=== PATIENT | male | born 1935 | race Caucasian/White ===

== ENCOUNTER 2016-12-15 21:27 | Inpatient (IN) | payer OTHER, MEDICAID ==
[~2016-12-15] VITALS: Ht 175.3 cm; Wt 101.4 kg
[~2016-12-15 21:27] MED LIST: ASCO100072 PO; ASPI-515 PO; CEFT1VIA IV; CELE200C PO; DOCU-30 PO; ERGO500047 PO; FERR325T20 PO; GABA100C PO; HEPA50004 SQ; HYDR-3307 PO; LACT1CAP35 PO; METH1TAB10 PO; METO25TA2 PO; PANT40GR PO; SULF1TAB24 PO; ZINC1CAP; [UNRECOGNIZED DRUG - CODE] PO
[2016-12-15] MEDS ORDERED: ALBUTEROL/IPRATROPIUM 2.5MG/0.5MG, 3 ML ONE (22:12)
[2016-12-15] MEDS ORDERED: CEFTRIAXONE PMX 1GM/50ML 50 ML ONE (22:23)
[2016-12-15] MEDS ORDERED: ALBUTEROL/IPRATROPIUM 2.5MG/0.5MG, 3 ML NPPB ONE (22:30)
[2016-12-15] MEDS ORDERED: SODIUM CHLORIDE 0.9% 1,000ML IVBOLUS ONE ×2 (22:30→23:30)
[2016-12-15] MEDS ORDERED: CEFTRIAXONE PMX 1GM/50ML 50 ML IV ONE (22:30)
[2016-12-15] MEDS ORDERED: SODIUM CHLORIDE FLUSH 10ML SYR IVF ONE (22:30)
[2016-12-15 22:52] LABS: ASPARTATE AMINO TRANSFERASE 68 U/L (15-37); BLOOD UREA NITROGEN 45 mg/dL (7-18)
[2016-12-15 22:59] LABS: IS PT STATUS REG ER OR PRE ER? YES
[2016-12-15] MEDS ORDERED: AZITHROMYCIN 500 MG in SODIUM CHLORIDE 0.9% 250 ML IV ONE (23:30)
[2016-12-15] MEDS ORDERED: LOSA50TA6 PO (23:45)
[2016-12-15] MEDS ORDERED: ASPI-650 PO (23:52)
[2016-12-15] MEDS ORDERED: HYDR-3144 PO (23:52)
[2016-12-15] MEDS ORDERED: LEVO50TA5 PO (23:52)
[2016-12-15] MEDS ORDERED: SENN8.6T79 PO (23:52)
[2016-12-15] MEDS ORDERED: LORA0.5T PO (23:52)
[2016-12-15] MEDS ORDERED: OMEG-160 PO (23:52)
[2016-12-15] MEDS ORDERED: GABA-826 PO (23:52)
[2016-12-15] MEDS ORDERED: ASCO10004 PO (23:52)
[2016-12-15] MEDS ORDERED: FERR324T5 PO (23:52)
[2016-12-15] MEDS ORDERED: CHOL200024 PO (23:52)
[2016-12-16] MEDS ORDERED: DOCUSATE 100 MG CAPSULE PO PRN (02:00)
[2016-12-16] MEDS: AZITHROMYCIN 500 MG in SODIUM CHLORIDE 0.9% 250 ML IV SCH (02:00)
[2016-12-16] MEDS ORDERED: ACETAMINOPHEN 325 MG TABLET PO PRN (02:00)
[2016-12-16] MEDS ORDERED: TRAZODONE 50MG TABLET PO PRN (02:00)
[2016-12-16] MEDS ORDERED: ONDANSETRON 2MG/ML, 2ML IVPush PRN (02:00)
[2016-12-16] MEDS ORDERED: POLYETHYLENE GLYCOL 17 GM PACKET PO PRN (02:00)
[2016-12-16] MEDS: SODIUM CHLORIDE 0.9% 1,000 ML IV SCH ×3 (02:00→18:33)
[2016-12-16] MEDS ORDERED: LABETALOL 5MG/ML, 20ML IVPush PRN (02:00)
[2016-12-16] MEDS ORDERED: BISACODYL 10 MG SUPP PR PRN (02:00)
[2016-12-16] MEDS: HEPARIN 5,000 UNITS/ML, 1ML SQ SCH ×3 (03:35→20:44)
[2016-12-16 05:18] LABS: ASPARTATE AMINO TRANSFERASE 87 U/L (15-37); BLOOD UREA NITROGEN 46 mg/dL (7-18)
[2016-12-16] MEDS: ALBUTEROL/IPRATROPIUM 2.5MG/0.5MG, 3 ML NPPB SCH ×5 (06:00→22:00)
[2016-12-16] MEDS: LEVOTHYROXINE 50 MCG TABLET PO SCH (07:30)
[2016-12-16] MEDS: CHOLECALCIFEROL 1,000 UNIT TABLET PO SCH (08:37)
[2016-12-16] MEDS: ASCORBIC ACID 500 MG TABLET PO SCH (08:37)
[2016-12-16] MEDS: HYDROcodone/APAP 10/325 MG TABLET PO SCH ×3 (08:37→20:43)
[2016-12-16] MEDS: FERROUS SULFATE 325 MG TABLET PO SCH (08:38)
[2016-12-16] MEDS: GABAPENTIN 100 MG CAPSULE PO SCH ×2 (08:38→20:44)
[2016-12-16] MEDS: ASPIRIN 325 MG TABLET EC PO SCH (08:38)
[2016-12-16] MEDS ORDERED: PANTOPRAZOLE GRAN. PKT 40 MG PO SCH (09:00)
[2016-12-16] MEDS ORDERED: FAMOTIDINE 20 MG TABLET PO SCH (09:30)
[2016-12-16 13:58] VITALS: BP 102/53
[2016-12-16 20:04] VITALS: BP 97/44
[2016-12-16] MEDS ORDERED: LOSARTAN 50MG TABLET PO SCH (21:00)
[2016-12-16] MEDS: CEFTRIAXONE PMX 2GM/50ML 50 ML IVPB SCH (22:49)
[2016-12-17] MEDS: SODIUM CHLORIDE 0.9% 1,000 ML IV SCH ×4 (00:58→20:59)
[2016-12-17 02:00] VITALS: BP 133/71
[2016-12-17] MEDS: AZITHROMYCIN 500 MG in SODIUM CHLORIDE 0.9% 250 ML IV SCH (02:00)
[2016-12-17] MEDS: LEVOTHYROXINE 50 MCG TABLET PO SCH (04:44)
[2016-12-17] MEDS: HEPARIN 5,000 UNITS/ML, 1ML SQ SCH ×3 (04:45→20:59)
[2016-12-17 06:00] LABS: BLOOD UREA NITROGEN 43 mg/dL (7-18)
[2016-12-17] MEDS: ALBUTEROL/IPRATROPIUM 2.5MG/0.5MG, 3 ML NPPB SCH ×3 (07:20→20:53)
[2016-12-17 07:26] VITALS: BP 133/63
[2016-12-17] MEDS: HYDROcodone/APAP 10/325 MG TABLET PO SCH ×3 (08:18→20:59)
[2016-12-17] MEDS: FERROUS SULFATE 325 MG TABLET PO SCH (08:18)
[2016-12-17] MEDS: GABAPENTIN 100 MG CAPSULE PO SCH ×2 (08:18→20:59)
[2016-12-17] MEDS: FAMOTIDINE 20 MG TABLET PO SCH (08:19)
[2016-12-17] MEDS: ASPIRIN 325 MG TABLET EC PO SCH (08:19)
[2016-12-17] MEDS: ASCORBIC ACID 500 MG TABLET PO SCH (08:19)
[2016-12-17 13:56] VITALS: BP 114/57
[2016-12-17 20:49] VITALS: BP 110/66
[2016-12-17] MEDS: CEFTRIAXONE PMX 2GM/50ML 50 ML IVPB SCH (22:04)
[2016-12-18 01:10] VITALS: BP 116/49
[2016-12-18] MEDS: AZITHROMYCIN 500 MG in SODIUM CHLORIDE 0.9% 250 ML IV SCH (02:14)
[2016-12-18] MEDS: HEPARIN 5,000 UNITS/ML, 1ML SQ SCH ×3 (05:20→21:01)
[2016-12-18] MEDS: LEVOTHYROXINE 50 MCG TABLET PO SCH (05:20)
[2016-12-18] MEDS: SODIUM CHLORIDE 0.9% 1,000 ML IV SCH ×2 (05:21→12:30)
[2016-12-18 06:01] LABS: BLOOD UREA NITROGEN 32 mg/dL (7-18)
[2016-12-18] MEDS: ALBUTEROL/IPRATROPIUM 2.5MG/0.5MG, 3 ML NPPB SCH ×2 (09:00→22:10)
[2016-12-18 09:14] VITALS: BP 139/57
[2016-12-18] MEDS: FAMOTIDINE 20 MG TABLET PO SCH (10:23)
[2016-12-18] MEDS: FERROUS SULFATE 325 MG TABLET PO SCH (10:23)
[2016-12-18] MEDS: HYDROcodone/APAP 10/325 MG TABLET PO SCH ×3 (10:23→21:11)
[2016-12-18] MEDS: ASPIRIN 325 MG TABLET EC PO SCH (10:24)
[2016-12-18] MEDS: GABAPENTIN 100 MG CAPSULE PO SCH ×2 (10:24→21:11)
[2016-12-18] MEDS: ASCORBIC ACID 500 MG TABLET PO SCH (10:24)
[2016-12-18] MEDS: CHOLECALCIFEROL 1,000 UNIT TABLET PO SCH (10:24)
[2016-12-18 14:42] VITALS: BP 138/61
[2016-12-18 20:43] VITALS: BP 151/67
[2016-12-18] MEDS: CEFTRIAXONE PMX 2GM/50ML 50 ML IVPB SCH (21:14)
[2016-12-19] MEDS: AZITHROMYCIN 500 MG in SODIUM CHLORIDE 0.9% 250 ML IV SCH (01:36)
[2016-12-19 02:27] VITALS: BP 142/75
[2016-12-19] MEDS: HEPARIN 5,000 UNITS/ML, 1ML SQ SCH ×3 (05:32→20:48)
[2016-12-19] MEDS: LEVOTHYROXINE 50 MCG TABLET PO SCH (05:32)
[2016-12-19 05:55] LABS: BLOOD UREA NITROGEN 22 mg/dL (7-18)
[2016-12-19 06:44] LABS: DIFF TOTAL CELLS COUNTED 100 CELL DIFF; VERIFY COUNTS? YES
[2016-12-19 06:46] LABS: ANISOCYTOSIS 1+
[2016-12-19 06:47] LABS: POLYCHROMASIA 1+
[2016-12-19 07:12] VITALS: BP 162/68
[2016-12-19] MEDS ORDERED: FUROSEMIDE 20 MG/2 ML IV ONE (07:30)
[2016-12-19] MEDS: ALBUTEROL/IPRATROPIUM 2.5MG/0.5MG, 3 ML NPPB SCH (09:00)
[2016-12-19] MEDS: FAMOTIDINE 20 MG TABLET PO SCH (09:05)
[2016-12-19] MEDS: HYDROcodone/APAP 10/325 MG TABLET PO SCH ×3 (09:05→20:47)
[2016-12-19] MEDS: ASPIRIN 81 MG TABLET EC PO SCH (09:05)
[2016-12-19] MEDS: FERROUS SULFATE 325 MG TABLET PO SCH (09:05)
[2016-12-19] MEDS: ASCORBIC ACID 500 MG TABLET PO SCH (09:05)
[2016-12-19] MEDS: GABAPENTIN 100 MG CAPSULE PO SCH ×2 (09:05→20:47)
[2016-12-19 14:00] VITALS: BP 139/65
[2016-12-19 18:29] VITALS: BP 150/75
[2016-12-19] MEDS ORDERED: ALBUTEROL/IPRATROPIUM 2.5MG/0.5MG, 3 ML NPPB PRN (21:00)
[2016-12-19] MEDS: CEFTRIAXONE PMX 2GM/50ML 50 ML IVPB SCH (21:57)
[2016-12-20] MEDS: AZITHROMYCIN 500 MG in SODIUM CHLORIDE 0.9% 250 ML IV SCH (02:06)
[2016-12-20 03:00] VITALS: BP 165/81
[2016-12-20 05:32] LABS: BLOOD UREA NITROGEN 16 mg/dL (7-18)
[2016-12-20] MEDS: LEVOTHYROXINE 50 MCG TABLET PO SCH (06:10)
[2016-12-20] MEDS: HEPARIN 5,000 UNITS/ML, 1ML SQ SCH ×3 (06:10→20:43)
[2016-12-20 07:24] VITALS: BP 166/75
[2016-12-20] MEDS: FAMOTIDINE 20 MG TABLET PO SCH ×2 (09:27→20:42)
[2016-12-20] MEDS: FERROUS SULFATE 325 MG TABLET PO SCH (09:27)
[2016-12-20] MEDS: GABAPENTIN 100 MG CAPSULE PO SCH ×2 (09:27→20:42)
[2016-12-20] MEDS: ASCORBIC ACID 500 MG TABLET PO SCH (09:27)
[2016-12-20] MEDS: HYDROcodone/APAP 10/325 MG TABLET PO SCH ×3 (09:27→20:42)
[2016-12-20] MEDS: ASPIRIN 81 MG TABLET EC PO SCH (09:29)
[2016-12-20 13:35] VITALS: BP 147/82
[2016-12-20] MEDS ORDERED: FUROSEMIDE 20 MG/2 ML IV ONE (16:00)
[2016-12-20 19:08] VITALS: BP 166/78
[2016-12-20] MEDS: CEFTRIAXONE PMX 2GM/50ML 50 ML IVPB SCH (22:21)
[2016-12-21 01:16] VITALS: BP 171/81
[2016-12-21] MEDS: AZITHROMYCIN 500 MG in SODIUM CHLORIDE 0.9% 250 ML IV SCH (02:00)
[2016-12-21 03:00] VITALS: BP 164/76
[2016-12-21] MEDS ORDERED: AZITHROMYCIN 500 MG TABLET PO ONE (05:00)
[2016-12-21] MEDS: HEPARIN 5,000 UNITS/ML, 1ML SQ SCH ×4 (05:00→21:43)
[2016-12-21 05:37] LABS: BLOOD UREA NITROGEN 13 mg/dL (7-18)
[2016-12-21] MEDS: LEVOTHYROXINE 50 MCG TABLET PO SCH (06:02)
[2016-12-21 07:13] VITALS: BP 160/70
[2016-12-21] MEDS: ASCORBIC ACID 500 MG TABLET PO SCH (09:30)
[2016-12-21] MEDS: FERROUS SULFATE 325 MG TABLET PO SCH (09:30)
[2016-12-21] MEDS: FAMOTIDINE 20 MG TABLET PO SCH (09:30)
[2016-12-21] MEDS: HYDROcodone/APAP 10/325 MG TABLET PO SCH ×3 (09:30→21:42)
[2016-12-21] MEDS: GABAPENTIN 100 MG CAPSULE PO SCH ×2 (09:30→21:42)
[2016-12-21] MEDS: ASPIRIN 81 MG TABLET EC PO SCH (09:30)
[2016-12-21] MEDS: CHOLECALCIFEROL 1,000 UNIT TABLET PO SCH (09:34)
[2016-12-21 13:31] VITALS: BP 148/66
[2016-12-21] MEDS ORDERED: FUROSEMIDE 20 MG/2 ML IV ONE (14:30)
[2016-12-21 18:40] VITALS: BP 153/68
[2016-12-21] MEDS: DOXYCYCLINE 100MG TABLET PO SCH (21:42)
[2016-12-21] MEDS: CEFDINIR 300 MG CAPSULE PO SCH (21:42)
[2016-12-22 01:18] VITALS: BP 139/74
[2016-12-22] MEDS: HEPARIN 5,000 UNITS/ML, 1ML SQ SCH ×4 (05:00→21:03)
[2016-12-22] MEDS: LEVOTHYROXINE 50 MCG TABLET PO SCH (06:36)
[2016-12-22 07:00] VITALS: BP 164/76
[2016-12-22] MEDS: FAMOTIDINE 20 MG TABLET PO SCH ×2 (08:45→21:02)
[2016-12-22] MEDS: CEFDINIR 300 MG CAPSULE PO SCH ×2 (08:45→21:03)
[2016-12-22] MEDS: ASCORBIC ACID 500 MG TABLET PO SCH (08:45)
[2016-12-22] MEDS: GABAPENTIN 100 MG CAPSULE PO SCH ×2 (08:45→21:03)
[2016-12-22] MEDS: ASPIRIN 81 MG TABLET EC PO SCH (08:45)
[2016-12-22] MEDS: FERROUS SULFATE 325 MG TABLET PO SCH (08:45)
[2016-12-22] MEDS: DOXYCYCLINE 100MG TABLET PO SCH ×2 (08:45→21:02)
[2016-12-22] MEDS: HYDROcodone/APAP 10/325 MG TABLET PO SCH ×3 (08:46→21:03)
[2016-12-22 14:04] VITALS: BP 134/76
[2016-12-22] MEDS ORDERED: MAGNESIUM SULFATE PMX 2GM/50ML 50 ML IV ONE (14:30)
[2016-12-22] MEDS ORDERED: FUROSEMIDE 20 MG/2 ML IV ONE (15:00)
[2016-12-22] MEDS ORDERED: LOSA50TA2 PO (15:18)
[2016-12-22] MEDS ORDERED: CEFD300C37 PO (15:18)
[2016-12-22] MEDS ORDERED: DOXY100T PO (15:18)
[2016-12-22] MEDS ORDERED: FURO-93 PO (15:18)
[2016-12-22 20:42] VITALS: BP 138/60
[2016-12-22] MEDS: LOSARTAN 50MG TABLET PO SCH (21:03)
[2016-12-23 02:25] VITALS: BP 168/76
[2016-12-23] MEDS: LEVOTHYROXINE 50 MCG TABLET PO SCH (05:21)
[2016-12-23] MEDS: HEPARIN 5,000 UNITS/ML, 1ML SQ SCH ×3 (05:22→17:23)
[2016-12-23] MEDS: FUROSEMIDE 20 MG/2 ML IV SCH ×3 (06:03→17:23)
[2016-12-23 08:44] VITALS: BP 161/78
[2016-12-23] MEDS: CHOLECALCIFEROL 1,000 UNIT TABLET PO SCH (08:47)
[2016-12-23] MEDS: GABAPENTIN 100 MG CAPSULE PO SCH ×2 (08:47→21:35)
[2016-12-23] MEDS: CEFDINIR 300 MG CAPSULE PO SCH ×2 (08:47→21:35)
[2016-12-23] MEDS: DOXYCYCLINE 100MG TABLET PO SCH ×2 (08:47→21:35)
[2016-12-23] MEDS: FAMOTIDINE 20 MG TABLET PO SCH ×2 (08:47→21:35)
[2016-12-23] MEDS: FERROUS SULFATE 325 MG TABLET PO SCH (08:47)
[2016-12-23] MEDS: ASPIRIN 81 MG TABLET EC PO SCH (08:48)
[2016-12-23] MEDS: ASCORBIC ACID 500 MG TABLET PO SCH (08:48)
[2016-12-23] MEDS: HYDROcodone/APAP 10/325 MG TABLET PO SCH ×3 (09:04→21:35)
[2016-12-23 15:24] VITALS: BP 119/71
[2016-12-23 20:27] VITALS: BP 115/73
[2016-12-23] MEDS: LOSARTAN 50MG TABLET PO SCH (21:35)
[2016-12-24] MEDS: HEPARIN 5,000 UNITS/ML, 1ML SQ SCH ×4 (01:30→17:00)
[2016-12-24 01:42] VITALS: BP 134/71
[2016-12-24] MEDS: LEVOTHYROXINE 50 MCG TABLET PO SCH (04:45)
[2016-12-24 05:50] LABS: BLOOD UREA NITROGEN 21 mg/dL (7-18)
[2016-12-24 06:35] LABS: DIFF TOTAL CELLS COUNTED 100 CELL DIFF
[2016-12-24 06:40] LABS: ANISOCYTOSIS 1+; POLYCHROMASIA 1+; VERIFY COUNTS? YES
[2016-12-24 07:30] VITALS: BP 141/84
[2016-12-24] MEDS: FUROSEMIDE 20 MG/2 ML IV SCH ×2 (08:01→17:40)
[2016-12-24] MEDS: CEFDINIR 300 MG CAPSULE PO SCH ×2 (10:24→20:13)
[2016-12-24] MEDS: FERROUS SULFATE 325 MG TABLET PO SCH (10:24)
[2016-12-24] MEDS: DOXYCYCLINE 100MG TABLET PO SCH ×2 (10:24→20:13)
[2016-12-24] MEDS: GABAPENTIN 100 MG CAPSULE PO SCH ×2 (10:24→20:13)
[2016-12-24] MEDS: ASCORBIC ACID 500 MG TABLET PO SCH (10:24)
[2016-12-24] MEDS: FAMOTIDINE 20 MG TABLET PO SCH ×2 (10:24→20:13)
[2016-12-24] MEDS: ASPIRIN 81 MG TABLET EC PO SCH (10:24)
[2016-12-24] MEDS: HYDROcodone/APAP 10/325 MG TABLET PO SCH ×3 (10:24→20:13)
[2016-12-24 12:44] VITALS: BP 132/66
[2016-12-24 18:18] VITALS: BP 130/69
[2016-12-24] MEDS: LOSARTAN 50MG TABLET PO SCH (20:13)
[2016-12-25] MEDS: HEPARIN 5,000 UNITS/ML, 1ML SQ SCH ×2 (01:00→08:01)
[2016-12-25 01:28] VITALS: BP 124/69
[2016-12-25] MEDS: LEVOTHYROXINE 50 MCG TABLET PO SCH (06:02)
[2016-12-25 06:52] VITALS: BP 145/83
[2016-12-25] MEDS: ASCORBIC ACID 500 MG TABLET PO SCH (07:59)
[2016-12-25] MEDS: CEFDINIR 300 MG CAPSULE PO SCH (07:59)
[2016-12-25] MEDS: FAMOTIDINE 20 MG TABLET PO SCH (07:59)
[2016-12-25] MEDS: GABAPENTIN 100 MG CAPSULE PO SCH (07:59)
[2016-12-25] MEDS: DOXYCYCLINE 100MG TABLET PO SCH (07:59)
[2016-12-25] MEDS: FUROSEMIDE 20 MG/2 ML IV SCH (07:59)
[2016-12-25] MEDS: FERROUS SULFATE 325 MG TABLET PO SCH (08:00)
[2016-12-25] MEDS: ASPIRIN 81 MG TABLET EC PO SCH (08:00)
[2016-12-25] MEDS: CHOLECALCIFEROL 1,000 UNIT TABLET PO SCH (08:07)
[2016-12-25] MEDS: HYDROcodone/APAP 10/325 MG TABLET PO SCH (08:07)
== END 2016-12-25 14:21 | disposition home or self-care (01) | DRG 871 ==
LOC: ED 23:20 → EDIP 23:31 → CCU 12-16 01:17 → 4WST 12-16 13:10
PROVIDERS: ADMIT Internal Medicine
PROC: 0T9B70Z Drainage of Bladder with Drainage Device, Via Natural or Artificial Opening (ICD-10-PCS; principal; 2016-12-16)
DX: A41.9 Sepsis, unspecified organism (principal); J18.9 Pneumonia, unspecified organism; E43 Unspecified severe protein-calorie malnutrition; J96.01 Acute respiratory failure with hypoxia; I50.31 Acute diastolic (congestive) heart failure; N17.0 Acute kidney failure with tubular necrosis; G82.20 Paraplegia, unspecified; I10 Essential (primary) hypertension; E11.9 Type 2 diabetes mellitus without complications; G89.29 Other chronic pain; M54.9 Dorsalgia, unspecified; D64.9 Anemia, unspecified; D69.6 Thrombocytopenia, unspecified; E03.9 Hypothyroidism, unspecified; E78.5 Hyperlipidemia, unspecified; I11.0 Hypertensive heart disease with heart failure; K21.9 Gastro-esophageal reflux disease without esophagitis; N43.3 Hydrocele, unspecified; N50.89 Other specified disorders of the male genital organs; R65.20 Severe sepsis without septic shock; Z74.01 Bed confinement status; Z79.4 Long term (current) use of insulin; Z85.828 Personal history of other malignant neoplasm of skin; Z87.442 Personal history of urinary calculi; Z87.891 Personal history of nicotine dependence
CPT/HCPCS: 36415; 71010; 76770; 76870; 80048; 80053; 81001; 82436; 82570; 83036; 83605; 83735; 83880; 84133; 84145; 84300; 84439; 84443; 84484; 85025; 85610; 85730; 87040; 87081; 87086; 87324; 93005; 93306; 93970; 94640; 96361; 96365; J0456; J0696; J1644; J7620; J1940; J3475; J7030; J7050

== ENCOUNTER → 2017-02-05 | Outpatient (CLI) | payer OTHER, MEDICAID ==
[~2017-02-05] MED LIST changes: +ASCO10004 PO; +ASPI-650 PO; +CEFD300C37 PO; +CHOL200024 PO; +DOXY100T PO; +FERR324T5 PO; +FURO-93 PO; +GABA-826 PO; +HYDR-3144 PO; +LEVO50TA5 PO; +LORA0.5T PO; +LOSA50TA2 PO; +LOSA50TA6 PO; +OMEG-160 PO; +OMNIPAQUE 350 MG/ML, 75ML BOTTLE ONE; +SENN8.6T79 PO
== END | disposition home or self-care (01) ==
LOC: CFH 14:49
PROVIDERS: ATTEND Physician Assistant Medical
DX: J92.9 Pleural plaque without asbestos (principal); R91.8 Other nonspecific abnormal finding of lung field; I25.10 Atherosclerotic heart disease of native coronary artery without angina pectoris; I51.7 Cardiomegaly; M47.894 Other spondylosis, thoracic region; K76.0 Fatty (change of) liver, not elsewhere classified; Z90.5 Acquired absence of kidney
CPT/HCPCS: 71260; 82565; Q9967

== ENCOUNTER 2018-03-28 11:16 | Inpatient (IN) | payer OTHER, MEDICAID ==
[~2018-03-28] VITALS: Ht 175.3 cm; Wt 89.2 kg
[~2018-03-28 11:16] MED LIST changes: +BISA10SU65 PR; +DOCU-131 PO; -DOCU-30 PO; +FERR325T18 PO; -FERR325T20 PO; +GUAI12009 PO; -HYDR-3144 PO; +HYDR-3245 PO; -LOSA50TA6 PO; +LOSA50TA7 PO; -OMNIPAQUE 350 MG/ML, 75ML BOTTLE ONE; +ZINC50TA3 PO
[2018-03-28 14:27] LABS: BASOPHILS # (AUTO) 0.13 x10^3/uL (0-0.1); BASOPHILS % (AUTO) 1 % (0-1); EOSINOPHILS # (AUTO) 0.74 x10^3/uL (0-0.4); EOSINOPHILS % (AUTO) 6 % (1-7); LYMPHOCYTES # (AUTO) 2.52 x10^3/uL (1-3.4); LYMPHOCYTES % (AUTO) 20 % (22-44); MD NO; MEAN CORPUSCULAR HEMOGLOBIN 28.6 pg (27.5-34.5); MEAN CORPUSCULAR HGB CONC 32.2 g/dL (33.2-36.2); MEAN CORPUSCULAR VOLUME 89.1 fL (81-97); MEAN PLATELET VOLUME 7.9 fL (7.4-10.4); MONOCYTES # (AUTO) 0.68 x10^3/uL (0.2-0.8); MONOCYTES % (AUTO) 5 % (2-9); NEUTROPHILS % (AUTO) 68 % (42-75); PLATELET COUNT 355 x10^3/uL (130-400); RED BLOOD COUNT 4.26 x10^6/uL (4.38-5.82); RED CELL DISTRIBUTION WIDTH 16.3 % (9.4-14.8)
[2018-03-28 14:33] LABS: ANION GAP 8 mmol/L (5-15); CALCIUM 8.5 mg/dL (8.5-10.1); CHLORIDE 110 mmol/L (98-107); CREATININE 2.09 mg/dL (0.7-1.3)
[2018-03-28] MEDS ORDERED: SODIUM CHLORIDE 0.9% 1,000 ML IV ONE (15:16)
[2018-03-28] MEDS ORDERED: SODIUM CHLORIDE FLUSH 10ML SYR IVF ONE (15:30)
[2018-03-28] MEDS ORDERED: SODIUM CHLORIDE 0.9% 1,000ML IVBOLUS ONE (15:30)
[2018-03-28 16:06] LABS: HEMOGLOBIN A1C 6.1 % (4.2-6.3)
[2018-03-28 16:12] LABS: MICROSCOPIC AUTO
[2018-03-28 16:21] LABS: CULTURE INDICATED? YES
[2018-03-28] MEDS ORDERED: morphine SULFATE 10 MG/ML, 1ML IVPush PRN (17:00)
[2018-03-28] MEDS ORDERED: DEXTROSE 50%, 50ML SYRINGE IVPush PRN (17:00)
[2018-03-28] MEDS ORDERED: ONDANSETRON 2MG/ML, 2ML IVPush PRN (17:00)
[2018-03-28] MEDS ORDERED: ACETAMINOPHEN 325 MG TABLET PO PRN (17:00)
[2018-03-28] MEDS ORDERED: DOCUSATE 100 MG CAPSULE PO PRN (17:00)
[2018-03-28] MEDS ORDERED: GLUCAGON 1 MG IM PRN (17:00)
[2018-03-28] MEDS ORDERED: POLYETHYLENE GLYCOL 17 GM PACKET PO PRN (17:00)
[2018-03-28] MEDS ORDERED: SODIUM CHLORIDE FLUSH 10ML SYR IVF PRN (17:00)
[2018-03-28] MEDS ORDERED: BISACODYL 10 MG SUPP PR PRN (17:00)
[2018-03-28] MEDS ORDERED: DEXTROSE 4 GM TAB.CHEW PO PRN (17:00)
[2018-03-28] MEDS ORDERED: CEFTRIAXONE 1,000 MG in SODIUM CHLORIDE 0.9% 50 ML IVPB ONE (17:00)
[2018-03-28] MEDS ORDERED: CALCIUM CHLORIDE 10%, 10ML SYR IVPush ONE (17:00)
[2018-03-28] MEDS ORDERED: CALCIUM CHLORIDE 10%, 10ML SYR ONE (17:32)
[2018-03-28] MEDS ORDERED: CEFTRIAXONE PMX 1GM/50ML 50 ML ONE (17:32)
[2018-03-28] MEDS ORDERED: HEPARIN 5,000 UNITS/ML, 1ML ONE (18:17)
[2018-03-28] MEDS: HEPARIN 5,000 UNITS/ML, 1ML SQ SCH (18:25)
[2018-03-28] MEDS: ERTAPENEM 1 GM in SODIUM CHLORIDE 0.9% 50 ML IV SCH (19:21)
[2018-03-28 20:10] VITALS: BP 124/70
[2018-03-28] MEDS: INSULIN LISPRO 100 UNITS/ML, PEN SQ-INSULIN SCH ×2 (21:00→21:05)
[2018-03-28] MEDS: GUAIFENESIN ER 600 MG TABLET PO SCH (22:29)
[2018-03-28] MEDS: DOCUSATE 100 MG CAPSULE PO SCH (22:30)
[2018-03-28] MEDS: SENNOSIDES 8.6 MG TABLET PO SCH (22:31)
[2018-03-28] MEDS: LORazepam 0.5MG TABLET PO SCH (22:31)
[2018-03-28] MEDS: HYDROcodone/APAP 10/325 MG TABLET PO SCH (22:31)
[2018-03-28] MEDS: FAMOTIDINE 20 MG TABLET PO SCH (22:31)
[2018-03-29] MEDS: SODIUM CHLORIDE 0.9% 1,000 ML IV SCH ×3 (00:24→21:06)
[2018-03-29] MEDS: HEPARIN 5,000 UNITS/ML, 1ML SQ SCH ×3 (02:12→16:59)
[2018-03-29] MEDS: GABAPENTIN 100 MG CAPSULE PO SCH ×3 (02:13→21:07)
[2018-03-29] MEDS: SODIUM CHLORIDE FLUSH 10ML SYR IVF SCH ×3 (02:13→21:06)
[2018-03-29 02:19] VITALS: BP 128/73
[2018-03-29 04:49] VITALS: BP 128/71
[2018-03-29 05:40] LABS: ANION GAP 6 mmol/L (5-15); CALCIUM 7.9 mg/dL (8.5-10.1); CHLORIDE 116 mmol/L (98-107)
[2018-03-29 05:48] LABS: BASOPHILS # (AUTO) 0.14 x10^3/uL (0-0.1); BASOPHILS % (AUTO) 1 % (0-1); EOSINOPHILS % (AUTO) 8 % (1-7); LYMPHOCYTES # (AUTO) 2.38 x10^3/uL (1-3.4); LYMPHOCYTES % (AUTO) 24 % (22-44); MD NO; MEAN CORPUSCULAR HEMOGLOBIN 29.2 pg (27.5-34.5); MEAN CORPUSCULAR HGB CONC 32.9 g/dL (33.2-36.2); MEAN CORPUSCULAR VOLUME 88.8 fL (81-97); MEAN PLATELET VOLUME 8.5 fL (7.4-10.4); MONOCYTES # (AUTO) 0.56 x10^3/uL (0.2-0.8); MONOCYTES % (AUTO) 6 % (2-9); NEUTROPHILS # (AUTO) 5.88 x10^3/uL (1.8-6.8); NEUTROPHILS % (AUTO) 60 % (42-75); PLATELET COUNT 287 x10^3/uL (130-400); RED BLOOD COUNT 3.76 x10^6/uL (4.38-5.82); RED CELL DISTRIBUTION WIDTH 15.9 % (9.4-14.8)
[2018-03-29] MEDS: INSULIN LISPRO 100 UNITS/ML, PEN SQ-INSULIN SCH ×3 (07:00→16:59)
[2018-03-29 08:04] VITALS: BP 136/71
[2018-03-29] MEDS: LEVOTHYROXINE 50 MCG TABLET PO SCH (09:00)
[2018-03-29] MEDS ORDERED: LEVOTHYROXINE 25 MCG TABLET ONE (09:08)
[2018-03-29] MEDS: ASPIRIN 325 MG TABLET EC PO SCH (09:13)
[2018-03-29] MEDS: FAMOTIDINE 20 MG TABLET PO SCH ×2 (09:14→21:07)
[2018-03-29] MEDS: FERROUS SULFATE 325 MG TABLET PO SCH (09:14)
[2018-03-29] MEDS: HYDROcodone/APAP 10/325 MG TABLET PO SCH ×3 (09:14→21:08)
[2018-03-29] MEDS: GUAIFENESIN ER 600 MG TABLET PO SCH ×2 (09:14→21:07)
[2018-03-29] MEDS: SENNOSIDES 8.6 MG TABLET PO SCH ×2 (09:15→21:10)
[2018-03-29] MEDS: DOCUSATE 100 MG CAPSULE PO SCH ×2 (09:15→21:07)
[2018-03-29 13:55] VITALS: BP 117/61
[2018-03-29] MEDS: ERTAPENEM 1 GM in SODIUM CHLORIDE 0.9% 50 ML IV SCH (18:05)
[2018-03-29 20:42] VITALS: BP 131/61
[2018-03-29] MEDS: LORazepam 0.5MG TABLET PO SCH (21:07)
[2018-03-30 02:33] VITALS: BP 137/66
[2018-03-30] MEDS: HEPARIN 5,000 UNITS/ML, 1ML SQ SCH ×2 (04:37→13:09)
[2018-03-30 05:26] LABS: ANION GAP 5 mmol/L (5-15); CALCIUM 7.7 mg/dL (8.5-10.1); CHLORIDE 117 mmol/L (98-107); CREATININE 1.19 mg/dL (0.7-1.3)
[2018-03-30] MEDS: INSULIN LISPRO 100 UNITS/ML, PEN SQ-INSULIN SCH ×3 (06:42→16:02)
[2018-03-30] MEDS ORDERED: LEVOTHYROXINE 25 MCG TABLET ONE (09:07)
[2018-03-30] MEDS: FERROUS SULFATE 325 MG TABLET PO SCH (09:18)
[2018-03-30] MEDS: SENNOSIDES 8.6 MG TABLET PO SCH (09:19)
[2018-03-30] MEDS: GABAPENTIN 100 MG CAPSULE PO SCH (09:20)
[2018-03-30] MEDS: HYDROcodone/APAP 10/325 MG TABLET PO SCH ×2 (09:21→16:02)
[2018-03-30] MEDS: ASPIRIN 325 MG TABLET EC PO SCH (09:21)
[2018-03-30] MEDS: GUAIFENESIN ER 600 MG TABLET PO SCH (09:21)
[2018-03-30] MEDS: FAMOTIDINE 20 MG TABLET PO SCH (09:22)
[2018-03-30] MEDS: DOCUSATE 100 MG CAPSULE PO SCH (09:23)
[2018-03-30] MEDS: LEVOTHYROXINE 50 MCG TABLET PO SCH (09:28)
[2018-03-30 09:49] VITALS: BP 130/70
[2018-03-30] MEDS: SODIUM CHLORIDE 0.9% 1,000 ML IV SCH (11:34)
[2018-03-30] MEDS: SODIUM CHLORIDE FLUSH 10ML SYR IVF SCH (13:08)
[2018-03-30 13:26] VITALS: BP 143/72
[2018-03-30] MEDS ORDERED: ERTA1VIA4 IV (14:21)
[2018-03-30] MEDS: ERTAPENEM 1 GM in SODIUM CHLORIDE 0.9% 50 ML IV SCH (18:28)
[2018-03-30 19:29] VITALS: BP 169/72
== END 2018-03-30 20:03 | disposition home or self-care (01) | DRG 871 ==
LOC: ED 16:41 → EDIP 16:42 → SUATTDRO 16:46 → ED 17:02 → 4NOR 19:53
PROVIDERS: ADMIT Family Medicine; ATTEND Family Medicine
PROC: 0T9B70Z Drainage of Bladder with Drainage Device, Via Natural or Artificial Opening (ICD-10-PCS; 2018-03-28)
PROC: 02HV33Z Insertion of Infusion Device into Superior Vena Cava, Percutaneous Approach (ICD-10-PCS; principal; 2018-03-30)
PROC: B5181ZA Fluoroscopy of Superior Vena Cava using Low Osmolar Contrast, Guidance (ICD-10-PCS; 2018-03-30)
PROC: B548ZZA Ultrasonography of Superior Vena Cava, Guidance (ICD-10-PCS; 2018-03-30)
DX: A41.9 Sepsis, unspecified organism (principal); E43 Unspecified severe protein-calorie malnutrition; N17.0 Acute kidney failure with tubular necrosis; N10 Acute pyelonephritis; Z68.29 Body mass index [BMI] 29.0-29.9, adult; G89.29 Other chronic pain; M54.9 Dorsalgia, unspecified; Z16.24 Resistance to multiple antibiotics; R31.9 Hematuria, unspecified; R53.81 Other malaise; E11.22 Type 2 diabetes mellitus with diabetic chronic kidney disease; E78.5 Hyperlipidemia, unspecified; E86.0 Dehydration; E87.5 Hyperkalemia; I12.9 Hypertensive chronic kidney disease with stage 1 through stage 4 chronic kidney disease, or unspecified chronic kidney disease; K21.9 Gastro-esophageal reflux disease without esophagitis; N18.9 Chronic kidney disease, unspecified; N28.1 Cyst of kidney, acquired; Z66 Do not resuscitate; Z83.3 Family history of diabetes mellitus; Z85.828 Personal history of other malignant neoplasm of skin; Z87.442 Personal history of urinary calculi; Z87.891 Personal history of nicotine dependence; Z90.5 Acquired absence of kidney
CPT/HCPCS: 36415; 36569; 76770; 76937; 77001; 80048; 81001; 82040; 82043; 82570; 82962; 83036; 83605; 83735; 84100; 85025; 87040; 87077; 87086; 87186; 93005; 96372; 96374; 96375; 99285; G0378; J0696; J1335; J1644; C1751; J7030

== ENCOUNTER 2018-04-10 10:32 | Emergency (ER) | payer OTHER, MEDICAID ==
[~2018-04-10] VITALS: Ht 175.3 cm; Wt 90.0 kg
[~2018-04-10 10:32] MED LIST changes: +ERTA1VIA4 IV
[2018-04-10 11:40] LABS: BASOPHILS % (AUTO) 1 % (0-1); EOSINOPHILS # (AUTO) 0.52 x10^3/uL (0-0.4); EOSINOPHILS % (AUTO) 4 % (1-7); LYMPHOCYTES % (AUTO) 17 % (22-44); MD NO; MEAN CORPUSCULAR HEMOGLOBIN 28.7 pg (27.5-34.5); MEAN CORPUSCULAR HGB CONC 32.6 g/dL (33.2-36.2); MEAN CORPUSCULAR VOLUME 88.1 fL (81-97); MEAN PLATELET VOLUME 7.7 fL (7.4-10.4); MONOCYTES # (AUTO) 0.76 x10^3/uL (0.2-0.8); MONOCYTES % (AUTO) 6 % (2-9); NEUTROPHILS # (AUTO) 8.93 x10^3/uL (1.8-6.8); NEUTROPHILS % (AUTO) 72 % (42-75); PLATELET COUNT 339 x10^3/uL (130-400); RED BLOOD COUNT 4.25 x10^6/uL (4.38-5.82); RED CELL DISTRIBUTION WIDTH 14.8 % (9.4-14.8)
[2018-04-10 11:50] LABS: ALBUMIN 2.9 g/dL (3.4-5.0); ANION GAP 8 mmol/L (5-15); CALCIUM 8.3 mg/dL (8.5-10.1); CHLORIDE 113 mmol/L (98-107); CREATININE 1.12 mg/dL (0.7-1.3)
[2018-04-10 13:40] LABS: MICROSCOPIC INDICATED
[2018-04-10 13:45] LABS: CULTURE INDICATED? YES
[2018-04-10 15:26] VITALS: BP 134/70
== END 2018-04-10 15:29 | disposition home or self-care (01) ==
LOC: ED 12:51
DX: R33.9 Retention of urine, unspecified (principal); E11.9 Type 2 diabetes mellitus without complications; I10 Essential (primary) hypertension; K21.9 Gastro-esophageal reflux disease without esophagitis; E78.5 Hyperlipidemia, unspecified; Z87.891 Personal history of nicotine dependence
CPT/HCPCS: 36415; 80048; 81001; 82040; 85025; 87086; 87106; 99284

== ENCOUNTER 2018-06-08 09:56 | Emergency (ER) | payer OTHER, MEDICAID ==
[~2018-06-08] VITALS: Ht 172.7 cm; Wt 80.0 kg
[2018-06-08 09:58] VITALS: BP 135/56
[2018-06-08 10:57] LABS: BASOPHILS # (AUTO) 0.06 x10^3/uL (0-0.1); BASOPHILS % (AUTO) 1 % (0-1); EOSINOPHILS # (AUTO) 0.73 x10^3/uL (0-0.4); EOSINOPHILS % (AUTO) 7 % (1-7); LYMPHOCYTES # (AUTO) 2.44 x10^3/uL (1-3.4); LYMPHOCYTES % (AUTO) 23 % (22-44); MD NO; MEAN CORPUSCULAR HEMOGLOBIN 28.7 pg (27.5-34.5); MEAN CORPUSCULAR HGB CONC 32.3 g/dL (33.2-36.2); MEAN CORPUSCULAR VOLUME 88.9 fL (81-97); MEAN PLATELET VOLUME 7.9 fL (7.4-10.4); MONOCYTES # (AUTO) 0.61 x10^3/uL (0.2-0.8); MONOCYTES % (AUTO) 6 % (2-9); NEUTROPHILS # (AUTO) 6.84 x10^3/uL (1.8-6.8); NEUTROPHILS % (AUTO) 64 % (42-75); PLATELET COUNT 322 x10^3/uL (130-400); RED BLOOD COUNT 4.06 x10^6/uL (4.38-5.82); RED CELL DISTRIBUTION WIDTH 15.4 % (9.4-14.8)
[2018-06-08 11:06] LABS: INTERNATIONAL NORMALIZED RATIO 0.94 (0.93-1.1)
[2018-06-08 11:07] LABS: ANION GAP 7 mmol/L (5-15); CALCIUM 7.6 mg/dL (8.5-10.1); CHLORIDE 109 mmol/L (98-107); CREATININE 1.41 mg/dL (0.7-1.3)
[2018-06-08 11:50] LABS: MICROSCOPIC INDICATED
[2018-06-08 11:51] LABS: CULTURE INDICATED? YES
== END 2018-06-08 13:22 | disposition home or self-care (01) ==
LOC: ED 13:16
DX: R31.0 Gross hematuria (principal); I10 Essential (primary) hypertension; E78.5 Hyperlipidemia, unspecified; E11.9 Type 2 diabetes mellitus without complications; Z87.448 Personal history of other diseases of urinary system; Z87.891 Personal history of nicotine dependence
CPT/HCPCS: 36415; 51702; 80048; 81001; 85025; 85610; 85730; 87077; 87086; 87184; 87186; 99284

== ENCOUNTER 2018-09-20 09:19 | Observation (INO) | payer MEDICARE ==
[~2018-09-20] VITALS: Ht 175.3 cm; Wt 90.1 kg
[~2018-09-20 09:19] MED LIST changes: +FENTANYL PF 100 MCG/2ML IV PRN; +HYDROmorphone 1 MG/ML, 1ML IV PRN; +LABETALOL 5MG/ML, 20ML IV PRN; +LOSA50TA14 PO; -LOSA50TA7 PO; +MEPERIDINE/PF 25MG/0.5ML IVPush PRN; +MIDAZOLAM 1 MG/ML, 2ML IV PRN; +ONDANSETRON 2MG/ML, 2ML IVPush PRN; +OXYcodone 5 MG/5 ML ORAL.SOL UDC PO PRN
[2018-09-20] MEDS ORDERED: PLEASE ENTER HEIGHT AND WEIGHT MC SCH (10:30)
[2018-09-20 10:32] VITALS: BP 116/59
[2018-09-20] MEDS ORDERED: ERTAPENEM 1 GM in SODIUM CHLORIDE 0.9% 50 ML IV STA (10:51)
[2018-09-20] MEDS: LACTATED RINGERS 1,000 ML IV SCH ×2 (11:05→16:04)
[2018-09-20] MEDS ORDERED: FENTANYL PF 100 MCG/2ML ONE (11:16)
[2018-09-20] MEDS ORDERED: MIDAZOLAM 1 MG/ML, 2ML ONE (11:17)
[2018-09-20] MEDS ORDERED: PROPOFOL 10 MG/ML, 20ML ONE (11:20)
[2018-09-20] MEDS ORDERED: METOCLOPRAMIDE 5 MG/ML, 2ML ONE (11:20)
[2018-09-20] MEDS ORDERED: ONDANSETRON 2MG/ML, 2ML ONE (11:20)
[2018-09-20] MEDS ORDERED: DEXAMETHASONE 4 MG/ML, 5ML ONE (11:20)
[2018-09-20] MEDS ORDERED: LIDOCAINE-MPF 2% ,5ML ONE (11:20)
[2018-09-20] MEDS ORDERED: NEOMY/POLYMYXIN B GU IRR. 1 ML ONE (11:21)
[2018-09-20 14:45] VITALS: BP 129/64
[2018-09-20] MEDS ORDERED: D5%-LACTATED RINGERS 1,000 ML IV SCH ×2 (15:00→15:02)
[2018-09-20] MEDS ORDERED: ONDANSETRON 2MG/ML, 2ML IV PRN (15:00)
[2018-09-20] MEDS ORDERED: BISACODYL 10 MG SUPP PR PRN (15:30)
[2018-09-20] MEDS: HYDROcodone/APAP 10/325 MG TABLET PO SCH ×2 (17:28→21:10)
[2018-09-20 19:19] VITALS: BP 100/66
[2018-09-20] MEDS ORDERED: ATORVASTATIN 40 MG TABLET PO SCH (21:00)
[2018-09-20] MEDS ORDERED: LORazepam 0.5MG TABLET PO SCH (21:00)
[2018-09-20] MEDS: DOCUSATE 100 MG CAPSULE PO SCH (21:10)
[2018-09-20] MEDS: SENNOSIDES 8.8 MG/5 ML ORAL SOL PO SCH (21:10)
[2018-09-20] MEDS: GABAPENTIN 100 MG CAPSULE PO SCH (21:10)
[2018-09-20 23:35] VITALS: BP 95/56
[2018-09-21 03:31] VITALS: BP 100/62
[2018-09-21 05:10] LABS: BASOPHILS # (AUTO) 0.01 x10^3/uL (0-0.1); BASOPHILS % (AUTO) 0 % (0-1); EOSINOPHILS % (AUTO) 0 % (1-7); LYMPHOCYTES # (AUTO) 1.01 x10^3/uL (1-3.4); LYMPHOCYTES % (AUTO) 13 % (22-44); MD NO; MEAN CORPUSCULAR HGB CONC 31.6 g/dL (33.2-36.2); MEAN CORPUSCULAR VOLUME 85.6 fL (81-97); MEAN PLATELET VOLUME 7.7 fL (7.4-10.4); MONOCYTES # (AUTO) 0.29 x10^3/uL (0.2-0.8); MONOCYTES % (AUTO) 4 % (2-9); NEUTROPHILS # (AUTO) 6.52 x10^3/uL (1.8-6.8); NEUTROPHILS % (AUTO) 83 % (42-75); PLATELET COUNT 394 x10^3/uL (130-400); RED BLOOD COUNT 3.43 x10^6/uL (4.38-5.82); RED CELL DISTRIBUTION WIDTH 16.1 % (9.4-14.8)
[2018-09-21 05:20] LABS: ANION GAP 4 mmol/L (5-15); CALCIUM 7.8 mg/dL (8.5-10.1); CHLORIDE 111 mmol/L (98-107); CREATININE 2.07 mg/dL (0.7-1.3)
[2018-09-21] MEDS ORDERED: PANTOPROZOLE 40MG TABLET PO SCH (06:00)
[2018-09-21] MEDS ORDERED: LEVOTHYROXINE 50 MCG TABLET PO SCH (06:00)
[2018-09-21 07:03] VITALS: BP 109/63
[2018-09-21] MEDS: SENNOSIDES 8.8 MG/5 ML ORAL SOL PO SCH ×2 (09:00→10:10)
[2018-09-21] MEDS ORDERED: FERROUS SULFATE 325 MG TABLET PO SCH (09:00)
[2018-09-21] MEDS: GABAPENTIN 100 MG CAPSULE PO SCH (09:57)
[2018-09-21] MEDS: DOCUSATE 100 MG CAPSULE PO SCH (09:57)
[2018-09-21] MEDS: HYDROcodone/APAP 10/325 MG TABLET PO SCH (09:57)
[2018-09-21] MEDS ORDERED: ERTAPENEM 1 GM in SODIUM CHLORIDE 0.9% 50 ML IV SCH (10:30)
[2018-09-21] MEDS ORDERED: SULF1TAB24 PO (10:31)
[2018-09-21 13:32] VITALS: BP 127/66
== END 2018-09-21 14:15 | disposition home or self-care (01) ==
LOC: OUT 09:19 → 4NOR 14:29 → OUT 23:15
PROVIDERS: ADMIT Urology; ATTEND Urology
DX: N32.89 Other specified disorders of bladder (principal); R31.0 Gross hematuria; N39.0 Urinary tract infection, site not specified; N18.9 Chronic kidney disease, unspecified; Z93.59 Other cystostomy status; E87.5 Hyperkalemia
CPT/HCPCS: 36415; 51102; 80048; 82962; 85025; 96365; 96366; G0378; J1100; J1335; J2250; J2405; J2704; J2765; J3010; J3490; J7120

== ENCOUNTER 2018-09-28 10:55 | Inpatient (IN) | payer MEDICARE, MEDICAID ==
[~2018-09-28] VITALS: Ht 175.3 cm; Wt 94.9 kg
[~2018-09-28 10:55] MED LIST changes: -FENTANYL PF 100 MCG/2ML IV PRN; -HYDROmorphone 1 MG/ML, 1ML IV PRN; -LABETALOL 5MG/ML, 20ML IV PRN; -MEPERIDINE/PF 25MG/0.5ML IVPush PRN; -MIDAZOLAM 1 MG/ML, 2ML IV PRN; -ONDANSETRON 2MG/ML, 2ML IVPush PRN; -OXYcodone 5 MG/5 ML ORAL.SOL UDC PO PRN
[2018-09-28] MEDS ORDERED: CLOP75TA PO (11:20)
[2018-09-28] MEDS ORDERED: OMEG1CAP24 PO (11:20)
[2018-09-28] MEDS ORDERED: ATOR20TA86 PO (11:20)
[2018-09-28] MEDS ORDERED: LORA0.5T PO (11:22)
[2018-09-28] MEDS ORDERED: SODIUM CHLORIDE FLUSH 10ML SYR IVF ONE ×2 (11:30→13:00)
[2018-09-28] MEDS ORDERED: SODIUM CHLORIDE 0.9% 1,000 ML IV ONE (12:13)
--- NOTE | 2018-09-28 12:18 | NUR ---
BREAK RN: PT RESTING QUIETLY. IV PLACED AND IV BOLUS STARTED. BLOOD SENT TO LAB. NO URINE IN INMAN BAG AT THIS TIME. FAMILY STATES PT HAS HAD DECREASED PO INTAKE AND URINE OUTPUT. PROVIDER AWARE, BLADDER SCAN ORDERED.
[2018-09-28 12:24] LABS: BASOPHILS # (AUTO) 0.09 x10^3/uL (0-0.1); BASOPHILS % (AUTO) 1 % (0-1); EOSINOPHILS # (AUTO) 0.45 x10^3/uL (0-0.4); EOSINOPHILS % (AUTO) 4 % (1-7); LYMPHOCYTES # (AUTO) 1.77 x10^3/uL (1-3.4); LYMPHOCYTES % (AUTO) 16 % (22-44); MD NO; MEAN CORPUSCULAR HEMOGLOBIN 27.1 pg (27.5-34.5); MEAN CORPUSCULAR HGB CONC 31.8 g/dL (33.2-36.2); MEAN CORPUSCULAR VOLUME 85.4 fL (81-97); MEAN PLATELET VOLUME 7.7 fL (7.4-10.4); MONOCYTES # (AUTO) 0.62 x10^3/uL (0.2-0.8); MONOCYTES % (AUTO) 6 % (2-9); NEUTROPHILS # (AUTO) 8.09 x10^3/uL (1.8-6.8); NEUTROPHILS % (AUTO) 73 % (42-75); PLATELET COUNT 367 x10^3/uL (130-400); RED BLOOD COUNT 3.01 x10^6/uL (4.38-5.82); RED CELL DISTRIBUTION WIDTH 17.2 % (9.4-14.8)
[2018-09-28] MEDS ORDERED: SODIUM CHLORIDE 0.9% 1,000ML IVBOLUS ONE (12:30)
[2018-09-28 12:31] LABS: INTERNATIONAL NORMALIZED RATIO 0.99 (0.93-1.1); PROTHROMBIN TIME 10.4 Seconds (9.6-11.5)
[2018-09-28 12:32] LABS: ALBUMIN 2.5 g/dL (3.4-5.0); CALCIUM 7.6 mg/dL (8.5-10.1); CREATININE 3.88 mg/dL (0.7-1.3)
[2018-09-28 12:44] LABS: ANION GAP 8 mmol/L (5-15); CHLORIDE 110 mmol/L (98-107)
[2018-09-28] MEDS ORDERED: INSULIN REGULAR 100 UNITS/ML, 3ML VIAL IVPush ONE (13:00)
[2018-09-28] MEDS ORDERED: CALCIUM CHLORIDE 10%, 10ML SYR IVPush ONE (13:00)
[2018-09-28] MEDS ORDERED: SODIUM BICARB 8.4%, 50ML SYRINGE IVPush ONE (13:00)
[2018-09-28] MEDS ORDERED: DEXTROSE 50%, 50ML SYRINGE IVPush ONE ×2 (13:00→22:30)
--- NOTE | 2018-09-28 13:01 | NUR ---
BLADDER SCAN PERFORMED WITH 135MG IN BLADDER. DR. MIRELES NOTIFIED. ALSO NOTIFIED DR. MIRELES THAT PATIENT NO PRODUCING URINE TO COME OUT INTO THE SUPRAPUBIC CATHETER TUBE AND THEREFORE UNABLE TO SEND URINE SAMPLE TO LAB.
[2018-09-28] MEDS ORDERED: DEXTROSE 50%, 50ML SYRINGE ONE (13:04)
[2018-09-28] MEDS ORDERED: CALCIUM CHLORIDE 10%, 10ML SYR ONE (13:04)
[2018-09-28] MEDS ORDERED: SODIUM BICARBONATE 1 MEQ/ML, 50ML VIAL ONE (13:04)
[2018-09-28] MEDS ORDERED: INSULIN SINGLE DOSE, ER SQ-INSULIN ONE (13:05)
[2018-09-28] MEDS ORDERED: SODIUM CHLORIDE FLUSH 10ML SYR IVF PRN (13:30)
[2018-09-28 14:09] LABS: MICROSCOPIC INDICATED
[2018-09-28 14:31] LABS: CULTURE INDICATED? YES
--- NOTE | 2018-09-28 15:07 | NUR ---
SB[facility] TELEPHONE HAND-OFF REPORT GIVEN TO RENETTA VILLALTA. PATIENT WILL BE READY TO GO TO HOSPITAL ROOM AFTER ULTRASOUND IN PROGRESS.
[2018-09-28 16:07] LABS: ANION GAP 6 mmol/L (5-15); CALCIUM 7.8 mg/dL (8.5-10.1); CHLORIDE 115 mmol/L (98-107)
[2018-09-28 16:09] LABS: CREATININE 3.63 mg/dL (0.7-1.3)
[2018-09-28] MEDS ORDERED: POLYETHYLENE GLYCOL 17 GM PACKET PO PRN (16:30)
[2018-09-28] MEDS ORDERED: hydrALAzine 20 MG/ML, 1ML IVPush PRN (16:30)
[2018-09-28] MEDS ORDERED: LIDODERM 5% PATCH TD PRN (16:30)
[2018-09-28] MEDS ORDERED: DOCUSATE 100 MG CAPSULE PO PRN (16:30)
[2018-09-28] MEDS ORDERED: ONDANSETRON ODT 4 MG PO PRN (16:30)
[2018-09-28] MEDS ORDERED: BISACODYL 10 MG SUPP PR PRN (16:30)
[2018-09-28] MEDS ORDERED: CHOLECALCIFEROL 1,000 UNIT TABLET PO SCH (17:00)
[2018-09-28 17:19] LABS: BASOPHILS # (AUTO) 0.06 x10^3/uL (0-0.1); BASOPHILS % (AUTO) 1 % (0-1); EOSINOPHILS # (AUTO) 0.41 x10^3/uL (0-0.4); EOSINOPHILS % (AUTO) 4 % (1-7); LYMPHOCYTES # (AUTO) 1.61 x10^3/uL (1-3.4); LYMPHOCYTES % (AUTO) 15 % (22-44); MD NO; MEAN CORPUSCULAR HEMOGLOBIN 27.7 pg (27.5-34.5); MEAN CORPUSCULAR HGB CONC 32.5 g/dL (33.2-36.2); MEAN CORPUSCULAR VOLUME 85.3 fL (81-97); MEAN PLATELET VOLUME 7.5 fL (7.4-10.4); MONOCYTES # (AUTO) 0.73 x10^3/uL (0.2-0.8); MONOCYTES % (AUTO) 7 % (2-9); NEUTROPHILS # (AUTO) 8.12 x10^3/uL (1.8-6.8); NEUTROPHILS % (AUTO) 74 % (42-75); PLATELET COUNT 388 x10^3/uL (130-400); RED BLOOD COUNT 2.97 x10^6/uL (4.38-5.82); RED CELL DISTRIBUTION WIDTH 16.8 % (9.4-14.8)
[2018-09-28 17:27] LABS: ANION GAP 8 mmol/L (5-15); CHLORIDE 114 mmol/L (98-107); CREATININE 3.62 mg/dL (0.7-1.3)
[2018-09-28 17:29] LABS: HCT (SEDRATE) 25.4 % (39.2-51.8)
[2018-09-28 17:37] LABS: HEMOGLOBIN A1C 6.6 % (4.2-6.3)
[2018-09-28] MEDS: SODIUM BICARBONATE 8.4% 150 MEQ in DEXTROSE 5% 1,000 ML IV SCH (17:51)
[2018-09-28] MEDS: DICLOXACILLIN 250 MG CAPSULE PO SCH ×2 (17:51→23:20)
[2018-09-28 18:45] LABS: FREE T4 (FREE THYROXINE) 0.93 ng/dL (0.76-1.46); THYROID STIMULATING HORMONE 1.42 mIU/L (0.358-3.740)
[2018-09-28 19:00] VITALS: BP 106/56
[2018-09-28] MEDS: INSULIN LISPRO 100 UNITS/ML, PEN SQ-INSULIN SCH (21:00)
[2018-09-28] MEDS: LORazepam 0.5MG TABLET PO SCH (21:33)
[2018-09-28] MEDS: HYDROcodone/APAP 10/325 MG TABLET PO SCH (21:33)
[2018-09-28] MEDS: SENNOSIDES 8.6 MG TABLET PO SCH (21:33)
[2018-09-28] MEDS: DOCUSATE 100 MG CAPSULE PO SCH (21:33)
[2018-09-28] MEDS: GABAPENTIN 100 MG CAPSULE PO SCH (21:33)
[2018-09-28 21:45] LABS: ANION GAP 4 mmol/L (5-15); CALCIUM 7.6 mg/dL (8.5-10.1); CHLORIDE 114 mmol/L (98-107); CREATININE 3.55 mg/dL (0.7-1.3)
[2018-09-28] MEDS ORDERED: SODIUM POLYSTYRENE SULFONATE ORAL SUSP PO ONE (22:30)
[2018-09-28] MEDS ORDERED: INSULIN REGULAR 100 UNITS/ML, 3ML VIAL IVPush SCH (22:30)
[2018-09-29] VITALS: BP 115/64
[2018-09-29] MEDS: SODIUM BICARBONATE 8.4% 150 MEQ in DEXTROSE 5% 1,000 ML IV SCH (00:42)
[2018-09-29 01:12] VITALS: BP 131/64
[2018-09-29] MEDS: ACETAMINOPHEN 325 MG TABLET PO PRN ×2 (05:55→21:19)
[2018-09-29] MEDS: DICLOXACILLIN 250 MG CAPSULE PO SCH ×4 (05:55→22:47)
[2018-09-29 06:23] LABS: MEAN CORPUSCULAR HEMOGLOBIN 26.6 pg (27.5-34.5); MEAN CORPUSCULAR HGB CONC 31.1 g/dL (33.2-36.2); MEAN CORPUSCULAR VOLUME 85.5 fL (81-97); MEAN PLATELET VOLUME 7.7 fL (7.4-10.4); PLATELET COUNT 353 x10^3/uL (130-400); RED BLOOD COUNT 2.67 x10^6/uL (4.38-5.82); RED CELL DISTRIBUTION WIDTH 16.6 % (9.4-14.8)
[2018-09-29 06:30] LABS: ALBUMIN 2.2 g/dL (3.4-5.0); ANION GAP 7 mmol/L (5-15); CALCIUM 7.5 mg/dL (8.5-10.1); CHLORIDE 115 mmol/L (98-107)
[2018-09-29 06:33] LABS: % IRON SATURATION 15 % (20-55); ALANINE AMINOTRANSFERASE 17 U/L (12-78); ALKALINE PHOSPHATASE 73 U/L (45-117); BILIRUBIN,TOTAL 0.2 mg/dL (0.2-1.0); CREATININE 3.43 mg/dL (0.7-1.3); IRON LEVEL 24 mcg/dL (65-175); TOTAL IRON BINDING CAPACITY 163 mcg/dL (250-450); TOTAL PROTEIN 5.9 g/dL (6.4-8.2)
[2018-09-29 06:48] LABS: ANISOCYTOSIS 1+; BASOPHILS # (AUTO) 0.08 x10^3/uL (0-0.1); BASOPHILS % (AUTO) 1 % (0-1); EOSINOPHILS # (AUTO) 0.53 x10^3/uL (0-0.4); EOSINOPHILS % (AUTO) 5 % (1-7); LYMPHOCYTES # (AUTO) 1.86 x10^3/uL (1-3.4); LYMPHOCYTES % (AUTO) 16 % (22-44); MD MORPH REVIEW ONLY; MONOCYTES # (AUTO) 0.83 x10^3/uL (0.2-0.8); MONOCYTES % (AUTO) 7 % (2-9); NEUTROPHILS # (AUTO) 8.37 x10^3/uL (1.8-6.8); NEUTROPHILS % (AUTO) 72 % (42-75); OVALOCYTES 1+; POLYCHROMASIA 1+
[2018-09-29 06:49] LABS: <PLATELET ESTIMATE> ADEQUATE; <PLT MORPHOLOGY> NORMAL PLT MORPH
[2018-09-29] MEDS: INSULIN LISPRO 100 UNITS/ML, PEN SQ-INSULIN SCH ×4 (07:00→21:21)
[2018-09-29 07:22] VITALS: BP 136/60
[2018-09-29] MEDS ORDERED: PANTOPRAZOLE GRAN. PKT 40 MG PO SCH (09:00)
[2018-09-29] MEDS ORDERED: LEVOTHYROXINE 50 MCG TABLET PO SCH (09:00)
[2018-09-29] MEDS: BISACODYL 10 MG SUPP PR SCH (09:00)
[2018-09-29] MEDS ORDERED: SODIUM POLYSTYRENE SULFONATE ORAL SUSP PO ONE (10:30)
[2018-09-29] MEDS: GABAPENTIN 100 MG CAPSULE PO SCH ×2 (11:03→21:19)
[2018-09-29] MEDS: DOCUSATE 100 MG CAPSULE PO SCH ×2 (11:03→21:20)
[2018-09-29] MEDS: OMEGA-3/FISH OIL CAPSULE PO SCH (11:03)
[2018-09-29] MEDS: PANTOPROZOLE 40MG TABLET PO SCH (11:03)
[2018-09-29] MEDS: FERROUS SULFATE 325 MG TABLET PO SCH (11:03)
[2018-09-29] MEDS: ATORVASTATIN 40 MG TABLET PO SCH (11:03)
[2018-09-29] MEDS: HYDROcodone/APAP 10/325 MG TABLET PO SCH ×3 (11:03→21:20)
[2018-09-29] MEDS: SENNOSIDES 8.6 MG TABLET PO SCH ×2 (11:04→21:19)
[2018-09-29] MEDS: ASCORBIC ACID 500 MG TABLET PO SCH (11:04)
[2018-09-29] MEDS: IRON SUCROSE COMPLEX 100MG/5ML IV SCH (11:04)
[2018-09-29] MEDS: ZINC SULFATE 220 MG CAPSULE PO SCH (11:04)
[2018-09-29] MEDS ORDERED: LEVOTHYROXINE 50 MCG TABLET PO ONE (11:30)
[2018-09-29 13:16] VITALS: BP 139/65
[2018-09-29 19:20] VITALS: BP 147/65
[2018-09-29] MEDS: LORazepam 0.5MG TABLET PO SCH (21:20)
[2018-09-30] VITALS (9 sets, daily range): BP systolic 116–152; BP diastolic 54–72
[2018-09-30] MEDS ORDERED: LIDOCAINE-MPF 1%, 5ML INFIL ONE (00:30)
[2018-09-30] MEDS ORDERED: LIDOCAINE 2%, 6 ML JEL.PF.APP MM ONE (01:30)
[2018-09-30] MEDS: DICLOXACILLIN 250 MG CAPSULE PO SCH ×4 (05:13→22:23)
[2018-09-30] MEDS: LEVOTHYROXINE 50 MCG TABLET PO SCH (05:13)
[2018-09-30 05:58] LABS: MEAN CORPUSCULAR HEMOGLOBIN 27.3 pg (27.5-34.5); MEAN CORPUSCULAR HGB CONC 32.3 g/dL (33.2-36.2); MEAN CORPUSCULAR VOLUME 84.6 fL (81-97); MEAN PLATELET VOLUME 7.8 fL (7.4-10.4); PLATELET COUNT 367 x10^3/uL (130-400); RED CELL DISTRIBUTION WIDTH 16.4 % (9.4-14.8)
[2018-09-30 06:09] LABS: ALBUMIN 2.2 g/dL (3.4-5.0); ANION GAP 8 mmol/L (5-15); CALCIUM 7.4 mg/dL (8.5-10.1); CHLORIDE 113 mmol/L (98-107); CREATININE 3.11 mg/dL (0.7-1.3)
[2018-09-30 06:35] LABS: MD MORPH REVIEW ONLY
[2018-09-30 06:36] LABS: BASOPHILS # (AUTO) 0.05 x10^3/uL (0-0.1); BASOPHILS % (AUTO) 0 % (0-1); EOSINOPHILS # (AUTO) 0.04 x10^3/uL (0-0.4); EOSINOPHILS % (AUTO) 0 % (1-7); HYPOCHROMIA 1+; LYMPHOCYTES # (AUTO) 1.37 x10^3/uL (1-3.4); LYMPHOCYTES % (AUTO) 10 % (22-44); MONOCYTES # (AUTO) 0.82 x10^3/uL (0.2-0.8); MONOCYTES % (AUTO) 6 % (2-9); NEUTROPHILS # (AUTO) 11.12 x10^3/uL (1.8-6.8); NEUTROPHILS % (AUTO) 83 % (42-75); POLYCHROMASIA 1+
[2018-09-30 06:37] LABS: <PLATELET ESTIMATE> ADEQUATE; <PLT MORPHOLOGY> NORMAL PLT MORPH; ANISOCYTOSIS 2+; OVALOCYTES 1+
[2018-09-30] MEDS: INSULIN LISPRO 100 UNITS/ML, PEN SQ-INSULIN SCH ×4 (07:00→21:00)
[2018-09-30] MEDS: PANTOPROZOLE 40MG TABLET PO SCH (07:30)
[2018-09-30] MEDS: ZINC SULFATE 220 MG CAPSULE PO SCH (09:00)
[2018-09-30] MEDS: GABAPENTIN 100 MG CAPSULE PO SCH ×2 (09:00→22:23)
[2018-09-30] MEDS: ASCORBIC ACID 500 MG TABLET PO SCH (09:00)
[2018-09-30] MEDS: FERROUS SULFATE 325 MG TABLET PO SCH (09:00)
[2018-09-30] MEDS: HYDROcodone/APAP 10/325 MG TABLET PO SCH ×3 (09:00→22:23)
[2018-09-30] MEDS: SENNOSIDES 8.6 MG TABLET PO SCH ×2 (09:00→22:23)
[2018-09-30] MEDS: BISACODYL 10 MG SUPP PR SCH (09:00)
[2018-09-30] MEDS: ATORVASTATIN 40 MG TABLET PO SCH (09:00)
[2018-09-30] MEDS: DOCUSATE 100 MG CAPSULE PO SCH ×2 (09:00→22:23)
[2018-09-30] MEDS: OMEGA-3/FISH OIL CAPSULE PO SCH (09:00)
[2018-09-30] MEDS: IRON SUCROSE COMPLEX 100MG/5ML IV SCH (10:05)
[2018-09-30] MEDS ORDERED: NALOXONE 1 MG/ML, 2ML ONE (16:32)
[2018-09-30] MEDS ORDERED: FENTANYL PF 100 MCG/2ML ONE (16:32)
[2018-09-30] MEDS ORDERED: MIDAZOLAM 1 MG/ML, 5ML ONE (16:32)
[2018-09-30] MEDS ORDERED: FLUMAZENIL 0.1 MG/1 ML, 5ML ONE (16:32)
[2018-09-30] MEDS ORDERED: LIDOCAINE-MPF 1%, 5ML ONE (16:33)
[2018-09-30] MEDS: CEFAZOLIN PMX 1GM/50ML 50 ML IVPB SCH (17:00)
[2018-09-30] MEDS ORDERED: DEXTROSE 50%, 50ML SYRINGE IVPush PRN (17:00)
[2018-09-30] MEDS ORDERED: DEXTROSE 4 GM TAB.CHEW PO PRN (17:00)
[2018-09-30] MEDS ORDERED: GLUCAGON 1 MG IM PRN (17:00)
[2018-09-30] MEDS: LORazepam 0.5MG TABLET PO SCH (22:23)
[2018-09-30] MEDS: SODIUM CHLORIDE FLUSH 10ML SYR IVF SCH (22:24)
[2018-09-30] MEDS: SODIUM CHLORIDE 0.45% 1,000 ML IV SCH (22:24)
[2018-10-01] VITALS (8 sets, daily range): BP systolic 83–134; BP diastolic 35–76
[2018-10-01] MEDS: CEFAZOLIN PMX 1GM/50ML 50 ML IVPB SCH ×4 (00:56→23:46)
[2018-10-01] MEDS: DICLOXACILLIN 250 MG CAPSULE PO SCH ×4 (05:49→23:46)
[2018-10-01] MEDS: LEVOTHYROXINE 50 MCG TABLET PO SCH (05:50)
[2018-10-01 06:44] LABS: MEAN CORPUSCULAR HEMOGLOBIN 28.7 pg (27.5-34.5); MEAN CORPUSCULAR HGB CONC 33.7 g/dL (33.2-36.2); MEAN CORPUSCULAR VOLUME 85.4 fL (81-97); MEAN PLATELET VOLUME 7.8 fL (7.4-10.4); PLATELET COUNT 299 x10^3/uL (130-400); RED BLOOD COUNT 2.58 x10^6/uL (4.38-5.82); RED CELL DISTRIBUTION WIDTH 16.9 % (9.4-14.8)
[2018-10-01 06:46] LABS: ALANINE AMINOTRANSFERASE 13 U/L (12-78); ALBUMIN 1.9 g/dL (3.4-5.0); ANION GAP 10 mmol/L (5-15); CALCIUM 7.1 mg/dL (8.5-10.1); CHLORIDE 114 mmol/L (98-107); CREATININE 2.58 mg/dL (0.7-1.3)
[2018-10-01 06:48] LABS: ALKALINE PHOSPHATASE 67 U/L (45-117); BILIRUBIN,TOTAL 0.2 mg/dL (0.2-1.0); TOTAL PROTEIN 5.1 g/dL (6.4-8.2)
[2018-10-01] MEDS: INSULIN LISPRO 100 UNITS/ML, PEN SQ-INSULIN SCH ×4 (07:00→21:00)
[2018-10-01] MEDS: PANTOPROZOLE 40MG TABLET PO SCH (07:30)
[2018-10-01] MEDS ORDERED: FENTANYL PF 100 MCG/2ML ONE (08:30)
[2018-10-01] MEDS ORDERED: PROPOFOL 10 MG/ML, 20ML ONE ×2 (08:31→09:48)
[2018-10-01 08:56] LABS: BASOPHILS # (AUTO) 0.04 x10^3/uL (0-0.1); BASOPHILS % (AUTO) 0 % (0-1); EOSINOPHILS % (AUTO) 4 % (1-7); LYMPHOCYTES # (AUTO) 1.77 x10^3/uL (1-3.4); LYMPHOCYTES % (AUTO) 12 % (22-44); MD SCAN; MONOCYTES % (AUTO) 6 % (2-9); NEUTROPHILS # (AUTO) 11.14 x10^3/uL (1.8-6.8); NEUTROPHILS % (AUTO) 77 % (42-75)
[2018-10-01] MEDS ORDERED: hydrALAzine 20 MG/ML, 1ML IV PRN (09:00)
[2018-10-01] MEDS ORDERED: ALBUTEROL SULFATE 2.5 MG/3 ML NPPB PRN (09:00)
[2018-10-01] MEDS: OMEGA-3/FISH OIL CAPSULE PO SCH (09:00)
[2018-10-01] MEDS ORDERED: MIDAZOLAM 1 MG/ML, 2ML IV PRN (09:00)
[2018-10-01] MEDS ORDERED: OXYcodone 5 MG/5 ML ORAL.SOL UDC PO PRN (09:00)
[2018-10-01] MEDS ORDERED: PROMETHAZINE 25 MG/ML, 1ML IV PRN (09:00)
[2018-10-01] MEDS ORDERED: MORPHINE SULFATE 4 MG/ML, 1ML IVPush PRN (09:00)
[2018-10-01] MEDS ORDERED: MEPERIDINE/PF 25MG/0.5ML IVPush PRN (09:00)
[2018-10-01] MEDS ORDERED: ONDANSETRON ODT 8 MG PO PRN (09:00)
[2018-10-01] MEDS ORDERED: LABETALOL 5MG/ML, 20ML IV PRN (09:00)
[2018-10-01] MEDS ORDERED: ONDANSETRON 2MG/ML, 2ML IV PRN (09:00)
[2018-10-01] MEDS ORDERED: HYDROmorphone 2 MG/ML, 1ML IVPush PRN (09:00)
[2018-10-01] MEDS: SODIUM CHLORIDE FLUSH 10ML SYR IVF SCH ×2 (09:00→22:52)
[2018-10-01] MEDS ORDERED: EPHEDRINE 50 MG/ML, 1ML IVPush PRN (09:00)
[2018-10-01] MEDS ORDERED: PROMETHAZINE 12.5 MG SUPP PR PRN (09:00)
[2018-10-01] MEDS ORDERED: DIAZEPAM 5 MG/ML, 2ML IVPush PRN (09:00)
[2018-10-01] MEDS ORDERED: HALOPERIDOL 5 MG/ML IV PRN (09:00)
[2018-10-01] MEDS ORDERED: FENTANYL PF 100 MCG/2ML IV PRN (09:00)
[2018-10-01] MEDS ORDERED: MEROPENEM 500 MG in SODIUM CHLORIDE 0.9% 100 ML IV ONE (09:00)
[2018-10-01] MEDS ORDERED: LIDOCAINE-MPF 2% ,5ML ONE (09:48)
[2018-10-01] MEDS ORDERED: VASOPRESSIN 20 UNIT/ML, 1ML ONE (09:48)
[2018-10-01] MEDS ORDERED: ONDANSETRON 2MG/ML, 2ML ONE ×2 (09:48)
[2018-10-01] MEDS: IRON SUCROSE COMPLEX 100MG/5ML IV SCH (12:12)
[2018-10-01] MEDS: SODIUM CHLORIDE 0.45% 1,000 ML IV SCH ×2 (12:12→22:55)
[2018-10-01] MEDS: DOCUSATE 100 MG CAPSULE PO SCH ×2 (12:12→22:52)
[2018-10-01] MEDS: ZINC SULFATE 220 MG CAPSULE PO SCH (12:13)
[2018-10-01] MEDS: ASCORBIC ACID 500 MG TABLET PO SCH (12:13)
[2018-10-01] MEDS: FERROUS SULFATE 325 MG TABLET PO SCH (12:13)
[2018-10-01] MEDS: HYDROcodone/APAP 10/325 MG TABLET PO SCH ×3 (12:13→21:00)
[2018-10-01] MEDS: SENNOSIDES 8.6 MG TABLET PO SCH ×2 (12:13→22:52)
[2018-10-01] MEDS: GABAPENTIN 100 MG CAPSULE PO SCH ×2 (12:13→22:52)
[2018-10-01] MEDS: LORazepam 0.5MG TABLET PO SCH (21:00)
[2018-10-01] MEDS: ATORVASTATIN 40 MG TABLET PO SCH (22:52)
[2018-10-02] VITALS (13 sets, daily range): BP systolic 85–112; BP diastolic 34–58
[2018-10-02] MEDS: DICLOXACILLIN 250 MG CAPSULE PO SCH ×4 (05:28→23:39)
[2018-10-02] MEDS: LEVOTHYROXINE 50 MCG TABLET PO SCH (05:58)
[2018-10-02 06:12] LABS: MEAN CORPUSCULAR HEMOGLOBIN 28.6 pg (27.5-34.5); MEAN CORPUSCULAR VOLUME 86.5 fL (81-97); MEAN PLATELET VOLUME 7.5 fL (7.4-10.4); PLATELET COUNT 253 x10^3/uL (130-400); RED BLOOD COUNT 2.13 x10^6/uL (4.38-5.82); RED CELL DISTRIBUTION WIDTH 17.1 % (9.4-14.8)
[2018-10-02 06:20] LABS: ANION GAP 8 mmol/L (5-15); CALCIUM 6.5 mg/dL (8.5-10.1); CHLORIDE 112 mmol/L (98-107)
[2018-10-02 06:21] LABS: CREATININE 2.16 mg/dL (0.7-1.3)
[2018-10-02] MEDS: INSULIN LISPRO 100 UNITS/ML, PEN SQ-INSULIN SCH ×4 (07:00→21:00)
[2018-10-02] MEDS: ZINC SULFATE 220 MG CAPSULE PO SCH (08:28)
[2018-10-02] MEDS: SENNOSIDES 8.6 MG TABLET PO SCH ×2 (08:28→23:39)
[2018-10-02] MEDS: PANTOPROZOLE 40MG TABLET PO SCH (08:29)
[2018-10-02] MEDS: ASCORBIC ACID 500 MG TABLET PO SCH (08:29)
[2018-10-02] MEDS: DOCUSATE 100 MG CAPSULE PO SCH ×2 (08:29→23:39)
[2018-10-02] MEDS: FERROUS SULFATE 325 MG TABLET PO SCH (08:29)
[2018-10-02] MEDS: HYDROcodone/APAP 10/325 MG TABLET PO SCH ×3 (08:29→23:40)
[2018-10-02] MEDS: ATORVASTATIN 40 MG TABLET PO SCH (08:29)
[2018-10-02] MEDS: IRON SUCROSE COMPLEX 100MG/5ML IV SCH (08:29)
[2018-10-02] MEDS: GABAPENTIN 100 MG CAPSULE PO SCH ×2 (08:29→23:40)
[2018-10-02] MEDS: OMEGA-3/FISH OIL CAPSULE PO SCH (08:29)
[2018-10-02] MEDS: SODIUM CHLORIDE FLUSH 10ML SYR IVF SCH ×2 (08:30→21:00)
[2018-10-02] MEDS: CEFAZOLIN PMX 1GM/50ML 50 ML IVPB SCH (08:30)
[2018-10-02] MEDS: SODIUM CHLORIDE 0.45% 1,000 ML IV SCH ×2 (08:31→22:00)
[2018-10-02 08:39] LABS: MD YES
[2018-10-02 08:41] LABS: <PLATELET ESTIMATE> ADEQUATE; <PLT MORPHOLOGY> NORMAL PLT MORPH; BAND#(MANUAL) 0.11 x10^3/uL; BANDS%(MANUAL) 1 % (0-7); EOS#(MANUAL) 0.34 x10^3/uL (0.0-0.4); EOS% (MANUAL) 3 % (1-7); LYMPH#(MANUAL) 2.03 x10^3/uL (1-3.4); LYMPHS% (MANUAL) 18 % (22-44); MONOS#(MANUAL) 0.45 x10^3/uL (0.3-2.7); MONOS% (MANUAL) 4 % (2-9); MYELOCYTES# (MANUAL) 0.23 x10^3/uL (0-0); MYELOCYTES% (MANUAL) 2 % (0-0); POLYCHROMASIA 1+; SEG#(MANUAL) 8.14 x10^3/uL (1.8-6.8); SEGS% (MANUAL) 72 % (42-75)
[2018-10-02 08:43] LABS: ANISOCYTOSIS 1+; BASOPHILLIC STIPPLING 1+
[2018-10-02] MEDS: LORazepam 0.5MG TABLET PO SCH (23:40)
[2018-10-03 01:00] VITALS: BP 112/55
[2018-10-03] MEDS: DICLOXACILLIN 250 MG CAPSULE PO SCH ×4 (05:00→23:46)
[2018-10-03] MEDS: LEVOTHYROXINE 50 MCG TABLET PO SCH (06:00)
[2018-10-03] MEDS: SODIUM CHLORIDE 0.45% 1,000 ML IV SCH ×2 (06:12→18:39)
[2018-10-03] MEDS: PANTOPROZOLE 40MG TABLET PO SCH (06:12)
[2018-10-03 06:38] LABS: MEAN CORPUSCULAR HEMOGLOBIN 29.6 pg (27.5-34.5); MEAN CORPUSCULAR HGB CONC 33.7 g/dL (33.2-36.2); MEAN CORPUSCULAR VOLUME 87.6 fL (81-97); MEAN PLATELET VOLUME 7.4 fL (7.4-10.4); PLATELET COUNT 237 x10^3/uL (130-400); RED BLOOD COUNT 2.89 x10^6/uL (4.38-5.82); RED CELL DISTRIBUTION WIDTH 16.2 % (9.4-14.8)
[2018-10-03 07:00] LABS: ALBUMIN 1.7 g/dL (3.4-5.0); ANION GAP 7 mmol/L (5-15); CALCIUM 6.5 mg/dL (8.5-10.1); CHLORIDE 114 mmol/L (98-107)
[2018-10-03] MEDS: INSULIN LISPRO 100 UNITS/ML, PEN SQ-INSULIN SCH ×4 (07:00→20:41)
[2018-10-03 07:03] LABS: ALANINE AMINOTRANSFERASE 7 U/L (12-78); ALKALINE PHOSPHATASE 60 U/L (45-117); BILIRUBIN,TOTAL 0.3 mg/dL (0.2-1.0); TOTAL PROTEIN 4.6 g/dL (6.4-8.2)
[2018-10-03 07:11] LABS: BASOPHILS # (AUTO) 0.06 x10^3/uL (0-0.1); BASOPHILS % (AUTO) 1 % (0-1); EOSINOPHILS # (AUTO) 0.61 x10^3/uL (0-0.4); EOSINOPHILS % (AUTO) 5 % (1-7); LYMPHOCYTES # (AUTO) 1.65 x10^3/uL (1-3.4); LYMPHOCYTES % (AUTO) 14 % (22-44); MD SCAN; MONOCYTES # (AUTO) 0.81 x10^3/uL (0.2-0.8); MONOCYTES % (AUTO) 7 % (2-9); NEUTROPHILS # (AUTO) 8.48 x10^3/uL (1.8-6.8); NEUTROPHILS % (AUTO) 73 % (42-75)
[2018-10-03 07:34] VITALS: BP 120/65
[2018-10-03] MEDS: SODIUM CHLORIDE FLUSH 10ML SYR IVF SCH ×2 (10:20→20:41)
[2018-10-03] MEDS: IRON SUCROSE COMPLEX 100MG/5ML IV SCH (10:20)
[2018-10-03] MEDS: FERROUS SULFATE 325 MG TABLET PO SCH (10:21)
[2018-10-03] MEDS: ATORVASTATIN 40 MG TABLET PO SCH (10:21)
[2018-10-03] MEDS: HYDROcodone/APAP 10/325 MG TABLET PO SCH ×3 (10:21→20:53)
[2018-10-03] MEDS: GABAPENTIN 100 MG CAPSULE PO SCH ×2 (10:21→20:53)
[2018-10-03] MEDS: DOCUSATE 100 MG CAPSULE PO SCH ×2 (10:21→20:52)
[2018-10-03] MEDS: OMEGA-3/FISH OIL CAPSULE PO SCH (10:21)
[2018-10-03] MEDS: ZINC SULFATE 220 MG CAPSULE PO SCH (10:22)
[2018-10-03] MEDS: ASCORBIC ACID 500 MG TABLET PO SCH (10:22)
[2018-10-03] MEDS: SENNOSIDES 8.6 MG TABLET PO SCH ×2 (10:22→20:53)
[2018-10-03] MEDS ORDERED: CALCIUM GLUCONATE 9.2 MEQ in SODIUM CHLORIDE 0.9% 100 ML IV ONE (13:30)
[2018-10-03 13:31] VITALS: BP 109/60
[2018-10-03 20:11] VITALS: BP 123/60
[2018-10-03] MEDS: LORazepam 0.5MG TABLET PO SCH (20:53)
[2018-10-03 23:50] VITALS: BP 114/51
[2018-10-04] MEDS: PANTOPROZOLE 40MG TABLET PO SCH (05:54)
[2018-10-04] MEDS: DICLOXACILLIN 250 MG CAPSULE PO SCH (05:54)
[2018-10-04] MEDS: SODIUM CHLORIDE 0.45% 1,000 ML IV SCH ×2 (05:54→17:14)
[2018-10-04] MEDS: LEVOTHYROXINE 50 MCG TABLET PO SCH (05:54)
[2018-10-04 06:20] LABS: BASOPHILS # (AUTO) 0.11 x10^3/uL (0-0.1); BASOPHILS % (AUTO) 1 % (0-1); EOSINOPHILS # (AUTO) 0.72 x10^3/uL (0-0.4); EOSINOPHILS % (AUTO) 6 % (1-7); LYMPHOCYTES # (AUTO) 1.87 x10^3/uL (1-3.4); LYMPHOCYTES % (AUTO) 16 % (22-44); MD NO; MEAN CORPUSCULAR HEMOGLOBIN 29.7 pg (27.5-34.5); MEAN CORPUSCULAR HGB CONC 33.3 g/dL (33.2-36.2); MEAN PLATELET VOLUME 7.7 fL (7.4-10.4); MONOCYTES # (AUTO) 0.92 x10^3/uL (0.2-0.8); MONOCYTES % (AUTO) 8 % (2-9); NEUTROPHILS # (AUTO) 7.84 x10^3/uL (1.8-6.8); NEUTROPHILS % (AUTO) 68 % (42-75); PLATELET COUNT 257 x10^3/uL (130-400); RED CELL DISTRIBUTION WIDTH 16.9 % (9.4-14.8)
[2018-10-04 06:31] LABS: CHLORIDE 114 mmol/L (98-107)
[2018-10-04 06:36] LABS: ALBUMIN 1.8 g/dL (3.4-5.0); ALKALINE PHOSPHATASE 64 U/L (45-117); ANION GAP 8 mmol/L (5-15); BILIRUBIN,TOTAL 0.3 mg/dL (0.2-1.0); CREATININE 1.07 mg/dL (0.7-1.3); TOTAL PROTEIN 4.8 g/dL (6.4-8.2)
[2018-10-04 06:37] LABS: ALANINE AMINOTRANSFERASE < 6 U/L (12-78)
[2018-10-04] MEDS: INSULIN LISPRO 100 UNITS/ML, PEN SQ-INSULIN SCH ×4 (07:00→23:04)
[2018-10-04 08:14] VITALS: BP 141/72
[2018-10-04] MEDS: ZINC SULFATE 220 MG CAPSULE PO SCH (10:11)
[2018-10-04] MEDS: SENNOSIDES 8.6 MG TABLET PO SCH ×2 (10:11→23:03)
[2018-10-04] MEDS: ASCORBIC ACID 500 MG TABLET PO SCH (10:11)
[2018-10-04] MEDS: SODIUM CHLORIDE FLUSH 10ML SYR IVF SCH ×2 (10:11→23:04)
[2018-10-04] MEDS: FERROUS SULFATE 325 MG TABLET PO SCH (10:12)
[2018-10-04] MEDS: OMEGA-3/FISH OIL CAPSULE PO SCH (10:12)
[2018-10-04] MEDS: GABAPENTIN 100 MG CAPSULE PO SCH ×2 (10:12→23:03)
[2018-10-04] MEDS: DOCUSATE 100 MG CAPSULE PO SCH ×2 (10:12→23:03)
[2018-10-04] MEDS: ATORVASTATIN 40 MG TABLET PO SCH (10:12)
[2018-10-04] MEDS: HYDROcodone/APAP 10/325 MG TABLET PO SCH ×3 (10:12→23:03)
[2018-10-04] MEDS ORDERED: VISIPAQUE 320MG/ML, 50ML BOTTLE ONE (13:00)
[2018-10-04 13:54] VITALS: BP 137/70
[2018-10-04 20:09] VITALS: BP 144/69
[2018-10-04] MEDS: LORazepam 0.5MG TABLET PO SCH (23:03)
[2018-10-04] MEDS: SULFAMETH./TRIMETHOPRIM DS 800MG/160MG TABLET PO SCH (23:03)
[2018-10-05 02:58] VITALS: BP 148/70
[2018-10-05] MEDS: LEVOTHYROXINE 50 MCG TABLET PO SCH (04:28)
[2018-10-05] MEDS: SODIUM CHLORIDE 0.45% 1,000 ML IV SCH ×3 (04:29→22:54)
[2018-10-05 05:23] LABS: BASOPHILS # (AUTO) 0.19 x10^3/uL (0-0.1); BASOPHILS % (AUTO) 2 % (0-1); EOSINOPHILS # (AUTO) 0.61 x10^3/uL (0-0.4); EOSINOPHILS % (AUTO) 6 % (1-7); LYMPHOCYTES # (AUTO) 2.32 x10^3/uL (1-3.4); LYMPHOCYTES % (AUTO) 23 % (22-44); MD NO; MEAN CORPUSCULAR HEMOGLOBIN 29.3 pg (27.5-34.5); MEAN CORPUSCULAR HGB CONC 33.1 g/dL (33.2-36.2); MEAN CORPUSCULAR VOLUME 88.6 fL (81-97); MEAN PLATELET VOLUME 7.6 fL (7.4-10.4); MONOCYTES # (AUTO) 0.85 x10^3/uL (0.2-0.8); MONOCYTES % (AUTO) 9 % (2-9); NEUTROPHILS # (AUTO) 6.01 x10^3/uL (1.8-6.8); NEUTROPHILS % (AUTO) 60 % (42-75); PLATELET COUNT 299 x10^3/uL (130-400); RED BLOOD COUNT 2.96 x10^6/uL (4.38-5.82); RED CELL DISTRIBUTION WIDTH 17.4 % (9.4-14.8)
[2018-10-05 05:33] LABS: ALANINE AMINOTRANSFERASE 7 U/L (12-78); ALBUMIN 1.8 g/dL (3.4-5.0); ANION GAP 6 mmol/L (5-15); CALCIUM 6.7 mg/dL (8.5-10.1); CHLORIDE 113 mmol/L (98-107)
[2018-10-05 05:36] LABS: ALKALINE PHOSPHATASE 63 U/L (45-117); BILIRUBIN,TOTAL 0.4 mg/dL (0.2-1.0); CREATININE 0.89 mg/dL (0.7-1.3)
[2018-10-05] MEDS: INSULIN LISPRO 100 UNITS/ML, PEN SQ-INSULIN SCH ×4 (07:00→21:00)
[2018-10-05 07:25] VITALS: BP 142/74
[2018-10-05] MEDS: SODIUM CHLORIDE FLUSH 10ML SYR IVF SCH ×2 (09:00→22:51)
[2018-10-05] MEDS: HYDROcodone/APAP 10/325 MG TABLET PO SCH ×3 (10:14→21:00)
[2018-10-05] MEDS: DOCUSATE 100 MG CAPSULE PO SCH ×2 (10:14→22:52)
[2018-10-05] MEDS: ATORVASTATIN 40 MG TABLET PO SCH (10:14)
[2018-10-05] MEDS: PANTOPROZOLE 40MG TABLET PO SCH (10:14)
[2018-10-05] MEDS: SENNOSIDES 8.6 MG TABLET PO SCH ×2 (10:14→22:52)
[2018-10-05] MEDS: OMEGA-3/FISH OIL CAPSULE PO SCH (10:14)
[2018-10-05] MEDS: ASCORBIC ACID 500 MG TABLET PO SCH (10:14)
[2018-10-05] MEDS: FERROUS SULFATE 325 MG TABLET PO SCH (10:14)
[2018-10-05] MEDS: ZINC SULFATE 220 MG CAPSULE PO SCH (10:15)
[2018-10-05] MEDS: GABAPENTIN 100 MG CAPSULE PO SCH ×2 (10:15→22:52)
[2018-10-05] MEDS: SULFAMETH./TRIMETHOPRIM DS 800MG/160MG TABLET PO SCH (10:15)
[2018-10-05 14:09] VITALS: BP 139/79
[2018-10-05 19:34] VITALS: BP 140/75
[2018-10-05] MEDS: LORazepam 0.5MG TABLET PO SCH (22:52)
[2018-10-06 02:59] VITALS: BP 163/75
[2018-10-06] MEDS: LEVOTHYROXINE 50 MCG TABLET PO SCH (05:50)
[2018-10-06 06:28] LABS: BASOPHILS # (AUTO) 0.39 x10^3/uL (0-0.1); BASOPHILS % (AUTO) 3 % (0-1); EOSINOPHILS # (AUTO) 0.53 x10^3/uL (0-0.4); EOSINOPHILS % (AUTO) 5 % (1-7); LYMPHOCYTES # (AUTO) 1.85 x10^3/uL (1-3.4); LYMPHOCYTES % (AUTO) 16 % (22-44); MD NO; MEAN CORPUSCULAR HEMOGLOBIN 29.9 pg (27.5-34.5); MEAN CORPUSCULAR HGB CONC 34.4 g/dL (33.2-36.2); MEAN CORPUSCULAR VOLUME 86.9 fL (81-97); MEAN PLATELET VOLUME 7.4 fL (7.4-10.4); MONOCYTES # (AUTO) 0.73 x10^3/uL (0.2-0.8); MONOCYTES % (AUTO) 6 % (2-9); NEUTROPHILS % (AUTO) 70 % (42-75); PLATELET COUNT 298 x10^3/uL (130-400); RED BLOOD COUNT 3.04 x10^6/uL (4.38-5.82); RED CELL DISTRIBUTION WIDTH 17.4 % (9.4-14.8)
[2018-10-06 06:41] LABS: ALANINE AMINOTRANSFERASE 7 U/L (12-78); ALBUMIN 1.9 g/dL (3.4-5.0); ANION GAP 7 mmol/L (5-15); CALCIUM 6.7 mg/dL (8.5-10.1); CHLORIDE 113 mmol/L (98-107); CREATININE 0.89 mg/dL (0.7-1.3)
[2018-10-06 06:43] LABS: ALKALINE PHOSPHATASE 61 U/L (45-117); BILIRUBIN,TOTAL 0.3 mg/dL (0.2-1.0); TOTAL PROTEIN 5.2 g/dL (6.4-8.2)
[2018-10-06] MEDS: INSULIN LISPRO 100 UNITS/ML, PEN SQ-INSULIN SCH ×4 (07:00→21:00)
[2018-10-06 07:14] VITALS: BP 159/77
[2018-10-06] MEDS: PANTOPROZOLE 40MG TABLET PO SCH (07:30)
[2018-10-06] MEDS ORDERED: LIDOCAINE-MPF 1%, 5ML ONE ×2 (08:01)
[2018-10-06] MEDS ORDERED: NALOXONE 1 MG/ML, 2ML ONE (08:30)
[2018-10-06] MEDS ORDERED: FENTANYL PF 100 MCG/2ML ONE (08:30)
[2018-10-06] MEDS ORDERED: MIDAZOLAM 1 MG/ML, 5ML ONE (08:30)
[2018-10-06] MEDS ORDERED: FLUMAZENIL 0.1 MG/1 ML, 5ML ONE (08:30)
[2018-10-06] MEDS: ATORVASTATIN 40 MG TABLET PO SCH (09:00)
[2018-10-06] MEDS: SENNOSIDES 8.6 MG TABLET PO SCH ×2 (09:00→21:21)
[2018-10-06] MEDS: DOCUSATE 100 MG CAPSULE PO SCH ×2 (09:00→21:21)
[2018-10-06] MEDS: OMEGA-3/FISH OIL CAPSULE PO SCH (09:00)
[2018-10-06] MEDS: SODIUM CHLORIDE FLUSH 10ML SYR IVF SCH ×2 (09:00→21:00)
[2018-10-06] MEDS: FERROUS SULFATE 325 MG TABLET PO SCH (09:00)
[2018-10-06] MEDS: ASCORBIC ACID 500 MG TABLET PO SCH (09:00)
[2018-10-06] MEDS: ZINC SULFATE 220 MG CAPSULE PO SCH (09:00)
[2018-10-06] MEDS: SODIUM CHLORIDE 0.45% 1,000 ML IV SCH ×2 (11:03→21:21)
[2018-10-06 11:12] VITALS: BP 153/67
[2018-10-06] MEDS: GABAPENTIN 100 MG CAPSULE PO SCH ×2 (13:26→21:22)
[2018-10-06] MEDS: HYDROcodone/APAP 10/325 MG TABLET PO SCH ×3 (13:26→21:21)
[2018-10-06] MEDS: SULFAMETH./TRIMETHOPRIM DS 800MG/160MG TABLET PO SCH (13:26)
[2018-10-06 19:24] VITALS: BP 150/63
[2018-10-06] MEDS: LORazepam 0.5MG TABLET PO SCH (21:22)
[2018-10-07 01:11] VITALS: BP 145/61
[2018-10-07] MEDS: LEVOTHYROXINE 50 MCG TABLET PO SCH (05:42)
[2018-10-07 06:26] LABS: BASOPHILS # (AUTO) 0.04 x10^3/uL (0-0.1); BASOPHILS % (AUTO) 0 % (0-1); EOSINOPHILS # (AUTO) 0.75 x10^3/uL (0-0.4); EOSINOPHILS % (AUTO) 6 % (1-7); LYMPHOCYTES # (AUTO) 1.89 x10^3/uL (1-3.4); LYMPHOCYTES % (AUTO) 15 % (22-44); MD NO; MEAN CORPUSCULAR HEMOGLOBIN 30.4 pg (27.5-34.5); MEAN CORPUSCULAR HGB CONC 34.1 g/dL (33.2-36.2); MEAN PLATELET VOLUME 7.6 fL (7.4-10.4); MONOCYTES # (AUTO) 0.89 x10^3/uL (0.2-0.8); MONOCYTES % (AUTO) 7 % (2-9); NEUTROPHILS # (AUTO) 8.97 x10^3/uL (1.8-6.8); NEUTROPHILS % (AUTO) 72 % (42-75); PLATELET COUNT 327 x10^3/uL (130-400); RED BLOOD COUNT 3.01 x10^6/uL (4.38-5.82)
[2018-10-07 06:28] LABS: ALANINE AMINOTRANSFERASE 9 U/L (12-78); ALBUMIN 1.9 g/dL (3.4-5.0); ANION GAP 6 mmol/L (5-15); CALCIUM 6.5 mg/dL (8.5-10.1); CHLORIDE 111 mmol/L (98-107); CREATININE 0.95 mg/dL (0.7-1.3)
[2018-10-07 06:29] LABS: ALKALINE PHOSPHATASE 66 U/L (45-117); BILIRUBIN,TOTAL 0.3 mg/dL (0.2-1.0); TOTAL PROTEIN 5.3 g/dL (6.4-8.2)
[2018-10-07] MEDS: SODIUM CHLORIDE 0.45% 1,000 ML IV SCH ×2 (07:00→16:11)
[2018-10-07] MEDS: INSULIN LISPRO 100 UNITS/ML, PEN SQ-INSULIN SCH ×3 (07:00→16:00)
[2018-10-07 07:18] VITALS: BP 140/65
[2018-10-07] MEDS ORDERED: CALCIUM GLUCONATE 9.2 MEQ in SODIUM CHLORIDE 0.9% 100 ML IV SCH (09:00)
[2018-10-07] MEDS: SODIUM CHLORIDE FLUSH 10ML SYR IVF SCH (09:00)
[2018-10-07] MEDS: ATORVASTATIN 40 MG TABLET PO SCH (09:22)
[2018-10-07] MEDS: SENNOSIDES 8.6 MG TABLET PO SCH (09:22)
[2018-10-07] MEDS: GABAPENTIN 100 MG CAPSULE PO SCH (09:22)
[2018-10-07] MEDS: SULFAMETH./TRIMETHOPRIM DS 800MG/160MG TABLET PO SCH (09:23)
[2018-10-07] MEDS: ASCORBIC ACID 500 MG TABLET PO SCH (09:23)
[2018-10-07] MEDS: HYDROcodone/APAP 10/325 MG TABLET PO SCH ×2 (09:23→16:11)
[2018-10-07] MEDS: PANTOPROZOLE 40MG TABLET PO SCH (09:23)
[2018-10-07] MEDS: FERROUS SULFATE 325 MG TABLET PO SCH (09:23)
[2018-10-07] MEDS: OMEGA-3/FISH OIL CAPSULE PO SCH (09:23)
[2018-10-07] MEDS: ZINC SULFATE 220 MG CAPSULE PO SCH (09:23)
[2018-10-07] MEDS: DOCUSATE 100 MG CAPSULE PO SCH (09:23)
[2018-10-07] MEDS ORDERED: CALCIUM CARBONATE 500 MG TABLET PO SCH (11:30)
[2018-10-07] MEDS ORDERED: CALCIUM GLUCONATE 9.2 MEQ in SODIUM CHLORIDE 0.9% 100 ML IV ONE (11:30)
[2018-10-07 13:52] VITALS: BP 143/69
[2018-10-07] MEDS ORDERED: LIDO700A20 TD (16:39)
[2018-10-07] MEDS ORDERED: SULF-169 PO (16:39)
[2018-10-07] MEDS ORDERED: SULFAMETH./TRIMETHOPRIM DS 800MG/160MG TABLET PO SCH (21:00)
== END 2018-10-07 18:25 | disposition home health service (06) | DRG 987 ==
LOC: ED 12:43 → EDIP 13:26 → 4EST 16:18
PROVIDERS: ADMIT Internal Medicine; ATTEND Internal Medicine
PROC: 02HV33Z Insertion of Infusion Device into Superior Vena Cava, Percutaneous Approach (ICD-10-PCS; 2018-09-29)
PROC: B5181ZA Fluoroscopy of Superior Vena Cava using Low Osmolar Contrast, Guidance (ICD-10-PCS; 2018-09-29)
PROC: B548ZZA Ultrasonography of Superior Vena Cava, Guidance (ICD-10-PCS; 2018-09-29)
PROC: 0T9430Z Drainage of Left Kidney Pelvis with Drainage Device, Percutaneous Approach (ICD-10-PCS; 2018-09-30)
PROC: 30233N1 Transfusion of Nonautologous Red Blood Cells into Peripheral Vein, Percutaneous Approach (ICD-10-PCS; 2018-09-30)
PROC: 0T5B8ZZ Destruction of Bladder, Via Natural or Artificial Opening Endoscopic (ICD-10-PCS; 2018-10-01)
PROC: 0TCB8ZZ Extirpation of Matter from Bladder, Via Natural or Artificial Opening Endoscopic (ICD-10-PCS; 2018-10-01)
PROC: 0T2BX0Z Change Drainage Device in Bladder, External Approach (ICD-10-PCS; 2018-10-01)
PROC: 0T777DZ Dilation of Left Ureter with Intraluminal Device, Via Natural or Artificial Opening (ICD-10-PCS; principal; 2018-10-01 08:30)
PROC: BT121ZZ Fluoroscopy of Left Kidney using Low Osmolar Contrast (ICD-10-PCS; 2018-10-04)
PROC: 0T9430Z Drainage of Left Kidney Pelvis with Drainage Device, Percutaneous Approach (ICD-10-PCS; 2018-10-06)
DX: D62 Acute posthemorrhagic anemia (principal); E43 Unspecified severe protein-calorie malnutrition; N17.9 Acute kidney failure, unspecified; G82.20 Paraplegia, unspecified; N39.0 Urinary tract infection, site not specified; N13.6 Pyonephrosis; R31.0 Gross hematuria; E03.9 Hypothyroidism, unspecified; E11.22 Type 2 diabetes mellitus with diabetic chronic kidney disease; Z66 Do not resuscitate; E11.40 Type 2 diabetes mellitus with diabetic neuropathy, unspecified; E55.9 Vitamin D deficiency, unspecified; E78.5 Hyperlipidemia, unspecified; E83.51 Hypocalcemia; E87.5 Hyperkalemia; G89.29 Other chronic pain; I12.9 Hypertensive chronic kidney disease with stage 1 through stage 4 chronic kidney disease, or unspecified chronic kidney disease; K21.9 Gastro-esophageal reflux disease without esophagitis; L89.90 Pressure ulcer of unspecified site, unspecified stage; N18.2 Chronic kidney disease, stage 2 (mild); N25.0 Renal osteodystrophy; N31.9 Neuromuscular dysfunction of bladder, unspecified; N40.0 Benign prostatic hyperplasia without lower urinary tract symptoms; Z68.30 Body mass index [BMI] 30.0-30.9, adult; Z79.02 Long term (current) use of antithrombotics/antiplatelets; Z79.4 Long term (current) use of insulin; Z79.82 Long term (current) use of aspirin; Z83.3 Family history of diabetes mellitus; Z85.828 Personal history of other malignant neoplasm of skin; Z87.440 Personal history of urinary (tract) infections; Z87.442 Personal history of urinary calculi; Z87.891 Personal history of nicotine dependence; Z90.5 Acquired absence of kidney; Z93.59 Other cystostomy status
CPT/HCPCS: 36415; 36573; 50431; 50432; 50693; 74176; 76770; 80048; 80053; 80069; 81001; 82040; 82306; 82330; 82728; 82962; 83036; 83540; 83550; 83735; 83970; 84100; 84132; 84439; 84443; 85014; 85018; 85025; 85610; 85651; 85730; 86850; 86900; 86923; 87086; 93005; 96361; 96374; 99156; 99157; C1894; G0378; J0610; J0690; J1756; J1815; J2250; J2405; J2704; J3010; J3490; J7070; Q9967; C1729; C1751; C1769; C2625; J2310; J7030; P9016

== ENCOUNTER 2018-11-18 09:49 | Inpatient (IN) | payer MEDICARE, MEDICAID ==
[~2018-11-18] VITALS: Ht 175.3 cm; Wt 83.4 kg
[~2018-11-18 09:49] MED LIST changes: +ATOR20TA86 PO; +CARV6.2512 PO; +CLOP75TA PO; +LIDO700A20 TD; +OMEG1CAP24 PO; +SULF-169 PO
[2018-11-18] MEDS ORDERED: SODIUM CHLORIDE FLUSH 10ML SYR IVF ONE (10:00)
[2018-11-18] MEDS ORDERED: SODIUM CHLORIDE 0.9% 1,000ML IVBOLUS ONE ×2 (10:00→11:00)
--- NOTE | 2018-11-18 10:06 | NUR ---
PT BIB [facility] FROM HOME C/O GENERAL MALAISE AND DECREASED APPETITE X A FEW DAYS. DENIES PAIN, PT WAS DX'D WITH UTI AND WAS SUPPOSED TO START AN ABX "CEPHEREXIN" PER EMS BUT ACCORDING TO EMS REPORT FAMILY HASN'T STARTED ABX D/T "NEEDING EDUCATION ON HOW TO GIVE IT". PT HAS INDWELLING CATHETER WITH CARLOS BLOOD NOTED, PER PT HE HAS HAD THIS FOR "MONTHS". TAX COLLECTOR ON PATIENT. BP 82/37 AT THIS TIME, IV START BY EMS, IVF ADMINISTERED PER MD ORDER, A+OX4. NAD NOTED. CALL LIGHT WITHIN REACH.
[2018-11-18] MEDS ORDERED: CLOP75TA PO (10:25)
[2018-11-18] MEDS ORDERED: HYDR-3307 PO (10:26)
[2018-11-18] MEDS ORDERED: IRON15TA3 PO (10:27)
[2018-11-18] MEDS ORDERED: PROBIOTIC GUMMIE (10:28)
[2018-11-18] MEDS ORDERED: PLEASE ENTER HEIGHT AND WEIGHT MC SCH (10:30)
[2018-11-18] MEDS ORDERED: CARV6.252 PO (10:30)
[2018-11-18] MEDS ORDERED: CEFU250T66 PO (10:32)
--- NOTE | 2018-11-18 10:32 | NUR ---
LAB AT BEDSIDE.
--- NOTE | 2018-11-18 10:45 | NUR ---
NEW ORDERS FOR ABX. LAB UNSUCCESSFUL, AWAITING BLOOD CULTURES AND LAB DRAW PRIOR TO ABX ADMINISTRATION.
--- NOTE | 2018-11-18 10:59 | NUR ---
LAB AT BEDSIDE.
[2018-11-18] MEDS ORDERED: PIPERACILLIN/TAZO/PMX 3.375GM 50 ML IVPB ONE (11:00)
[2018-11-18] MEDS ORDERED: SODIUM CHLORIDE 0.9% 1,000 ML IV ONE (11:00)
[2018-11-18 11:08] LABS: MEAN CORPUSCULAR HEMOGLOBIN 28.9 pg (27.5-34.5); MEAN CORPUSCULAR VOLUME 87.6 fL (81-97); MEAN PLATELET VOLUME 6.8 fL (7.4-10.4); PLATELET COUNT 433 x10^3/uL (130-400); RED BLOOD COUNT 2.97 x10^6/uL (4.38-5.82); RED CELL DISTRIBUTION WIDTH 17.1 % (9.4-14.8)
[2018-11-18 11:14] LABS: MICROSCOPIC INDICATED
[2018-11-18 11:19] LABS: INTERNATIONAL NORMALIZED RATIO 0.99 (0.93-1.1); PROTHROMBIN TIME 10.4 Seconds (9.6-11.5)
[2018-11-18 11:19] LABS: CULTURE INDICATED? YES
[2018-11-18 11:21] LABS: ALBUMIN 2.1 g/dL (3.4-5.0); ANION GAP 16 mmol/L (5-15); CALCIUM 7.1 mg/dL (8.5-10.1); CHLORIDE 109 mmol/L (98-107)
[2018-11-18 11:25] LABS: ALANINE AMINOTRANSFERASE 13 U/L (12-78); ALKALINE PHOSPHATASE 101 U/L (45-117); BILIRUBIN,TOTAL 0.2 mg/dL (0.2-1.0); CREATININE 5.62 mg/dL (0.7-1.3); TOTAL PROTEIN 6.5 g/dL (6.4-8.2); TROPONIN I < 0.015 ng/mL (0.000-0.045)
--- NOTE | 2018-11-18 11:36 | NUR ---
BP 75/31-MD AWARE, STARTING SECOND IV FOR 2ND IVF BAG. PRESSURE BAG PUT ON FIRST IVF, STILL ADMINISTERING. LABS DRAWN, BLOOD CULTURES X 2 COMPLETED BY LAB.
[2018-11-18 11:45] LABS: BASOPHILS # (AUTO) 0.05 x10^3/uL (0-0.1); BASOPHILS % (AUTO) 0 % (0-1); EOSINOPHILS # (AUTO) 0.45 x10^3/uL (0-0.4); EOSINOPHILS % (AUTO) 3 % (1-7); LYMPHOCYTES # (AUTO) 1.71 x10^3/uL (1-3.4); LYMPHOCYTES % (AUTO) 11 % (22-44); MD SCAN; MONOCYTES # (AUTO) 0.19 x10^3/uL (0.2-0.8); MONOCYTES % (AUTO) 1 % (2-9); NEUTROPHILS # (AUTO) 12.73 x10^3/uL (1.8-6.8); NEUTROPHILS % (AUTO) 84 % (42-75)
[2018-11-18] MEDS ORDERED: PIPERACILLIN/TAZO/PMX 3.375GM 50 ML ONE (11:49)
--- NOTE | 2018-11-18 12:13 | NUR ---
BLOOD CULTURES DRAWN, FIRST IV INFILTRATED, NEW IV STARTED. 2ND IVF AND ABX ADMINISTERED PER ORDER. BLOOD CULTURES DRAWN PRIOR TO ABX ADMINISTERED. PATIENT SITTING IN GURNEY WATCHING TV, FAMILY AT BEDSIDE. FAMILY/PATIENT UPDATED ON POC. VS UPDATED IN CHART. NO ADDITIONAL NEEDS AT THIS TIME. BP 86/5*, AWARE. WILL CONTINUE TO MONITOR BP. ALL RESULTS BACK, CHART UP FOR RECHECK. AWAITING FURTHER ORDERS. Addendum: 11/18/18 at 1250 by ANGELICA CORRECTION, B/P 86/29.
[2018-11-18] MEDS ORDERED: CEFTRIAXONE PMX 1GM/50ML 50 ML IV ONE (12:30)
--- NOTE | 2018-11-18 12:39 | NUR ---
PATIENT BP 90/16, MD AWARE. PATIENT TRANSFERRED TO TR.
--- NOTE | 2018-11-18 12:43 | NUR ---
PT MOVED TO T4 AT THIS TIME. RECEIVED BEDSIDE REPORT AND CARE FROM FANI JACKSON. BP 95/30, HR 98, DISCUSSED BP AND NOREPINEPHRINE DRIP WITH AT BEDSIDE, TO HOLD NOREPINEPHRINE AT THIS TIME PER MD. PT A&OX4. RESTING IN POSITION OF COMFORT. DENIES ANY PAIN. INMAN IN PLACE FROM ARRIVAL, DRAINING PROPERLY WITH BLOOD TINGE URINE, DR. BADILLO AWARE. NO NEW ORDERS RECEIVED. R ARM INFILTRATED IV SITE ASSESSED, IV WAS PREVIOUSLY REMOVED BY FANI JACKSON. RFA/AC WITH SWELLING, WARM COMPRESS IN PLACE PER MD. FALL PRECUATIONS IN PLACE. SIDE RAILS UPX2. A&OX4. FAMILY AT BEDSIDE. Addendum: 11/18/18 at 1317 by CARLOS CLARIFICATION: SUPRAPUBIC CATHETER IN PLACE AT TIME OF ARRIVAL AND DRAINGING PROPERLY.
--- NOTE | 2018-11-18 12:51 | NUR ---
DR. BADILLO AT BEDSIDE DISCUSSING POC WITH PT AND FAMILY. PT TO BE ADMITTED, ALL AGREE TO POC.
--- NOTE | 2018-11-18 12:51 | NUR ---
BEDSIDE REPORT TO RENETTA NATH. PATIENT ON REEL BLADE BENDER FURNACE TENDER AND VS UPDATED IN CHART. FAMILY/PATIENT UPDATED ON POC.
[2018-11-18] MEDS ORDERED: NOREPINEPHRINE 4 MG in SODIUM CHLORIDE 0.9% 246 ML IV PRN (13:00)
--- NOTE | 2018-11-18 13:01 | NUR ---
MANUAL BP'S TAKING ON BILATERAL ARMS PER DR. BADILLO. LEFT ARM 90/48, RIGHT ARM 92/42, DISCUSSED WITH DR. BADILLO AWARE, CONTINUE TO HOLD LEVOPHED AT THIS TIME. REMAINS SR AT THIS TIME.
[2018-11-18] MEDS ORDERED: CEFTRIAXONE PMX 1GM/50ML 50 ML ONE (13:12)
--- NOTE | 2018-11-18 13:12 | NUR ---
BEDSIDE REPORT AND CARE TO JOHANNA JACKSON. DR. BADILLO AT BEDSIDE.
--- NOTE | 2018-11-18 14:08 | NUR ---
Dr. Coburn at bedside discussing options and plan of care with patient and his family. Report called to RENETTA Alcala.
[2018-11-18] MEDS ORDERED: ONDANSETRON ODT 4 MG PO PRN (14:30)
[2018-11-18] MEDS ORDERED: SODIUM BICARBONATE 8.4% 100 MEQ in DEXTROSE 5% 1,000 ML IV SCH (14:30)
[2018-11-18] MEDS ORDERED: PHARMACY MAY ADJ FOR RENAL FX MC PRN (14:30)
[2018-11-18] MEDS ORDERED: ACETAMINOPHEN 325 MG TABLET PO PRN (14:30)
[2018-11-18] MEDS ORDERED: ONDANSETRON 2MG/ML, 2ML IVPush PRN (14:30)
[2018-11-18] MEDS ORDERED: DOCUSATE 100 MG CAPSULE PO PRN (14:30)
[2018-11-18 15:26] LABS: THYROID STIMULATING HORMONE 1.55 mIU/L (0.358-3.740)
[2018-11-18] MEDS ORDERED: MAGNESIUM SULFATE PMX 2GM/50ML 50 ML IV ONE (16:00)
[2018-11-18] MEDS ORDERED: GUAIFENESIN 200 MG TABLET PO PRN (16:00)
[2018-11-18] MEDS: INSULIN LISPRO 100 UNITS/ML, PEN SQ-INSULIN SCH ×2 (16:00→20:20)
[2018-11-18] MEDS: CHOLECALCIFEROL 1,000 UNIT TABLET PO SCH (16:31)
[2018-11-18] MEDS: HYDROcodone/APAP 10/325 MG TABLET PO SCH ×2 (16:31→22:00)
[2018-11-18 18:48] VITALS: BP 90/38
[2018-11-18] MEDS: PIPERACILLIN/TAZO/PMX 2.25GM 50 ML IV SCH (20:14)
[2018-11-18 21:37] VITALS: BP 104/40
[2018-11-18] MEDS: LORazepam 0.5MG TABLET PO SCH (22:00)
[2018-11-18] MEDS: SENNOSIDES 8.6 MG TABLET PO SCH (22:00)
[2018-11-18] MEDS: GABAPENTIN 100 MG CAPSULE PO SCH (22:00)
[2018-11-19] MEDS: PIPERACILLIN/TAZO/PMX 2.25GM 50 ML IV SCH ×3 (03:42→20:33)
[2018-11-19 03:52] VITALS: BP 102/42
[2018-11-19 04:47] LABS: ANION GAP 13 mmol/L (5-15); CALCIUM 6.4 mg/dL (8.5-10.1); CHLORIDE 109 mmol/L (98-107); CREATININE 5.75 mg/dL (0.7-1.3)
[2018-11-19 05:14] LABS: BASOPHILS # (AUTO) 0.09 x10^3/uL (0-0.1); BASOPHILS % (AUTO) 1 % (0-1); EOSINOPHILS # (AUTO) 0.65 x10^3/uL (0-0.4); EOSINOPHILS % (AUTO) 5 % (1-7); LYMPHOCYTES # (AUTO) 2.21 x10^3/uL (1-3.4); LYMPHOCYTES % (AUTO) 17 % (22-44); MD NO; MEAN CORPUSCULAR HEMOGLOBIN 28.8 pg (27.5-34.5); MEAN CORPUSCULAR HGB CONC 32.8 g/dL (33.2-36.2); MEAN CORPUSCULAR VOLUME 87.7 fL (81-97); MEAN PLATELET VOLUME 7.1 fL (7.4-10.4); MONOCYTES # (AUTO) 0.82 x10^3/uL (0.2-0.8); MONOCYTES % (AUTO) 6 % (2-9); NEUTROPHILS # (AUTO) 9.11 x10^3/uL (1.8-6.8); NEUTROPHILS % (AUTO) 71 % (42-75); PLATELET COUNT 344 x10^3/uL (130-400); RED BLOOD COUNT 2.74 x10^6/uL (4.38-5.82); RED CELL DISTRIBUTION WIDTH 16.9 % (9.4-14.8)
[2018-11-19] MEDS: INSULIN LISPRO 100 UNITS/ML, PEN SQ-INSULIN SCH ×4 (07:00→21:00)
[2018-11-19 08:00] VITALS: BP 102/58
[2018-11-19] MEDS: SODIUM BICARBONATE 8.4% 150 MEQ in DEXTROSE 5% 1,000 ML IV SCH ×2 (08:55→20:33)
[2018-11-19] MEDS: LEVOTHYROXINE 50 MCG TABLET PO SCH (09:00)
[2018-11-19] MEDS: ZINC SULFATE 220 MG CAPSULE PO SCH (09:00)
[2018-11-19] MEDS: GABAPENTIN 100 MG CAPSULE PO SCH (09:00)
[2018-11-19] MEDS: HYDROcodone/APAP 10/325 MG TABLET PO SCH ×3 (09:00→20:33)
[2018-11-19] MEDS: SENNOSIDES 8.6 MG TABLET PO SCH ×2 (09:00→20:33)
[2018-11-19] MEDS: ASCORBIC ACID 500 MG TABLET PO SCH (09:00)
[2018-11-19] MEDS: OMEGA-3/FISH OIL CAPSULE PO SCH (09:00)
[2018-11-19] MEDS: PANTOPRAZOLE GRAN. PKT 40 MG PO SCH (09:00)
[2018-11-19 16:17] VITALS: BP 100/57
[2018-11-19 19:51] VITALS: BP 90/34
[2018-11-19] MEDS: LORazepam 0.5MG TABLET PO SCH (20:33)
[2018-11-20 02:02] VITALS: BP 93/41
[2018-11-20] MEDS: PIPERACILLIN/TAZO/PMX 2.25GM 50 ML IV SCH ×3 (04:24→20:23)
[2018-11-20 06:08] LABS: ALBUMIN 1.6 g/dL (3.4-5.0); ANION GAP 14 mmol/L (5-15); CALCIUM 6.1 mg/dL (8.5-10.1); CHLORIDE 105 mmol/L (98-107); MEAN CORPUSCULAR HEMOGLOBIN 28.2 pg (27.5-34.5); MEAN CORPUSCULAR HGB CONC 32.4 g/dL (33.2-36.2); MEAN CORPUSCULAR VOLUME 87.1 fL (81-97); MEAN PLATELET VOLUME 6.9 fL (7.4-10.4); PLATELET COUNT 343 x10^3/uL (130-400); RED BLOOD COUNT 2.63 x10^6/uL (4.38-5.82)
[2018-11-20 06:12] LABS: % IRON SATURATION 11 % (20-55); ALANINE AMINOTRANSFERASE 10 U/L (12-78); ALKALINE PHOSPHATASE 76 U/L (45-117); CREATININE 6.14 mg/dL (0.7-1.3); IRON LEVEL 27 mcg/dL (65-175); TOTAL IRON BINDING CAPACITY 236 mcg/dL (250-450); TOTAL PROTEIN 5.6 g/dL (6.4-8.2)
[2018-11-20 06:26] LABS: BASOPHILS # (AUTO) 0.19 x10^3/uL (0-0.1); BASOPHILS % (AUTO) 2 % (0-1); EOSINOPHILS # (AUTO) 0.42 x10^3/uL (0-0.4); EOSINOPHILS % (AUTO) 5 % (1-7); LYMPHOCYTES # (AUTO) 1.82 x10^3/uL (1-3.4); LYMPHOCYTES % (AUTO) 19 % (22-44); MD SCAN; MONOCYTES # (AUTO) 0.74 x10^3/uL (0.2-0.8); MONOCYTES % (AUTO) 8 % (2-9); NEUTROPHILS # (AUTO) 6.21 x10^3/uL (1.8-6.8); NEUTROPHILS % (AUTO) 66 % (42-75)
[2018-11-20 06:30] LABS: BILIRUBIN,TOTAL < 0.1 mg/dL (0.2-1.0)
[2018-11-20] MEDS: INSULIN LISPRO 100 UNITS/ML, PEN SQ-INSULIN SCH ×4 (07:00→21:00)
[2018-11-20 07:41] VITALS: BP 117/49
[2018-11-20 07:47] LABS: CREATININE,URINE RANDOM 86.6 mg/dL
[2018-11-20] MEDS: OMEGA-3/FISH OIL CAPSULE PO SCH (09:00)
[2018-11-20] MEDS: IRON SUCROSE COMPLEX 100MG/5ML IV SCH (09:37)
[2018-11-20] MEDS: LEVOTHYROXINE 50 MCG TABLET PO SCH (09:39)
[2018-11-20] MEDS: SENNOSIDES 8.6 MG TABLET PO SCH ×2 (09:39→20:23)
[2018-11-20] MEDS: HYDROcodone/APAP 10/325 MG TABLET PO SCH ×3 (09:39→20:23)
[2018-11-20] MEDS: ZINC SULFATE 220 MG CAPSULE PO SCH (09:39)
[2018-11-20] MEDS: ASCORBIC ACID 500 MG TABLET PO SCH (09:40)
[2018-11-20] MEDS: PANTOPRAZOLE GRAN. PKT 40 MG PO SCH (09:40)
[2018-11-20 13:24] VITALS: BP 106/49
[2018-11-20] MEDS: LORazepam 0.5MG TABLET PO SCH (20:23)
[2018-11-20 21:06] VITALS: BP 111/54
[2018-11-21] VITALS (7 sets, daily range): BP systolic 97–126; BP diastolic 43–78
[2018-11-21] MEDS: PIPERACILLIN/TAZO/PMX 2.25GM 50 ML IV SCH ×3 (04:20→20:08)
[2018-11-21 05:14] LABS: ALBUMIN 1.7 g/dL (3.4-5.0); ANION GAP 10 mmol/L (5-15); CHLORIDE 104 mmol/L (98-107)
[2018-11-21 05:18] LABS: ALANINE AMINOTRANSFERASE 11 U/L (12-78); ALKALINE PHOSPHATASE 76 U/L (45-117); BILIRUBIN,TOTAL 0.2 mg/dL (0.2-1.0); CREATININE 4.88 mg/dL (0.7-1.3); MEAN CORPUSCULAR HEMOGLOBIN 28.5 pg (27.5-34.5); MEAN CORPUSCULAR HGB CONC 32.9 g/dL (33.2-36.2); MEAN CORPUSCULAR VOLUME 86.4 fL (81-97); MEAN PLATELET VOLUME 7.2 fL (7.4-10.4); PLATELET COUNT 314 x10^3/uL (130-400); RED BLOOD COUNT 2.23 x10^6/uL (4.38-5.82); RED CELL DISTRIBUTION WIDTH 17.1 % (9.4-14.8); TOTAL PROTEIN 5.7 g/dL (6.4-8.2)
[2018-11-21 05:30] LABS: CALCIUM 5.9 mg/dL (8.5-10.1)
[2018-11-21 05:59] LABS: BASOPHILS # (AUTO) 0.09 x10^3/uL (0-0.1); BASOPHILS % (AUTO) 1 % (0-1); EOSINOPHILS # (AUTO) 0.67 x10^3/uL (0-0.4); EOSINOPHILS % (AUTO) 6 % (1-7); LYMPHOCYTES % (AUTO) 21 % (22-44); MD SCAN; MONOCYTES # (AUTO) 0.99 x10^3/uL (0.2-0.8); MONOCYTES % (AUTO) 9 % (2-9); NEUTROPHILS # (AUTO) 6.93 x10^3/uL (1.8-6.8); NEUTROPHILS % (AUTO) 63 % (42-75)
[2018-11-21] MEDS ORDERED: CALCIUM GLUCONATE 9.2 MEQ in SODIUM CHLORIDE 0.9% 100 ML IV ONE (06:00)
[2018-11-21] MEDS: INSULIN LISPRO 100 UNITS/ML, PEN SQ-INSULIN SCH ×4 (07:00→20:08)
[2018-11-21] MEDS: IRON SUCROSE COMPLEX 100MG/5ML IV SCH (08:28)
[2018-11-21] MEDS: SENNOSIDES 8.6 MG TABLET PO SCH ×2 (08:30→20:08)
[2018-11-21] MEDS: ZINC SULFATE 220 MG CAPSULE PO SCH (08:31)
[2018-11-21] MEDS: HYDROcodone/APAP 10/325 MG TABLET PO SCH ×3 (08:31→20:08)
[2018-11-21] MEDS: OMEGA-3/FISH OIL CAPSULE PO SCH (08:31)
[2018-11-21] MEDS: PANTOPRAZOLE GRAN. PKT 40 MG PO SCH (08:31)
[2018-11-21] MEDS: ASCORBIC ACID 500 MG TABLET PO SCH (08:31)
[2018-11-21] MEDS: LEVOTHYROXINE 50 MCG TABLET PO SCH (08:31)
[2018-11-21] MEDS: CHOLECALCIFEROL 1,000 UNIT TABLET PO SCH (14:52)
[2018-11-21] MEDS: LORazepam 0.5MG TABLET PO SCH (20:08)
[2018-11-22 00:24] VITALS: BP 112/55
[2018-11-22] MEDS: PIPERACILLIN/TAZO/PMX 2.25GM 50 ML IV SCH ×3 (04:01→20:08)
[2018-11-22] MEDS: INSULIN LISPRO 100 UNITS/ML, PEN SQ-INSULIN SCH ×4 (07:00→21:00)
[2018-11-22 07:08] VITALS: BP 116/58
[2018-11-22] MEDS: SENNOSIDES 8.6 MG TABLET PO SCH ×2 (13:35→20:08)
[2018-11-22] MEDS: PANTOPRAZOLE GRAN. PKT 40 MG PO SCH (13:35)
[2018-11-22] MEDS: OMEGA-3/FISH OIL CAPSULE PO SCH (13:35)
[2018-11-22] MEDS: ASCORBIC ACID 500 MG TABLET PO SCH (13:36)
[2018-11-22] MEDS: HYDROcodone/APAP 10/325 MG TABLET PO SCH ×3 (13:36→20:08)
[2018-11-22] MEDS: LEVOTHYROXINE 50 MCG TABLET PO SCH (13:36)
[2018-11-22] MEDS: ZINC SULFATE 220 MG CAPSULE PO SCH (13:36)
[2018-11-22] MEDS: IRON SUCROSE COMPLEX 100MG/5ML IV SCH (13:36)
[2018-11-22 15:35] VITALS: BP 122/55
[2018-11-22 16:18] LABS: MICROSCOPIC INDICATED
[2018-11-22 16:26] LABS: CULTURE INDICATED? YES
[2018-11-22 19:01] VITALS: BP 100/52
[2018-11-22] MEDS: LORazepam 0.5MG TABLET PO SCH (20:08)
[2018-11-23 00:14] VITALS: BP 123/55
[2018-11-23] MEDS: PIPERACILLIN/TAZO/PMX 2.25GM 50 ML IV SCH ×3 (03:46→21:25)
[2018-11-23 06:34] LABS: BASOPHILS # (AUTO) 0.04 x10^3/uL (0-0.1); BASOPHILS % (AUTO) 0 % (0-1); EOSINOPHILS # (AUTO) 0.53 x10^3/uL (0-0.4); EOSINOPHILS % (AUTO) 4 % (1-7); LYMPHOCYTES # (AUTO) 2.32 x10^3/uL (1-3.4); LYMPHOCYTES % (AUTO) 18 % (22-44); MD NO; MEAN CORPUSCULAR HEMOGLOBIN 28.8 pg (27.5-34.5); MEAN CORPUSCULAR VOLUME 87.3 fL (81-97); MEAN PLATELET VOLUME 7.3 fL (7.4-10.4); MONOCYTES # (AUTO) 1.04 x10^3/uL (0.2-0.8); MONOCYTES % (AUTO) 8 % (2-9); NEUTROPHILS # (AUTO) 8.77 x10^3/uL (1.8-6.8); NEUTROPHILS % (AUTO) 69 % (42-75); PLATELET COUNT 123 x10^3/uL (130-400); RED BLOOD COUNT 2.83 x10^6/uL (4.38-5.82)
[2018-11-23 06:42] LABS: ANION GAP 8 mmol/L (5-15); CALCIUM 6.5 mg/dL (8.5-10.1); CHLORIDE 100 mmol/L (98-107)
[2018-11-23] MEDS: INSULIN LISPRO 100 UNITS/ML, PEN SQ-INSULIN SCH ×4 (07:00→21:00)
[2018-11-23] MEDS ORDERED: POTASSIUM CHLORIDE 20 MEQ TAB.ER.PRT PO ONE (08:00)
[2018-11-23] MEDS ORDERED: MAGNESIUM SULFATE PMX 2GM/50ML 50 ML IV ONE (08:30)
[2018-11-23 09:30] VITALS: BP 125/49
[2018-11-23] MEDS: LEVOTHYROXINE 50 MCG TABLET PO SCH (09:38)
[2018-11-23] MEDS: HYDROcodone/APAP 10/325 MG TABLET PO SCH ×3 (09:39→21:25)
[2018-11-23] MEDS: ZINC SULFATE 220 MG CAPSULE PO SCH (09:39)
[2018-11-23] MEDS: SENNOSIDES 8.6 MG TABLET PO SCH ×2 (09:39→21:00)
[2018-11-23] MEDS: PANTOPRAZOLE GRAN. PKT 40 MG PO SCH (09:39)
[2018-11-23] MEDS: OMEGA-3/FISH OIL CAPSULE PO SCH (09:39)
[2018-11-23] MEDS: ASCORBIC ACID 500 MG TABLET PO SCH (09:39)
[2018-11-23] MEDS: IRON SUCROSE COMPLEX 100MG/5ML IV SCH (09:40)
[2018-11-23 13:56] VITALS: BP 110/53
[2018-11-23] MEDS: CHOLECALCIFEROL 1,000 UNIT TABLET PO SCH (14:43)
[2018-11-23 19:05] VITALS: BP 126/46
[2018-11-23] MEDS: LORazepam 0.5MG TABLET PO SCH (21:25)
[2018-11-24 00:03] VITALS: BP 107/47
[2018-11-24] MEDS: INSULIN LISPRO 100 UNITS/ML, PEN SQ-INSULIN SCH ×4 (07:45→20:15)
[2018-11-24 08:24] LABS: ALBUMIN 1.9 g/dL (3.4-5.0); ANION GAP 10 mmol/L (5-15); CHLORIDE 100 mmol/L (98-107)
[2018-11-24 08:25] LABS: CREATININE 3.13 mg/dL (0.7-1.3)
[2018-11-24 08:33] VITALS: BP 113/54
[2018-11-24] MEDS: ZINC SULFATE 220 MG CAPSULE PO SCH (08:35)
[2018-11-24] MEDS: OMEGA-3/FISH OIL CAPSULE PO SCH (08:35)
[2018-11-24] MEDS: SENNOSIDES 8.6 MG TABLET PO SCH ×2 (08:36→20:15)
[2018-11-24] MEDS: IRON SUCROSE COMPLEX 100MG/5ML IV SCH (08:36)
[2018-11-24] MEDS: LEVOTHYROXINE 50 MCG TABLET PO SCH (08:36)
[2018-11-24] MEDS: HYDROcodone/APAP 10/325 MG TABLET PO SCH ×3 (08:36→20:14)
[2018-11-24] MEDS: PANTOPRAZOLE GRAN. PKT 40 MG PO SCH (08:36)
[2018-11-24] MEDS: ASCORBIC ACID 500 MG TABLET PO SCH (08:36)
[2018-11-24] MEDS: PIPERACILLIN/TAZO/PMX 2.25GM 50 ML IV SCH ×2 (08:36→20:14)
[2018-11-24 09:00] LABS: BASOPHILS # (AUTO) 0.06 x10^3/uL (0-0.1); BASOPHILS % (AUTO) 1 % (0-1); EOSINOPHILS # (AUTO) 0.62 x10^3/uL (0-0.4); EOSINOPHILS % (AUTO) 5 % (1-7); LYMPHOCYTES # (AUTO) 2.32 x10^3/uL (1-3.4); LYMPHOCYTES % (AUTO) 19 % (22-44); MD NO; MEAN CORPUSCULAR HEMOGLOBIN 29.3 pg (27.5-34.5); MEAN CORPUSCULAR HGB CONC 33.4 g/dL (33.2-36.2); MEAN CORPUSCULAR VOLUME 87.9 fL (81-97); MEAN PLATELET VOLUME 7.4 fL (7.4-10.4); MONOCYTES # (AUTO) 0.87 x10^3/uL (0.2-0.8); MONOCYTES % (AUTO) 7 % (2-9); NEUTROPHILS # (AUTO) 8.37 x10^3/uL (1.8-6.8); NEUTROPHILS % (AUTO) 68 % (42-75); PLATELET COUNT 148 x10^3/uL (130-400); RED BLOOD COUNT 2.79 x10^6/uL (4.38-5.82); RED CELL DISTRIBUTION WIDTH 16.4 % (9.4-14.8)
[2018-11-24 14:31] VITALS: BP 144/65
[2018-11-24] MEDS: FLUCONAZOLE 100MG/50ML 100 MG in BAG 1 EACH IV SCH (14:31)
[2018-11-24] MEDS: LORazepam 0.5MG TABLET PO SCH (20:14)
[2018-11-24 20:19] VITALS: BP 132/64
[2018-11-25 00:03] VITALS: BP 134/65
[2018-11-25 06:31] LABS: ALBUMIN 1.8 g/dL (3.4-5.0); ANION GAP 8 mmol/L (5-15); CALCIUM 6.7 mg/dL (8.5-10.1); CHLORIDE 105 mmol/L (98-107)
[2018-11-25] MEDS: INSULIN LISPRO 100 UNITS/ML, PEN SQ-INSULIN SCH ×4 (07:00→21:00)
[2018-11-25] MEDS ORDERED: POTASSIUM CHLORIDE 40 MEQ in SODIUM CHLORIDE 0.9% 500 ML IV ONE (07:30)
[2018-11-25 08:45] LABS: BASOPHILS # (AUTO) 0.04 x10^3/uL (0-0.1); BASOPHILS % (AUTO) 0 % (0-1); EOSINOPHILS # (AUTO) 0.65 x10^3/uL (0-0.4); EOSINOPHILS % (AUTO) 6 % (1-7); LYMPHOCYTES # (AUTO) 2.17 x10^3/uL (1-3.4); LYMPHOCYTES % (AUTO) 19 % (22-44); MD NO; MEAN CORPUSCULAR HEMOGLOBIN 29.2 pg (27.5-34.5); MEAN CORPUSCULAR HGB CONC 33.4 g/dL (33.2-36.2); MEAN CORPUSCULAR VOLUME 87.6 fL (81-97); MEAN PLATELET VOLUME 7.8 fL (7.4-10.4); MONOCYTES # (AUTO) 0.86 x10^3/uL (0.2-0.8); MONOCYTES % (AUTO) 7 % (2-9); NEUTROPHILS # (AUTO) 7.85 x10^3/uL (1.8-6.8); NEUTROPHILS % (AUTO) 68 % (42-75); PLATELET COUNT 118 x10^3/uL (130-400); RED BLOOD COUNT 2.73 x10^6/uL (4.38-5.82); RED CELL DISTRIBUTION WIDTH 16.1 % (9.4-14.8)
[2018-11-25] MEDS: PIPERACILLIN/TAZO/PMX 2.25GM 50 ML IV SCH ×2 (10:58→23:14)
[2018-11-25] MEDS: POTASSIUM CHLORIDE 20 MEQ TAB.ER.PRT PO SCH ×2 (10:59→22:18)
[2018-11-25] MEDS: PANTOPRAZOLE GRAN. PKT 40 MG PO SCH (10:59)
[2018-11-25] MEDS: LEVOTHYROXINE 50 MCG TABLET PO SCH (10:59)
[2018-11-25] MEDS: SENNOSIDES 8.6 MG TABLET PO SCH ×2 (10:59→22:19)
[2018-11-25] MEDS: ZINC SULFATE 220 MG CAPSULE PO SCH (10:59)
[2018-11-25] MEDS: D5%-0.45% NACL+KCL 10MEQ 1,000 ML IV SCH ×2 (10:59→22:19)
[2018-11-25 11:00] VITALS: BP 156/69
[2018-11-25] MEDS: OMEGA-3/FISH OIL CAPSULE PO SCH (11:00)
[2018-11-25] MEDS: HYDROcodone/APAP 10/325 MG TABLET PO SCH ×3 (11:01→22:19)
[2018-11-25] MEDS: ASCORBIC ACID 500 MG TABLET PO SCH (11:24)
[2018-11-25 13:29] LABS: ANION GAP 8 mmol/L (5-15); CHLORIDE 106 mmol/L (98-107); CREATININE 2.02 mg/dL (0.7-1.3)
[2018-11-25] MEDS: FLUCONAZOLE 100MG/50ML 100 MG in BAG 1 EACH IV SCH (13:37)
[2018-11-25] MEDS ORDERED: FENTANYL PF 100 MCG/2ML ONE ×2 (14:21→16:19)
[2018-11-25] MEDS ORDERED: OMNIPAQUE 350 MG/ML, 50 ML BOTTLE IV ONE (15:32)
[2018-11-25] MEDS ORDERED: NEOSTIGMINE 1 MG/ML, 10ML ONE (15:34)
[2018-11-25] MEDS ORDERED: CEFAZOLIN 1,000 MG ONE (15:34)
[2018-11-25] MEDS ORDERED: ROCURONIUM 10MG/ML,5ML ONE (15:34)
[2018-11-25] MEDS ORDERED: DEXAMETHASONE 4 MG/ML, 1ML ONE (15:34)
[2018-11-25] MEDS ORDERED: SUCCINYLCHOLINE 20 MG/ML, 10ML ONE (15:34)
[2018-11-25] MEDS ORDERED: PROPOFOL 10 MG/ML, 20ML ONE (15:34)
[2018-11-25] MEDS ORDERED: GLYCOPYRROLATE 0.2MG/1ML, 5ML ONE (15:34)
[2018-11-25] MEDS ORDERED: ONDANSETRON 2MG/ML, 2ML ONE (15:34)
[2018-11-25] MEDS ORDERED: HYDROmorphone 2 MG/ML, 1ML ONE (16:20)
[2018-11-25] MEDS ORDERED: HALOPERIDOL 5 MG/ML IV PRN (16:30)
[2018-11-25] MEDS ORDERED: HYDROmorphone 2 MG/ML, 1ML IVPush PRN (16:30)
[2018-11-25] MEDS ORDERED: LABETALOL 5MG/ML, 20ML IV PRN (16:30)
[2018-11-25] MEDS ORDERED: METOPROLOL 1 MG/ML, 5ML IV PRN (16:30)
[2018-11-25] MEDS ORDERED: hydrALAzine 20 MG/ML, 1ML IV PRN (16:30)
[2018-11-25] MEDS ORDERED: OXYcodone 5 MG/5 ML ORAL.SOL UDC PO PRN (16:30)
[2018-11-25] MEDS ORDERED: FENTANYL PF 100 MCG/2ML IV PRN (16:30)
[2018-11-25] MEDS ORDERED: MEPERIDINE/PF 25MG/0.5ML IVPush PRN (16:30)
[2018-11-25] MEDS ORDERED: PROMETHAZINE 25 MG/ML, 1ML IV PRN (16:30)
[2018-11-25] MEDS ORDERED: PROCHLORPERAZINE 5 MG/ML, 2ML IV PRN (16:30)
[2018-11-25] MEDS ORDERED: hydrALAzine 20 MG/ML, 1ML ONE (17:47)
[2018-11-25] MEDS ORDERED: METOPROLOL 1 MG/ML, 5ML ONE (17:55)
[2018-11-25] MEDS ORDERED: METOPROLOL 1 MG/ML, 5ML IVPush ONE ×2 (18:30→22:00)
[2018-11-25 19:05] VITALS: BP_SYST 136; BP_SYST 73; BP_DIAS 66
[2018-11-25] MEDS: LORazepam 0.5MG TABLET PO SCH (22:19)
[2018-11-25] MEDS: CHOLECALCIFEROL 1,000 UNIT TABLET PO SCH (22:19)
[2018-11-25 23:42] VITALS: BP 91/47
[2018-11-26 01:47] VITALS: BP 114/57
[2018-11-26 05:39] LABS: ALBUMIN 1.7 g/dL (3.4-5.0); ANION GAP 6 mmol/L (5-15); CALCIUM 6.7 mg/dL (8.5-10.1); CHLORIDE 109 mmol/L (98-107)
[2018-11-26 05:43] LABS: ALANINE AMINOTRANSFERASE 8 U/L (12-78); ALKALINE PHOSPHATASE 68 U/L (45-117); BILIRUBIN,TOTAL 0.3 mg/dL (0.2-1.0); CREATININE 2.13 mg/dL (0.7-1.3); TOTAL PROTEIN 5.7 g/dL (6.4-8.2)
[2018-11-26 05:46] LABS: MEAN CORPUSCULAR HEMOGLOBIN 28.3 pg (27.5-34.5); MEAN CORPUSCULAR HGB CONC 31.5 g/dL (33.2-36.2); MEAN PLATELET VOLUME 7.2 fL (7.4-10.4); PLATELET COUNT 159 x10^3/uL (130-400); RED BLOOD COUNT 2.74 x10^6/uL (4.38-5.82); RED CELL DISTRIBUTION WIDTH 16.7 % (9.4-14.8)
[2018-11-26 06:07] LABS: MD YES
[2018-11-26 06:11] LABS: <PLATELET ESTIMATE> ADEQUATE; <PLT MORPHOLOGY> NORMAL PLT MORPH; ANISOCYTOSIS 1+; BANDS%(MANUAL) 9 % (0-7); LYMPH#(MANUAL) 0.36 x10^3/uL (1-3.4); LYMPHS% (MANUAL) 1 % (22-44); MONOS#(MANUAL) 0.36 x10^3/uL (0.3-2.7); MONOS% (MANUAL) 1 % (2-9); SEG#(MANUAL) 31.68 x10^3/uL (1.8-6.8); SEGS% (MANUAL) 89 % (42-75)
[2018-11-26] MEDS: INSULIN LISPRO 100 UNITS/ML, PEN SQ-INSULIN SCH ×4 (07:00→20:40)
[2018-11-26 07:43] VITALS: BP 126/66
[2018-11-26] MEDS: SENNOSIDES 8.6 MG TABLET PO SCH ×2 (09:37→21:00)
[2018-11-26] MEDS: OMEGA-3/FISH OIL CAPSULE PO SCH (09:37)
[2018-11-26] MEDS: ASCORBIC ACID 500 MG TABLET PO SCH (09:37)
[2018-11-26] MEDS: LEVOTHYROXINE 50 MCG TABLET PO SCH (09:37)
[2018-11-26] MEDS: ZINC SULFATE 220 MG CAPSULE PO SCH (09:37)
[2018-11-26] MEDS: PANTOPRAZOLE GRAN. PKT 40 MG PO SCH (09:37)
[2018-11-26] MEDS: HYDROcodone/APAP 10/325 MG TABLET PO SCH ×3 (11:00→21:00)
[2018-11-26] MEDS: FERROUS SULFATE 325 MG TABLET PO SCH (11:00)
[2018-11-26] MEDS: PIPERACILLIN/TAZO/PMX 2.25GM 50 ML IV SCH (12:11)
[2018-11-26 13:58] LABS: HCT (SEDRATE) 25.3 % (39.2-51.8)
[2018-11-26] MEDS: MICAFUNGIN 100 MG in SODIUM CHLORIDE 0.9% 100 ML IV SCH (14:22)
[2018-11-26 14:30] VITALS: BP 105/49
[2018-11-26 20:33] VITALS: BP 120/53
[2018-11-26] MEDS: LORazepam 0.5MG TABLET PO SCH (21:00)
[2018-11-27 01:30] VITALS: BP 119/57
[2018-11-27 05:46] LABS: MEAN CORPUSCULAR HEMOGLOBIN 29.3 pg (27.5-34.5); MEAN CORPUSCULAR VOLUME 91.4 fL (81-97); MEAN PLATELET VOLUME 7.8 fL (7.4-10.4); PLATELET COUNT 163 x10^3/uL (130-400); RED CELL DISTRIBUTION WIDTH 17.2 % (9.4-14.8)
[2018-11-27 05:57] LABS: ALBUMIN 1.7 g/dL (3.4-5.0); ANION GAP 7 mmol/L (5-15); CALCIUM 6.7 mg/dL (8.5-10.1); CHLORIDE 110 mmol/L (98-107)
[2018-11-27 06:01] LABS: MD YES
[2018-11-27 06:03] LABS: ALANINE AMINOTRANSFERASE 9 U/L (12-78); ALKALINE PHOSPHATASE 71 U/L (45-117); BILIRUBIN,TOTAL 0.2 mg/dL (0.2-1.0); CREATININE 1.93 mg/dL (0.7-1.3); TOTAL PROTEIN 5.6 g/dL (6.4-8.2)
[2018-11-27 06:04] LABS: BAND#(MANUAL) 0.53 x10^3/uL; BANDS%(MANUAL) 3 % (0-7); EOS#(MANUAL) 0.53 x10^3/uL (0.0-0.4); EOS% (MANUAL) 3 % (1-7); LYMPHS% (MANUAL) 20 % (22-44); MONOS#(MANUAL) 0.35 x10^3/uL (0.3-2.7); MONOS% (MANUAL) 2 % (2-9); SEGS% (MANUAL) 72 % (42-75)
[2018-11-27 06:05] LABS: <PLATELET ESTIMATE> ADEQUATE; <PLT MORPHOLOGY> NORMAL PLT MORPH; ANISOCYTOSIS 1+
[2018-11-27 08:09] VITALS: BP 123/56
[2018-11-27] MEDS: INSULIN LISPRO 100 UNITS/ML, PEN SQ-INSULIN SCH ×4 (08:29→20:57)
[2018-11-27] MEDS: FERROUS SULFATE 325 MG TABLET PO SCH (08:29)
[2018-11-27] MEDS: ZINC SULFATE 220 MG CAPSULE PO SCH (08:29)
[2018-11-27] MEDS: LEVOTHYROXINE 50 MCG TABLET PO SCH (08:29)
[2018-11-27] MEDS: SENNOSIDES 8.6 MG TABLET PO SCH ×2 (08:29→20:56)
[2018-11-27] MEDS: ASCORBIC ACID 500 MG TABLET PO SCH (08:29)
[2018-11-27] MEDS: OMEGA-3/FISH OIL CAPSULE PO SCH (08:29)
[2018-11-27] MEDS: PANTOPRAZOLE GRAN. PKT 40 MG PO SCH (08:29)
[2018-11-27] MEDS: HYDROcodone/APAP 10/325 MG TABLET PO SCH ×3 (08:29→20:56)
[2018-11-27] MEDS: PIPERACILLIN/TAZO/PMX 2.25GM 50 ML IV SCH ×3 (11:37→23:39)
[2018-11-27 12:30] VITALS: BP 128/60
[2018-11-27] MEDS: MICAFUNGIN 100 MG in SODIUM CHLORIDE 0.9% 100 ML IV SCH (12:35)
[2018-11-27 19:59] VITALS: BP 152/67
[2018-11-27] MEDS: LORazepam 0.5MG TABLET PO SCH (20:56)
[2018-11-28 01:58] VITALS: BP 151/65
[2018-11-28 05:22] LABS: MEAN CORPUSCULAR HEMOGLOBIN 28.5 pg (27.5-34.5); MEAN CORPUSCULAR HGB CONC 31.3 g/dL (33.2-36.2); MEAN CORPUSCULAR VOLUME 91.2 fL (81-97); MEAN PLATELET VOLUME 7.5 fL (7.4-10.4); PLATELET COUNT 181 x10^3/uL (130-400); RED BLOOD COUNT 2.55 x10^6/uL (4.38-5.82); RED CELL DISTRIBUTION WIDTH 17.3 % (9.4-14.8)
[2018-11-28 05:24] LABS: ALANINE AMINOTRANSFERASE 8 U/L (12-78); ALBUMIN 1.8 g/dL (3.4-5.0); ANION GAP 7 mmol/L (5-15); CALCIUM 6.6 mg/dL (8.5-10.1); CHLORIDE 109 mmol/L (98-107); CREATININE 1.53 mg/dL (0.7-1.3)
[2018-11-28 05:27] LABS: ALKALINE PHOSPHATASE 65 U/L (45-117); BILIRUBIN,TOTAL 0.3 mg/dL (0.2-1.0); TOTAL PROTEIN 5.4 g/dL (6.4-8.2)
[2018-11-28 05:47] LABS: MD YES
[2018-11-28 05:50] LABS: ANISOCYTOSIS 1+; BAND#(MANUAL) 0.26 x10^3/uL; BANDS%(MANUAL) 2 % (0-7); EOS% (MANUAL) 7 % (1-7); LYMPH#(MANUAL) 1.66 x10^3/uL (1-3.4); LYMPHS% (MANUAL) 13 % (22-44); MONOS#(MANUAL) 0.77 x10^3/uL (0.3-2.7); MONOS% (MANUAL) 6 % (2-9); POLYCHROMASIA 1+; SEG#(MANUAL) 9.22 x10^3/uL (1.8-6.8); SEGS% (MANUAL) 72 % (42-75)
[2018-11-28 05:51] LABS: <PLATELET ESTIMATE> ADEQUATE; <PLT MORPHOLOGY> NORMAL PLT MORPH
[2018-11-28 06:45] VITALS: BP 159/69
[2018-11-28] MEDS: INSULIN LISPRO 100 UNITS/ML, PEN SQ-INSULIN SCH ×4 (07:00→20:35)
[2018-11-28] MEDS: FERROUS SULFATE 325 MG TABLET PO SCH (08:00)
[2018-11-28] MEDS: SENNOSIDES 8.6 MG TABLET PO SCH ×2 (08:52→20:35)
[2018-11-28] MEDS: HYDROcodone/APAP 10/325 MG TABLET PO SCH ×3 (08:52→20:35)
[2018-11-28] MEDS: OMEGA-3/FISH OIL CAPSULE PO SCH (08:52)
[2018-11-28] MEDS: LEVOTHYROXINE 50 MCG TABLET PO SCH (08:52)
[2018-11-28] MEDS: ASCORBIC ACID 500 MG TABLET PO SCH (08:52)
[2018-11-28] MEDS: ZINC SULFATE 220 MG CAPSULE PO SCH (08:52)
[2018-11-28] MEDS: PANTOPRAZOLE GRAN. PKT 40 MG PO SCH (08:52)
[2018-11-28] MEDS: PIPERACILLIN/TAZO/PMX 2.25GM 50 ML IV SCH ×2 (11:38→23:41)
[2018-11-28 12:15] VITALS: BP 148/67
[2018-11-28] MEDS: MICAFUNGIN 100 MG in SODIUM CHLORIDE 0.9% 100 ML IV SCH (12:40)
[2018-11-28] MEDS: CHOLECALCIFEROL 1,000 UNIT TABLET PO SCH (14:13)
[2018-11-28 18:36] VITALS: BP 158/61
[2018-11-28] MEDS: LORazepam 0.5MG TABLET PO SCH (20:35)
[2018-11-29 00:16] VITALS: BP 145/62
[2018-11-29] MEDS: LEVOTHYROXINE 50 MCG TABLET PO SCH (05:03)
[2018-11-29 06:58] VITALS: BP 154/68
[2018-11-29] MEDS: INSULIN LISPRO 100 UNITS/ML, PEN SQ-INSULIN SCH ×4 (07:00→20:36)
[2018-11-29 07:04] LABS: ALBUMIN 1.9 g/dL (3.4-5.0); ANION GAP 10 mmol/L (5-15); CHLORIDE 108 mmol/L (98-107)
[2018-11-29 07:06] LABS: CREATININE 1.47 mg/dL (0.7-1.3)
[2018-11-29 07:09] LABS: BASOPHILS # (AUTO) 0.08 x10^3/uL (0-0.1); BASOPHILS % (AUTO) 1 % (0-1); EOSINOPHILS # (AUTO) 0.73 x10^3/uL (0-0.4); EOSINOPHILS % (AUTO) 5 % (1-7); LYMPHOCYTES % (AUTO) 17 % (22-44); MD NO; MEAN CORPUSCULAR HEMOGLOBIN 29.1 pg (27.5-34.5); MEAN CORPUSCULAR HGB CONC 31.5 g/dL (33.2-36.2); MEAN CORPUSCULAR VOLUME 92.5 fL (81-97); MEAN PLATELET VOLUME 7.9 fL (7.4-10.4); MONOCYTES # (AUTO) 0.64 x10^3/uL (0.2-0.8); MONOCYTES % (AUTO) 5 % (2-9); NEUTROPHILS # (AUTO) 10.15 x10^3/uL (1.8-6.8); NEUTROPHILS % (AUTO) 73 % (42-75); PLATELET COUNT 243 x10^3/uL (130-400); RED BLOOD COUNT 2.81 x10^6/uL (4.38-5.82); RED CELL DISTRIBUTION WIDTH 17.3 % (9.4-14.8)
[2018-11-29] MEDS: ZINC SULFATE 220 MG CAPSULE PO SCH (09:52)
[2018-11-29] MEDS: FERROUS SULFATE 325 MG TABLET PO SCH (09:52)
[2018-11-29] MEDS: SENNOSIDES 8.6 MG TABLET PO SCH ×2 (09:52→20:36)
[2018-11-29] MEDS: HYDROcodone/APAP 10/325 MG TABLET PO SCH ×3 (09:52→20:36)
[2018-11-29] MEDS: OMEGA-3/FISH OIL CAPSULE PO SCH (09:52)
[2018-11-29] MEDS: PANTOPRAZOLE GRAN. PKT 40 MG PO SCH (09:52)
[2018-11-29] MEDS: ASCORBIC ACID 500 MG TABLET PO SCH (09:53)
[2018-11-29] MEDS: PIPERACILLIN/TAZO/PMX 2.25GM 50 ML IV SCH ×2 (12:08→17:54)
[2018-11-29 12:25] VITALS: BP 156/58
[2018-11-29] MEDS: MICAFUNGIN 100 MG in SODIUM CHLORIDE 0.9% 100 ML IV SCH (13:22)
[2018-11-29 19:29] VITALS: BP 136/54
[2018-11-29] MEDS: LORazepam 0.5MG TABLET PO SCH (20:36)
[2018-11-30 00:03] VITALS: BP 139/64
[2018-11-30] MEDS: PIPERACILLIN/TAZO/PMX 2.25GM 50 ML IV SCH ×4 (00:06→18:24)
[2018-11-30 05:52] LABS: BASOPHILS # (AUTO) 0.04 x10^3/uL (0-0.1); BASOPHILS % (AUTO) 0 % (0-1); EOSINOPHILS # (AUTO) 0.69 x10^3/uL (0-0.4); EOSINOPHILS % (AUTO) 6 % (1-7); LYMPHOCYTES # (AUTO) 2.92 x10^3/uL (1-3.4); LYMPHOCYTES % (AUTO) 25 % (22-44); MD NO; MEAN CORPUSCULAR HEMOGLOBIN 29.3 pg (27.5-34.5); MEAN CORPUSCULAR VOLUME 91.8 fL (81-97); MEAN PLATELET VOLUME 7.9 fL (7.4-10.4); MONOCYTES # (AUTO) 0.78 x10^3/uL (0.2-0.8); MONOCYTES % (AUTO) 7 % (2-9); NEUTROPHILS # (AUTO) 7.25 x10^3/uL (1.8-6.8); NEUTROPHILS % (AUTO) 62 % (42-75); PLATELET COUNT 236 x10^3/uL (130-400); RED BLOOD COUNT 2.84 x10^6/uL (4.38-5.82); RED CELL DISTRIBUTION WIDTH 17.8 % (9.4-14.8)
[2018-11-30 06:02] LABS: CHLORIDE 109 mmol/L (98-107)
[2018-11-30 06:07] LABS: ALANINE AMINOTRANSFERASE 9 U/L (12-78); ALKALINE PHOSPHATASE 67 U/L (45-117); ANION GAP 9 mmol/L (5-15); BILIRUBIN,TOTAL 0.3 mg/dL (0.2-1.0); CREATININE 1.38 mg/dL (0.7-1.3); TOTAL PROTEIN 5.9 g/dL (6.4-8.2)
[2018-11-30] MEDS: LEVOTHYROXINE 50 MCG TABLET PO SCH (06:12)
[2018-11-30 06:54] VITALS: BP 153/63
[2018-11-30] MEDS: INSULIN LISPRO 100 UNITS/ML, PEN SQ-INSULIN SCH ×4 (07:00→21:00)
[2018-11-30] MEDS ORDERED: DEXTROSE 4 GM TAB.CHEW PO PRN (07:30)
[2018-11-30] MEDS ORDERED: DEXTROSE 50%, 50ML SYRINGE IVPush PRN (07:30)
[2018-11-30] MEDS ORDERED: GLUCAGON 1 MG IM PRN (07:30)
[2018-11-30] MEDS: FERROUS SULFATE 325 MG TABLET PO SCH (08:55)
[2018-11-30] MEDS: POTASSIUM CHLORIDE 20 MEQ TAB.ER.PRT PO SCH (08:55)
[2018-11-30] MEDS: ASCORBIC ACID 500 MG TABLET PO SCH (08:56)
[2018-11-30] MEDS: HYDROcodone/APAP 10/325 MG TABLET PO SCH ×3 (08:56→21:19)
[2018-11-30] MEDS: PANTOPRAZOLE GRAN. PKT 40 MG PO SCH (08:56)
[2018-11-30] MEDS: OMEGA-3/FISH OIL CAPSULE PO SCH (08:56)
[2018-11-30] MEDS: ZINC SULFATE 220 MG CAPSULE PO SCH (08:56)
[2018-11-30] MEDS: SENNOSIDES 8.6 MG TABLET PO SCH ×2 (08:56→21:00)
[2018-11-30] MEDS: SODIUM CHLORIDE FLUSH 10ML SYR IVF SCH ×2 (08:56→21:19)
[2018-11-30] MEDS ORDERED: FLUCONAZOLE 40 MG/ML ORAL SUSP PO SCH (09:00)
[2018-11-30] MEDS: FLUCONAZOLE 200 MG TABLET PO SCH (11:36)
[2018-11-30] MEDS: CHOLECALCIFEROL 1,000 UNIT TABLET PO SCH (15:01)
[2018-11-30 20:11] VITALS: BP 157/83
[2018-11-30] MEDS: LORazepam 0.5MG TABLET PO SCH (21:19)
[2018-12-01] MEDS: PIPERACILLIN/TAZO/PMX 2.25GM 50 ML IV SCH ×5 (00:08→23:55)
[2018-12-01 01:02] VITALS: BP 167/68
[2018-12-01] MEDS: LEVOTHYROXINE 50 MCG TABLET PO SCH (05:46)
[2018-12-01 06:14] LABS: BASOPHILS # (AUTO) 0.07 x10^3/uL (0-0.1); BASOPHILS % (AUTO) 1 % (0-1); EOSINOPHILS % (AUTO) 6 % (1-7); LYMPHOCYTES # (AUTO) 2.34 x10^3/uL (1-3.4); LYMPHOCYTES % (AUTO) 21 % (22-44); MD NO; MEAN CORPUSCULAR HEMOGLOBIN 29.3 pg (27.5-34.5); MEAN CORPUSCULAR HGB CONC 31.8 g/dL (33.2-36.2); MEAN PLATELET VOLUME 7.6 fL (7.4-10.4); MONOCYTES % (AUTO) 8 % (2-9); NEUTROPHILS # (AUTO) 6.98 x10^3/uL (1.8-6.8); NEUTROPHILS % (AUTO) 64 % (42-75); PLATELET COUNT 293 x10^3/uL (130-400); RED BLOOD COUNT 2.75 x10^6/uL (4.38-5.82); RED CELL DISTRIBUTION WIDTH 17.4 % (9.4-14.8)
[2018-12-01 06:22] LABS: ALANINE AMINOTRANSFERASE 9 U/L (12-78); ALBUMIN 1.9 g/dL (3.4-5.0); ANION GAP 9 mmol/L (5-15); CALCIUM 7.1 mg/dL (8.5-10.1); CHLORIDE 110 mmol/L (98-107); CREATININE 1.29 mg/dL (0.7-1.3)
[2018-12-01 06:24] LABS: ALKALINE PHOSPHATASE 69 U/L (45-117); BILIRUBIN,TOTAL 0.3 mg/dL (0.2-1.0); TOTAL PROTEIN 5.9 g/dL (6.4-8.2)
[2018-12-01] MEDS: INSULIN LISPRO 100 UNITS/ML, PEN SQ-INSULIN SCH ×4 (07:00→20:20)
[2018-12-01 09:40] VITALS: BP 151/74
[2018-12-01] MEDS: ASCORBIC ACID 500 MG TABLET PO SCH (09:45)
[2018-12-01] MEDS: FERROUS SULFATE 325 MG TABLET PO SCH (10:10)
[2018-12-01] MEDS: FLUCONAZOLE 200 MG TABLET PO SCH (10:11)
[2018-12-01] MEDS: OMEGA-3/FISH OIL CAPSULE PO SCH (10:11)
[2018-12-01] MEDS: ZINC SULFATE 220 MG CAPSULE PO SCH (10:11)
[2018-12-01] MEDS: HYDROcodone/APAP 10/325 MG TABLET PO SCH ×3 (10:11→21:10)
[2018-12-01] MEDS: SENNOSIDES 8.6 MG TABLET PO SCH ×2 (10:11→21:10)
[2018-12-01] MEDS: LISINOPRIL 10 MG TABLET PO SCH ×2 (10:12→21:10)
[2018-12-01] MEDS: AMLODIPINE 5 MG TABLET PO SCH (10:12)
[2018-12-01] MEDS: PANTOPRAZOLE GRAN. PKT 40 MG PO SCH (10:12)
[2018-12-01] MEDS: POTASSIUM CHLORIDE 20 MEQ TAB.ER.PRT PO SCH (10:13)
[2018-12-01] MEDS: SODIUM CHLORIDE FLUSH 10ML SYR IVF SCH ×2 (10:18→21:11)
[2018-12-01 15:13] VITALS: BP 119/64
[2018-12-01 20:48] VITALS: BP 129/65
[2018-12-01 21:09] VITALS: BP 120/59
[2018-12-01] MEDS: LORazepam 0.5MG TABLET PO SCH (21:10)
[2018-12-02 00:01] VITALS: BP 134/67
[2018-12-02] MEDS: PIPERACILLIN/TAZO/PMX 2.25GM 50 ML IV SCH (05:45)
[2018-12-02] MEDS: LEVOTHYROXINE 50 MCG TABLET PO SCH (05:45)
[2018-12-02] MEDS ORDERED: AMLO-150 PO (07:34)
[2018-12-02] MEDS ORDERED: FLUC200T PO (07:34)
[2018-12-02] MEDS ORDERED: LISI-167 PO (07:34)
[2018-12-02 07:46] VITALS: BP 148/72
[2018-12-02] MEDS: POTASSIUM CHLORIDE 20 MEQ TAB.ER.PRT PO SCH (07:48)
[2018-12-02] MEDS: ASCORBIC ACID 500 MG TABLET PO SCH (07:48)
[2018-12-02] MEDS: SODIUM CHLORIDE FLUSH 10ML SYR IVF SCH (07:48)
[2018-12-02] MEDS: SENNOSIDES 8.6 MG TABLET PO SCH (07:48)
[2018-12-02] MEDS: ZINC SULFATE 220 MG CAPSULE PO SCH (07:48)
[2018-12-02] MEDS: INSULIN LISPRO 100 UNITS/ML, PEN SQ-INSULIN SCH (07:49)
[2018-12-02] MEDS: PANTOPRAZOLE GRAN. PKT 40 MG PO SCH (07:49)
[2018-12-02] MEDS: FLUCONAZOLE 200 MG TABLET PO SCH (07:49)
[2018-12-02] MEDS: OMEGA-3/FISH OIL CAPSULE PO SCH (07:49)
[2018-12-02] MEDS: FERROUS SULFATE 325 MG TABLET PO SCH (07:49)
[2018-12-02] MEDS: LISINOPRIL 10 MG TABLET PO SCH (07:49)
[2018-12-02] MEDS: AMLODIPINE 5 MG TABLET PO SCH (07:49)
[2018-12-02] MEDS: HYDROcodone/APAP 10/325 MG TABLET PO SCH (07:49)
[2018-12-02 10:13] VITALS: BP 123/72
== END 2018-12-02 11:04 | DRG 853 ==
LOC: ED 10:34 → EDIP 12:59 → 4EST 14:00
PROVIDERS: ADMIT Internal Medicine; ATTEND Internal Medicine
PROC: 0T9B70Z Drainage of Bladder with Drainage Device, Via Natural or Artificial Opening (ICD-10-PCS; 2018-11-18)
PROC: 0TPBX0Z Removal of Drainage Device from Bladder, External Approach (ICD-10-PCS; 2018-11-18)
PROC: 5A1D70Z Performance of Urinary Filtration, Intermittent, Less than 6 Hours Per Day (ICD-10-PCS; 2018-11-20)
PROC: 02HV33Z Insertion of Infusion Device into Superior Vena Cava, Percutaneous Approach (ICD-10-PCS; 2018-11-20)
PROC: B5181ZA Fluoroscopy of Superior Vena Cava using Low Osmolar Contrast, Guidance (ICD-10-PCS; 2018-11-20)
PROC: 5A1D70Z Performance of Urinary Filtration, Intermittent, Less than 6 Hours Per Day (ICD-10-PCS; 2018-11-21)
PROC: 30233N1 Transfusion of Nonautologous Red Blood Cells into Peripheral Vein, Percutaneous Approach (ICD-10-PCS; 2018-11-21)
PROC: 5A1D70Z Performance of Urinary Filtration, Intermittent, Less than 6 Hours Per Day (ICD-10-PCS; 2018-11-22)
PROC: 5A1D70Z Performance of Urinary Filtration, Intermittent, Less than 6 Hours Per Day (ICD-10-PCS; 2018-11-24)
PROC: 0T5B8ZZ Destruction of Bladder, Via Natural or Artificial Opening Endoscopic (ICD-10-PCS; 2018-11-25)
PROC: 0TP98DZ Removal of Intraluminal Device from Ureter, Via Natural or Artificial Opening Endoscopic (ICD-10-PCS; 2018-11-25)
PROC: 0TCB8ZZ Extirpation of Matter from Bladder, Via Natural or Artificial Opening Endoscopic (ICD-10-PCS; 2018-11-25)
PROC: 0T778DZ Dilation of Left Ureter with Intraluminal Device, Via Natural or Artificial Opening Endoscopic (ICD-10-PCS; principal; 2018-11-25 15:00)
PROC: 02HV33Z Insertion of Infusion Device into Superior Vena Cava, Percutaneous Approach (ICD-10-PCS; 2018-11-30)
PROC: B548ZZA Ultrasonography of Superior Vena Cava, Guidance (ICD-10-PCS; 2018-11-30)
PROC: B5181ZA Fluoroscopy of Superior Vena Cava using Low Osmolar Contrast, Guidance (ICD-10-PCS; 2018-11-30)
PROC: 05PYX3Z Removal of Infusion Device from Upper Vein, External Approach (ICD-10-PCS; 2018-11-30)
DX: A41.59 Other Gram-negative sepsis (principal); E43 Unspecified severe protein-calorie malnutrition; J96.21 Acute and chronic respiratory failure with hypoxia; J15.9 Unspecified bacterial pneumonia; R65.21 Severe sepsis with septic shock; N17.9 Acute kidney failure, unspecified; G82.20 Paraplegia, unspecified; N25.81 Secondary hyperparathyroidism of renal origin; N13.6 Pyonephrosis; B95.2 Enterococcus as the cause of diseases classified elsewhere; B96.1 Klebsiella pneumoniae [K. pneumoniae] as the cause of diseases classified elsewhere; D63.1 Anemia in chronic kidney disease; E03.9 Hypothyroidism, unspecified; Z66 Do not resuscitate; E87.6 Hypokalemia; N31.9 Neuromuscular dysfunction of bladder, unspecified; E11.21 Type 2 diabetes mellitus with diabetic nephropathy; E11.649 Type 2 diabetes mellitus with hypoglycemia without coma; E11.65 Type 2 diabetes mellitus with hyperglycemia; E11.40 Type 2 diabetes mellitus with diabetic neuropathy, unspecified; E78.5 Hyperlipidemia, unspecified; D47.3 Essential (hemorrhagic) thrombocythemia; N30.21 Other chronic cystitis with hematuria; Z93.59 Other cystostomy status; Z93.6 Other artificial openings of urinary tract status; D50.9 Iron deficiency anemia, unspecified; E21.3 Hyperparathyroidism, unspecified; G89.29 Other chronic pain; M54.9 Dorsalgia, unspecified; E11.22 Type 2 diabetes mellitus with diabetic chronic kidney disease; N18.3 Chronic kidney disease, stage 3 (moderate); R62.7 Adult failure to thrive; Z16.12 Extended spectrum beta lactamase (ESBL) resistance; R31.9 Hematuria, unspecified; Z16.21 Resistance to vancomycin; E86.0 Dehydration; L89.159 Pressure ulcer of sacral region, unspecified stage; I12.9 Hypertensive chronic kidney disease with stage 1 through stage 4 chronic kidney disease, or unspecified chronic kidney disease; K21.9 Gastro-esophageal reflux disease without esophagitis; N32.89 Other specified disorders of bladder; Z68.27 Body mass index [BMI] 27.0-27.9, adult; Z79.899 Other long term (current) drug therapy; Z85.828 Personal history of other malignant neoplasm of skin; Z87.440 Personal history of urinary (tract) infections; Z87.442 Personal history of urinary calculi; Z87.891 Personal history of nicotine dependence; Z99.2 Dependence on renal dialysis
CPT/HCPCS: 36415; 36430; 36556; 36573; 36600; 71045; 74018; 75989; 76000; 76770; 77001; 80048; 80053; 80069; 80074; 81001; 82306; 82330; 82436; 82550; 82570; 82728; 82803; 82962; 83540; 83550; 83605; 83735; 83880; 83970; 84100; 84133; 84145; 84156; 84300; 84443; 84484; 84550; 85014; 85018; 85025; 85610; 85651; 85730; 86140; 86480; 86706; 86850; 86900; 86923; 87040; 87070; 87077; 87086; 87106; 87186; 87205; 93005; 96365; 96375; 99292; G0378; J0610; J0690; J0696; J1100; J1756; J2248; J2405; J2543; J2704; J2710; J3010; J3480; J7070; Q9967; C1751; C1769; C2617; J0330; J1450; J1642; J1815; J3475; J7030; J7040; P9016

== ENCOUNTER 2018-12-06 14:10 | Inpatient (IN) | payer MEDICARE, MEDICAID ==
[~2018-12-06] VITALS: Ht 177.8 cm; Wt 87.8 kg
[~2018-12-06 14:10] MED LIST changes: +AMLO-150 PO; +CARV6.252 PO; +CEFU250T66 PO; +FLUC200T PO; +IRON15TA3 PO; +LISI-167 PO; +PROBIOTIC GUMMIE
[2018-12-06] MEDS ORDERED: SODIUM CHLORIDE FLUSH 10ML SYR IVF ONE (14:30)
[2018-12-06] MEDS ORDERED: PLEASE ENTER HEIGHT AND WEIGHT MC SCH (14:30)
[2018-12-06] MEDS ORDERED: SODIUM CHLORIDE 0.9% 1,000ML IVBOLUS ONE (14:30)
[2018-12-06 14:52] LABS: INTERNATIONAL NORMALIZED RATIO 1.07 (0.93-1.1); PROTHROMBIN TIME 11.2 Seconds (9.6-11.5)
[2018-12-06 14:53] LABS: ALANINE AMINOTRANSFERASE 12 U/L (12-78); ALBUMIN 1.6 g/dL (3.4-5.0); ANION GAP 12 mmol/L (5-15); CALCIUM 6.5 mg/dL (8.5-10.1); CHLORIDE 108 mmol/L (98-107); CREATININE 4.85 mg/dL (0.7-1.3)
[2018-12-06 14:57] LABS: ALKALINE PHOSPHATASE 74 U/L (45-117); BILIRUBIN,TOTAL 0.3 mg/dL (0.2-1.0); TOTAL PROTEIN 5.5 g/dL (6.4-8.2); TROPONIN I < 0.015 ng/mL (0.000-0.045)
[2018-12-06 15:06] LABS: MEAN CORPUSCULAR HEMOGLOBIN 29.4 pg (27.5-34.5); MEAN CORPUSCULAR HGB CONC 32.1 g/dL (33.2-36.2); MEAN CORPUSCULAR VOLUME 91.4 fL (81-97); MEAN PLATELET VOLUME 7.4 fL (7.4-10.4); PLATELET COUNT 304 x10^3/uL (130-400); RED CELL DISTRIBUTION WIDTH 18.1 % (9.4-14.8)
[2018-12-06 15:14] LABS: BASOPHILS # (AUTO) 0.27 x10^3/uL (0-0.1); BASOPHILS % (AUTO) 2 % (0-1); EOSINOPHILS # (AUTO) 0.18 x10^3/uL (0-0.4); EOSINOPHILS % (AUTO) 1 % (1-7); LYMPHOCYTES # (AUTO) 1.56 x10^3/uL (1-3.4); LYMPHOCYTES % (AUTO) 11 % (22-44); MD SCAN; MONOCYTES # (AUTO) 0.67 x10^3/uL (0.2-0.8); MONOCYTES % (AUTO) 5 % (2-9); NEUTROPHILS # (AUTO) 11.16 x10^3/uL (1.8-6.8); NEUTROPHILS % (AUTO) 81 % (42-75)
--- NOTE | 2018-12-06 15:43 | NUR ---
2ND BAG AUGUSTO, PT AWAKE, FAMILY AT BEDSDIE WILL MOVE TO 17
--- NOTE | 2018-12-06 15:49 | NUR ---
REPORT GIVEN TO SHELTON
--- NOTE | 2018-12-06 16:06 | NUR ---
ASSUMED CARE OF PT. PT HAS BOLUS OF FLUID INFUSING. FAMILY AT BEDSIDE. BLOODY URINE NOTED IN CATHETER COLLECTION BAG. A&OX4, TALKING WITH FAMILY
[2018-12-06] MEDS ORDERED: SODIUM CHLORIDE FLUSH 10ML SYR IVF PRN (16:30)
--- NOTE | 2018-12-06 16:34 | NUR ---
SUPERVISOR BLOOD DONOR RECRUITERS AT BEDSIDE
[2018-12-06 16:56] VITALS: BP 85/35
[2018-12-06] MEDS ORDERED: PHARMACY MAY ADJ FOR RENAL FX MC PRN (17:00)
[2018-12-06] MEDS ORDERED: ONDANSETRON 2MG/ML, 2ML IVPush PRN (17:00)
[2018-12-06] MEDS ORDERED: ACETAMINOPHEN 325 MG TABLET PO PRN (17:00)
[2018-12-06] MEDS ORDERED: POTASSIUM CHLORIDE 20 MEQ TAB.ER.PRT PO ONE (17:00)
--- NOTE | 2018-12-06 17:05 | NUR ---
BLOOD INFUSING AFTER CONSENT OBTAINED FOR SAME. ULTRASOUND AT BEDSIDE
[2018-12-06 17:11] VITALS: BP 83/43
--- NOTE | 2018-12-06 19:05 | NUR ---
3 WAY CATH PLACED BY GIL JACKSON AND CBI STARTED AT SLOW, STEADY RATE. PT IN NO DISTRESS. CONTINUE TO MONITOR.
--- NOTE | 2018-12-06 19:08 | NUR ---
INMAN CATH PLACED USING STERILE TECHNIQUE, 3 WAY, FOR CBI. CATH BALLOON FILLED WITH 5 ML FLUID PER UROLOGIST.
[2018-12-06 19:30] VITALS: BP 100/40
[2018-12-06] MEDS: PIPERACILLIN/TAZO/PMX 2.25GM 50 ML IV SCH (19:32)
--- NOTE | 2018-12-06 19:45 | NUR ---
CONTINUE TO IRRIGATE BLADDER WITH NORMAL SALINE THROUGH URTHRAL CATHETER WITH COLLECTION BAG FOR URERTHRAL CATHER NOTED TO BE COLLECTING CLEAR BLADDER IRRIGATION FLUID
--- NOTE | 2018-12-06 19:51 | NUR ---
REPORT TO RENETTA CERRATO. PT TO BE TRANSPORTED TO ICU
--- NOTE | 2018-12-06 20:09 | NUR ---
TRANSFERRED TO ICU ON MONITOR WITH RN AND TECH.
--- NOTE | 2018-12-06 20:21 | NUR ---
late entry/belonging: this rn transported pt to ccu with right hearing aide only, family stated they took the left one with them.
[2018-12-06] MEDS: SODIUM CHLORIDE 0.9% 1,000 ML IV SCH (20:40)
[2018-12-06] MEDS: LORazepam 0.5MG TABLET PO SCH (20:40)
[2018-12-06] MEDS: HYDROcodone/APAP 10/325 MG TABLET PO SCH (20:41)
[2018-12-06] MEDS: NOREPINEPHRINE 4 MG in SODIUM CHLORIDE 0.9% 246 ML IV PRN (21:01)
[2018-12-06] MEDS ORDERED: LACTATED RINGERS 1,000 ML IVBOLUS ONE (22:30)
[2018-12-07] MEDS: SODIUM CHLORIDE 0.9% 1,000 ML IV SCH (01:33)
[2018-12-07] MEDS: NOREPINEPHRINE 4 MG in SODIUM CHLORIDE 0.9% 246 ML IV PRN (02:57)
[2018-12-07] MEDS: PIPERACILLIN/TAZO/PMX 2.25GM 50 ML IV SCH ×3 (02:57→19:56)
[2018-12-07 04:19] LABS: MEAN CORPUSCULAR HEMOGLOBIN 29.2 pg (27.5-34.5); MEAN CORPUSCULAR HGB CONC 31.4 g/dL (33.2-36.2); MEAN PLATELET VOLUME 7.1 fL (7.4-10.4); PLATELET COUNT 344 x10^3/uL (130-400); RED BLOOD COUNT 2.93 x10^6/uL (4.38-5.82); RED CELL DISTRIBUTION WIDTH 17.5 % (9.4-14.8)
[2018-12-07 04:29] LABS: ALBUMIN 1.5 g/dL (3.4-5.0); ANION GAP 14 mmol/L (5-15); CALCIUM 6.3 mg/dL (8.5-10.1); CHLORIDE 112 mmol/L (98-107)
[2018-12-07 04:32] LABS: ALANINE AMINOTRANSFERASE 12 U/L (12-78); ALKALINE PHOSPHATASE 75 U/L (45-117); BILIRUBIN,TOTAL 0.6 mg/dL (0.2-1.0); CREATININE 4.69 mg/dL (0.7-1.3); TOTAL PROTEIN 5.7 g/dL (6.4-8.2)
[2018-12-07 05:40] LABS: BASOPHILS # (AUTO) 0.13 x10^3/uL (0-0.1); BASOPHILS % (AUTO) 1 % (0-1); EOSINOPHILS % (AUTO) 2 % (1-7); LYMPHOCYTES % (AUTO) 12 % (22-44); MD SCAN; MONOCYTES # (AUTO) 0.88 x10^3/uL (0.2-0.8); MONOCYTES % (AUTO) 5 % (2-9); NEUTROPHILS # (AUTO) 14.14 x10^3/uL (1.8-6.8); NEUTROPHILS % (AUTO) 80 % (42-75)
[2018-12-07] MEDS ORDERED: MAGNESIUM SULFATE PMX 2GM/50ML 50 ML IV ONE (07:00)
[2018-12-07] MEDS: PANTOPRAZOLE GRAN. PKT 40 MG PO SCH (09:00)
[2018-12-07] MEDS: ATORVASTATIN 40 MG TABLET PO SCH (09:00)
[2018-12-07] MEDS: LEVOTHYROXINE 50 MCG TABLET PO SCH (09:00)
[2018-12-07] MEDS: HYDROcodone/APAP 10/325 MG TABLET PO SCH ×3 (09:00→21:00)
[2018-12-07 09:41] LABS: CREATININE,URINE RANDOM 96.5 mg/dL
[2018-12-07] MEDS ORDERED: LIDOCAINE-MPF 1%, 5ML ONE (10:13)
[2018-12-07] MEDS ORDERED: MIDAZOLAM 1 MG/ML, 5ML ONE (10:47)
[2018-12-07] MEDS ORDERED: FLUMAZENIL 0.1 MG/1 ML, 5ML ONE (10:47)
[2018-12-07] MEDS ORDERED: NALOXONE 1 MG/ML, 2ML ONE (10:47)
[2018-12-07] MEDS ORDERED: FENTANYL PF 100 MCG/2ML ONE (10:47)
[2018-12-07] MEDS ORDERED: VISIPAQUE 320MG/ML, 50ML BOTTLE ONE (11:00)
[2018-12-07] MEDS: SODIUM BICARBONATE 8.4% 150 MEQ in DEXTROSE 5% 1,000 ML IV SCH (13:55)
[2018-12-07 18:13] LABS: MICROSCOPIC INDICATED
[2018-12-07 18:14] LABS: CULTURE INDICATED? NO
[2018-12-07] MEDS: LORazepam 0.5MG TABLET PO SCH (21:00)
[2018-12-08] MEDS: PIPERACILLIN/TAZO/PMX 2.25GM 50 ML IV SCH ×3 (04:18→19:43)
[2018-12-08 05:50] LABS: BASOPHILS # (AUTO) 0.05 x10^3/uL (0-0.1); BASOPHILS % (AUTO) 0 % (0-1); EOSINOPHILS % (AUTO) 4 % (1-7); LYMPHOCYTES # (AUTO) 1.88 x10^3/uL (1-3.4); LYMPHOCYTES % (AUTO) 14 % (22-44); MD NO; MEAN CORPUSCULAR HEMOGLOBIN 29.9 pg (27.5-34.5); MEAN CORPUSCULAR HGB CONC 32.1 g/dL (33.2-36.2); MEAN CORPUSCULAR VOLUME 93.2 fL (81-97); MEAN PLATELET VOLUME 7.4 fL (7.4-10.4); MONOCYTES # (AUTO) 0.84 x10^3/uL (0.2-0.8); MONOCYTES % (AUTO) 6 % (2-9); NEUTROPHILS # (AUTO) 10.66 x10^3/uL (1.8-6.8); NEUTROPHILS % (AUTO) 77 % (42-75); PLATELET COUNT 336 x10^3/uL (130-400); RED BLOOD COUNT 2.87 x10^6/uL (4.38-5.82)
[2018-12-08 05:59] LABS: CHLORIDE 110 mmol/L (98-107)
[2018-12-08 06:03] LABS: ALBUMIN 1.4 g/dL (3.4-5.0); ANION GAP 15 mmol/L (5-15); CALCIUM 6.3 mg/dL (8.5-10.1); CREATININE 5.02 mg/dL (0.7-1.3)
[2018-12-08] MEDS: LEVOTHYROXINE 50 MCG TABLET PO SCH (07:34)
[2018-12-08] MEDS: HYDROcodone/APAP 10/325 MG TABLET PO SCH ×3 (09:00→19:38)
[2018-12-08] MEDS: PANTOPRAZOLE GRAN. PKT 40 MG PO SCH (09:14)
[2018-12-08] MEDS: ATORVASTATIN 40 MG TABLET PO SCH (09:14)
[2018-12-08] MEDS ORDERED: POTASSIUM CHLORIDE 40 MEQ in SODIUM CHLORIDE 0.9% 100 ML IV ONE ×2 (09:30→18:00)
[2018-12-08] MEDS ORDERED: POTASSIUM CHLORIDE PMX 100 ML IV ONE (13:30)
[2018-12-08 17:07] LABS: ANION GAP 11 mmol/L (5-15); CALCIUM 6.5 mg/dL (8.5-10.1); CHLORIDE 112 mmol/L (98-107); CREATININE 4.99 mg/dL (0.7-1.3)
[2018-12-08] MEDS: SODIUM BICARBONATE 8.4% 150 MEQ in DEXTROSE 5% 1,000 ML IV SCH (17:10)
[2018-12-08] MEDS: LORazepam 0.5MG TABLET PO SCH (19:38)
[2018-12-08 23:31] VITALS: BP 126/55
[2018-12-09 02:24] VITALS: BP 110/50
[2018-12-09] MEDS: PIPERACILLIN/TAZO/PMX 2.25GM 50 ML IV SCH ×3 (03:04→20:22)
[2018-12-09 07:42] VITALS: BP 137/61
[2018-12-09] MEDS: PANTOPRAZOLE GRAN. PKT 40 MG PO SCH (09:24)
[2018-12-09] MEDS: LEVOTHYROXINE 50 MCG TABLET PO SCH (09:24)
[2018-12-09] MEDS: HYDROcodone/APAP 10/325 MG TABLET PO SCH ×3 (09:24→20:22)
[2018-12-09] MEDS: ATORVASTATIN 40 MG TABLET PO SCH (09:24)
[2018-12-09 10:59] LABS: ALANINE AMINOTRANSFERASE 13 U/L (12-78); ALBUMIN 1.5 g/dL (3.4-5.0); ANION GAP 13 mmol/L (5-15); CALCIUM 6.6 mg/dL (8.5-10.1); CHLORIDE 111 mmol/L (98-107); CREATININE 4.97 mg/dL (0.7-1.3)
[2018-12-09 11:01] LABS: ALKALINE PHOSPHATASE 85 U/L (45-117); BILIRUBIN,TOTAL 0.3 mg/dL (0.2-1.0); TOTAL PROTEIN 5.8 g/dL (6.4-8.2)
[2018-12-09 12:18] VITALS: BP 145/62
[2018-12-09] MEDS: POTASSIUM CHLORIDE 10 MEQ in SODIUM CHLORIDE 0.45% 1,000 ML IV SCH (13:24)
[2018-12-09 16:01] LABS: ALBUMIN 1.5 g/dL (3.4-5.0); ANION GAP 11 mmol/L (5-15); CALCIUM 6.5 mg/dL (8.5-10.1); CHLORIDE 110 mmol/L (98-107); CREATININE 4.87 mg/dL (0.7-1.3)
[2018-12-09] MEDS: LORazepam 0.5MG TABLET PO SCH (20:21)
[2018-12-09 20:23] VITALS: BP 130/59
[2018-12-09 20:32] VITALS: BP 119/56
[2018-12-10 02:00] VITALS: BP 145/70
[2018-12-10] MEDS: POTASSIUM CHLORIDE 10 MEQ in SODIUM CHLORIDE 0.45% 1,000 ML IV SCH ×2 (02:52→20:08)
[2018-12-10 03:35] LABS: BASOPHILS # (AUTO) 0.06 x10^3/uL (0-0.1); BASOPHILS % (AUTO) 1 % (0-1); EOSINOPHILS # (AUTO) 0.76 x10^3/uL (0-0.4); EOSINOPHILS % (AUTO) 7 % (1-7); LYMPHOCYTES % (AUTO) 22 % (22-44); MD NO; MEAN CORPUSCULAR HEMOGLOBIN 29.4 pg (27.5-34.5); MEAN CORPUSCULAR HGB CONC 32.3 g/dL (33.2-36.2); MEAN PLATELET VOLUME 7.3 fL (7.4-10.4); MONOCYTES # (AUTO) 0.71 x10^3/uL (0.2-0.8); MONOCYTES % (AUTO) 7 % (2-9); NEUTROPHILS # (AUTO) 6.46 x10^3/uL (1.8-6.8); NEUTROPHILS % (AUTO) 63 % (42-75); PLATELET COUNT 323 x10^3/uL (130-400); RED BLOOD COUNT 3.04 x10^6/uL (4.38-5.82); RED CELL DISTRIBUTION WIDTH 17.6 % (9.4-14.8)
[2018-12-10 03:40] LABS: ALANINE AMINOTRANSFERASE 11 U/L (12-78); ALBUMIN 1.5 g/dL (3.4-5.0); ANION GAP 12 mmol/L (5-15); CALCIUM 6.3 mg/dL (8.5-10.1); CHLORIDE 109 mmol/L (98-107); CREATININE 4.67 mg/dL (0.7-1.3)
[2018-12-10 03:42] LABS: ALKALINE PHOSPHATASE 91 U/L (45-117); BILIRUBIN,TOTAL 0.1 mg/dL (0.2-1.0); TOTAL PROTEIN 5.8 g/dL (6.4-8.2)
[2018-12-10] MEDS: PIPERACILLIN/TAZO/PMX 2.25GM 50 ML IV SCH ×3 (04:24→21:27)
[2018-12-10 06:53] VITALS: BP 140/73
[2018-12-10] MEDS: PANTOPRAZOLE GRAN. PKT 40 MG PO SCH (11:05)
[2018-12-10] MEDS: HYDROcodone/APAP 10/325 MG TABLET PO SCH ×3 (11:05→21:24)
[2018-12-10] MEDS: ATORVASTATIN 40 MG TABLET PO SCH (11:05)
[2018-12-10] MEDS: LEVOTHYROXINE 50 MCG TABLET PO SCH (11:05)
[2018-12-10] MEDS: CALCIUM CARBONATE 500 MG TABLET PO SCH ×2 (13:03→21:24)
[2018-12-10 13:43] VITALS: BP 130/64
[2018-12-10 18:43] VITALS: BP 120/68
[2018-12-10] MEDS: LORazepam 0.5MG TABLET PO SCH (21:23)
[2018-12-11 00:52] VITALS: BP 135/71
[2018-12-11] MEDS: PIPERACILLIN/TAZO/PMX 2.25GM 50 ML IV SCH ×3 (05:08→21:00)
[2018-12-11 05:21] LABS: ALANINE AMINOTRANSFERASE 12 U/L (12-78); ALBUMIN 1.5 g/dL (3.4-5.0); ANION GAP 12 mmol/L (5-15); CALCIUM 6.4 mg/dL (8.5-10.1); CHLORIDE 110 mmol/L (98-107); CREATININE 4.33 mg/dL (0.7-1.3)
[2018-12-11 05:22] LABS: BASOPHILS # (AUTO) 0.06 x10^3/uL (0-0.1); BASOPHILS % (AUTO) 1 % (0-1); EOSINOPHILS # (AUTO) 0.79 x10^3/uL (0-0.4); EOSINOPHILS % (AUTO) 9 % (1-7); LYMPHOCYTES # (AUTO) 1.95 x10^3/uL (1-3.4); LYMPHOCYTES % (AUTO) 22 % (22-44); MD NO; MEAN CORPUSCULAR HEMOGLOBIN 29.6 pg (27.5-34.5); MEAN CORPUSCULAR HGB CONC 32.2 g/dL (33.2-36.2); MEAN CORPUSCULAR VOLUME 91.9 fL (81-97); MEAN PLATELET VOLUME 7.4 fL (7.4-10.4); MONOCYTES # (AUTO) 0.78 x10^3/uL (0.2-0.8); MONOCYTES % (AUTO) 9 % (2-9); NEUTROPHILS # (AUTO) 5.33 x10^3/uL (1.8-6.8); NEUTROPHILS % (AUTO) 60 % (42-75); PLATELET COUNT 324 x10^3/uL (130-400); RED BLOOD COUNT 2.84 x10^6/uL (4.38-5.82); RED CELL DISTRIBUTION WIDTH 18.1 % (9.4-14.8)
[2018-12-11 05:23] LABS: ALKALINE PHOSPHATASE 96 U/L (45-117); BILIRUBIN,TOTAL 0.2 mg/dL (0.2-1.0); TOTAL PROTEIN 5.7 g/dL (6.4-8.2)
[2018-12-11] MEDS ORDERED: PHARMACY INSTRUCTION MC SCH ×2 (08:00→14:30)
[2018-12-11] MEDS ORDERED: FLUCONAZOLE 200 MG/100 ML 100 ML IV SCH ×2 (08:00→15:00)
[2018-12-11 08:47] VITALS: BP 130/64
[2018-12-11] MEDS: HYDROcodone/APAP 10/325 MG TABLET PO SCH ×3 (09:00→20:59)
[2018-12-11] MEDS: FLUCONAZOLE 200 MG/100 ML 100 ML IV SCH (09:15)
[2018-12-11] MEDS: LEVOTHYROXINE 50 MCG TABLET PO SCH (11:21)
[2018-12-11] MEDS: CALCIUM CARBONATE 500 MG TABLET PO SCH ×2 (11:21→20:59)
[2018-12-11] MEDS: ATORVASTATIN 40 MG TABLET PO SCH (11:21)
[2018-12-11] MEDS: PANTOPRAZOLE GRAN. PKT 40 MG PO SCH (11:21)
[2018-12-11] MEDS: POTASSIUM CHLORIDE 20 MEQ in SODIUM CHLORIDE 0.45% 1,000 ML IV SCH (13:05)
[2018-12-11 14:20] VITALS: BP 132/63
[2018-12-11 19:49] VITALS: BP 146/69
[2018-12-11] MEDS: LORazepam 0.5MG TABLET PO SCH (20:59)
[2018-12-12] MEDS: POTASSIUM CHLORIDE 20 MEQ in SODIUM CHLORIDE 0.45% 1,000 ML IV SCH ×2 (00:07→18:19)
[2018-12-12 00:11] VITALS: BP 122/65
[2018-12-12 05:06] LABS: BASOPHILS # (AUTO) 0.03 x10^3/uL (0-0.1); BASOPHILS % (AUTO) 0 % (0-1); EOSINOPHILS % (AUTO) 9 % (1-7); LYMPHOCYTES # (AUTO) 2.28 x10^3/uL (1-3.4); LYMPHOCYTES % (AUTO) 26 % (22-44); MD NO; MEAN CORPUSCULAR HEMOGLOBIN 29.5 pg (27.5-34.5); MEAN CORPUSCULAR HGB CONC 32.3 g/dL (33.2-36.2); MEAN CORPUSCULAR VOLUME 91.4 fL (81-97); MEAN PLATELET VOLUME 7.3 fL (7.4-10.4); MONOCYTES # (AUTO) 0.68 x10^3/uL (0.2-0.8); MONOCYTES % (AUTO) 8 % (2-9); NEUTROPHILS # (AUTO) 4.88 x10^3/uL (1.8-6.8); NEUTROPHILS % (AUTO) 56 % (42-75); PLATELET COUNT 307 x10^3/uL (130-400); RED BLOOD COUNT 2.87 x10^6/uL (4.38-5.82); RED CELL DISTRIBUTION WIDTH 17.8 % (9.4-14.8)
[2018-12-12 05:10] LABS: ALBUMIN 1.5 g/dL (3.4-5.0); ANION GAP 10 mmol/L (5-15); CALCIUM 6.5 mg/dL (8.5-10.1); CHLORIDE 110 mmol/L (98-107); CREATININE 3.86 mg/dL (0.7-1.3)
[2018-12-12] MEDS: PIPERACILLIN/TAZO/PMX 2.25GM 50 ML IV SCH ×3 (05:22→20:12)
[2018-12-12 07:02] VITALS: BP 126/66
[2018-12-12] MEDS: ATORVASTATIN 40 MG TABLET PO SCH (10:00)
[2018-12-12] MEDS: CALCIUM CARBONATE 500 MG TABLET PO SCH ×2 (10:00→20:12)
[2018-12-12] MEDS: HYDROcodone/APAP 10/325 MG TABLET PO SCH ×3 (10:00→20:13)
[2018-12-12] MEDS: LEVOTHYROXINE 50 MCG TABLET PO SCH (10:00)
[2018-12-12] MEDS: PANTOPRAZOLE GRAN. PKT 40 MG PO SCH (10:01)
[2018-12-12 13:33] VITALS: BP 122/62
[2018-12-12] MEDS: POTASSIUM CHLORIDE 20 MEQ TAB.ER.PRT PO SCH ×2 (14:55→18:19)
[2018-12-12 18:33] VITALS: BP 127/64
[2018-12-12] MEDS ORDERED: POTASSIUM CHLORIDE 20 MEQ TAB.ER.PRT PO ONE (19:30)
[2018-12-12] MEDS: LORazepam 0.5MG TABLET PO SCH (20:12)
[2018-12-13 00:47] VITALS: BP 125/65
[2018-12-13] MEDS: PIPERACILLIN/TAZO/PMX 2.25GM 50 ML IV SCH ×2 (05:30→14:58)
[2018-12-13 06:15] LABS: BASOPHILS # (AUTO) 0.05 x10^3/uL (0-0.1); BASOPHILS % (AUTO) 1 % (0-1); EOSINOPHILS # (AUTO) 0.98 x10^3/uL (0-0.4); EOSINOPHILS % (AUTO) 10 % (1-7); LYMPHOCYTES # (AUTO) 2.04 x10^3/uL (1-3.4); LYMPHOCYTES % (AUTO) 21 % (22-44); MD NO; MEAN CORPUSCULAR HEMOGLOBIN 29.6 pg (27.5-34.5); MEAN CORPUSCULAR HGB CONC 32.4 g/dL (33.2-36.2); MEAN CORPUSCULAR VOLUME 91.3 fL (81-97); MEAN PLATELET VOLUME 7.4 fL (7.4-10.4); MONOCYTES # (AUTO) 0.75 x10^3/uL (0.2-0.8); MONOCYTES % (AUTO) 8 % (2-9); NEUTROPHILS # (AUTO) 5.72 x10^3/uL (1.8-6.8); NEUTROPHILS % (AUTO) 60 % (42-75); PLATELET COUNT 333 x10^3/uL (130-400); RED BLOOD COUNT 3.04 x10^6/uL (4.38-5.82); RED CELL DISTRIBUTION WIDTH 18.3 % (9.4-14.8)
[2018-12-13 06:30] LABS: ANION GAP 9 mmol/L (5-15); CALCIUM 6.4 mg/dL (8.5-10.1); CHLORIDE 112 mmol/L (98-107); CREATININE 3.47 mg/dL (0.7-1.3)
[2018-12-13 07:56] VITALS: BP 141/70
[2018-12-13] MEDS: FLUCONAZOLE 200 MG/100 ML 100 ML IV SCH (08:29)
[2018-12-13] MEDS: POTASSIUM CHLORIDE 20 MEQ in SODIUM CHLORIDE 0.45% 1,000 ML IV SCH (08:29)
[2018-12-13] MEDS: POTASSIUM CHLORIDE 20 MEQ TAB.ER.PRT PO SCH ×2 (08:30→21:20)
[2018-12-13] MEDS: PANTOPRAZOLE GRAN. PKT 40 MG PO SCH (08:30)
[2018-12-13] MEDS: CALCIUM CARBONATE 500 MG TABLET PO SCH ×2 (08:30→21:20)
[2018-12-13] MEDS: LEVOTHYROXINE 50 MCG TABLET PO SCH (08:30)
[2018-12-13] MEDS: ATORVASTATIN 40 MG TABLET PO SCH (08:30)
[2018-12-13] MEDS: HYDROcodone/APAP 10/325 MG TABLET PO SCH ×3 (08:30→21:00)
[2018-12-13 12:14] VITALS: BP 131/66
[2018-12-13] MEDS ORDERED: MAGNESIUM SULFATE 4 GM in SODIUM CHLORIDE 0.9% 100 ML IV ONE (16:00)
[2018-12-13] MEDS ORDERED: MAGNESIUM SULFATE PMX 4GM/100M 100 ML IV ONE (16:00)
[2018-12-13] MEDS ORDERED: FENTANYL PF 250 MCG/5ML ONE (17:30)
[2018-12-13] MEDS ORDERED: MIDAZOLAM 1 MG/ML, 2ML ONE (17:30)
[2018-12-13] MEDS ORDERED: ONDANSETRON 2MG/ML, 2ML ONE ×2 (18:13→18:16)
[2018-12-13] MEDS ORDERED: ROCURONIUM 10MG/ML,5ML ONE (18:16)
[2018-12-13] MEDS ORDERED: LIDOCAINE-MPF 2% ,5ML ONE (18:16)
[2018-12-13] MEDS ORDERED: PROPOFOL 10 MG/ML, 20ML ONE (18:16)
[2018-12-13] MEDS ORDERED: SUGAMMADEX 200 MG/2 ML IVPush ONE (18:16)
[2018-12-13] MEDS ORDERED: SUCCINYLCHOLINE 20 MG/ML, 10ML ONE (18:16)
[2018-12-13] MEDS ORDERED: FENTANYL PF 100 MCG/2ML ONE (18:26)
[2018-12-13] MEDS ORDERED: METOPROLOL 1 MG/ML, 5ML ONE (18:28)
[2018-12-13] MEDS ORDERED: METOPROLOL 1 MG/ML, 5ML IV PRN (18:30)
[2018-12-13] MEDS ORDERED: MEPERIDINE/PF 25MG/0.5ML IVPush PRN (18:30)
[2018-12-13] MEDS ORDERED: HYDROmorphone 2 MG/ML, 1ML IVPush PRN (18:30)
[2018-12-13] MEDS ORDERED: HALOPERIDOL 5 MG/ML IV PRN (18:30)
[2018-12-13] MEDS ORDERED: FENTANYL PF 100 MCG/2ML IV PRN (18:30)
[2018-12-13] MEDS ORDERED: PROMETHAZINE 25 MG/ML, 1ML IV PRN (18:30)
[2018-12-13] MEDS ORDERED: OXYcodone 5 MG/5 ML ORAL.SOL UDC PO PRN (18:30)
[2018-12-13 20:29] VITALS: BP 131/66
[2018-12-13] MEDS ORDERED: OMNIPAQUE 350 MG/ML, 50 ML BOTTLE ONE (20:58)
[2018-12-13] MEDS ORDERED: POTASSIUM CHLORIDE 20 MEQ TAB.ER.PRT ONE (21:06)
[2018-12-13] MEDS: LORazepam 0.5MG TABLET PO SCH (21:21)
[2018-12-13 23:50] VITALS: BP 122/60
[2018-12-14] MEDS: PIPERACILLIN/TAZO/PMX 2.25GM 50 ML IV SCH ×3 (02:01→18:21)
[2018-12-14] MEDS: POTASSIUM CHLORIDE 20 MEQ in SODIUM CHLORIDE 0.45% 1,000 ML IV SCH (02:43)
[2018-12-14 02:47] VITALS: BP 129/61
[2018-12-14 08:14] VITALS: BP 135/64
[2018-12-14] MEDS: PANTOPRAZOLE GRAN. PKT 40 MG PO SCH (09:39)
[2018-12-14] MEDS: CALCIUM CARBONATE 500 MG TABLET PO SCH ×2 (09:39→21:18)
[2018-12-14] MEDS: ATORVASTATIN 40 MG TABLET PO SCH (09:39)
[2018-12-14] MEDS: LEVOTHYROXINE 50 MCG TABLET PO SCH (09:39)
[2018-12-14] MEDS: HYDROcodone/APAP 10/325 MG TABLET PO SCH ×3 (09:39→21:17)
[2018-12-14 14:45] VITALS: BP 136/62
[2018-12-14] MEDS: SODIUM CHLORIDE 0.45% 1,000 ML IV SCH (16:19)
[2018-12-14 19:43] VITALS: BP 141/69
[2018-12-14] MEDS: LORazepam 0.5MG TABLET PO SCH (21:18)
[2018-12-15 00:17] VITALS: BP 130/56
[2018-12-15] MEDS: PIPERACILLIN/TAZO/PMX 2.25GM 50 ML IV SCH ×2 (02:41→10:51)
[2018-12-15] MEDS: SODIUM CHLORIDE 0.45% 1,000 ML IV SCH (05:51)
[2018-12-15 08:02] VITALS: BP 113/69
[2018-12-15 08:17] VITALS: BP 149/74
[2018-12-15] MEDS: HYDROcodone/APAP 10/325 MG TABLET PO SCH ×2 (08:20→16:00)
[2018-12-15] MEDS: CALCIUM CARBONATE 500 MG TABLET PO SCH (08:20)
[2018-12-15] MEDS: ATORVASTATIN 40 MG TABLET PO SCH (08:20)
[2018-12-15] MEDS: PANTOPRAZOLE GRAN. PKT 40 MG PO SCH (08:20)
[2018-12-15] MEDS: FLUCONAZOLE 200 MG/100 ML 100 ML IV SCH (08:20)
[2018-12-15] MEDS ORDERED: LEVOTHYROXINE 50 MCG TABLET PO SCH (08:30)
[2018-12-15] MEDS ORDERED: CARV3.1212 PO (13:19)
[2018-12-15] MEDS ORDERED: CALC500T11 PO (13:19)
[2018-12-15] MEDS ORDERED: FLUC200T PO (13:19)
[2018-12-15 14:48] LABS: ANION GAP 13 mmol/L (5-15); CHLORIDE 109 mmol/L (98-107); CREATININE 2.37 mg/dL (0.7-1.3)
[2018-12-15 15:29] VITALS: BP 128/58
[2018-12-16] MEDS ORDERED: LEVOTHYROXINE 50 MCG TABLET PO SCH ×2 (06:00→08:00)
== END 2018-12-15 17:15 | disposition home health service (06) | DRG 853 ==
LOC: SUATTDRO 16:02 → ED 17:33 → EDIP 17:48 → CCU 20:06 → 4WST 12-08 21:42
PROVIDERS: ADMIT Internal Medicine; ATTEND Internal Medicine
PROC: 30233N1 Transfusion of Nonautologous Red Blood Cells into Peripheral Vein, Percutaneous Approach (ICD-10-PCS; 2018-12-06)
PROC: 0T943ZZ Drainage of Left Kidney Pelvis, Percutaneous Approach (ICD-10-PCS; 2018-12-07)
PROC: 0TCB8ZZ Extirpation of Matter from Bladder, Via Natural or Artificial Opening Endoscopic (ICD-10-PCS; 2018-12-13)
PROC: 0TP98DZ Removal of Intraluminal Device from Ureter, Via Natural or Artificial Opening Endoscopic (ICD-10-PCS; 2018-12-13)
PROC: BT1B1ZZ Fluoroscopy of Bladder and Urethra using Low Osmolar Contrast (ICD-10-PCS; 2018-12-13)
PROC: 0T5B8ZZ Destruction of Bladder, Via Natural or Artificial Opening Endoscopic (ICD-10-PCS; principal; 2018-12-13 17:00)
DX: A41.9 Sepsis, unspecified organism (principal); E43 Unspecified severe protein-calorie malnutrition; N17.0 Acute kidney failure with tubular necrosis; J18.9 Pneumonia, unspecified organism; R53.2 Functional quadriplegia; R65.21 Severe sepsis with septic shock; I13.0 Hypertensive heart and chronic kidney disease with heart failure and stage 1 through stage 4 chronic kidney disease, or unspecified chronic kidney disease; D62 Acute posthemorrhagic anemia; J96.11 Chronic respiratory failure with hypoxia; N17.9 Acute kidney failure, unspecified; B37.49 Other urogenital candidiasis; N02.9 Recurrent and persistent hematuria with unspecified morphologic changes; N13.2 Hydronephrosis with renal and ureteral calculous obstruction; N25.81 Secondary hyperparathyroidism of renal origin; N30.40 Irradiation cystitis without hematuria; D63.1 Anemia in chronic kidney disease; L98.419 Non-pressure chronic ulcer of buttock with unspecified severity; N18.2 Chronic kidney disease, stage 2 (mild); T83.098A Other mechanical complication of other urinary catheter, initial encounter; Y83.8 Other surgical procedures as the cause of abnormal reaction of the patient, or of later complication, without mention of misadventure at the time of the procedure; Y92.89 Other specified places as the place of occurrence of the external cause; B96.1 Klebsiella pneumoniae [K. pneumoniae] as the cause of diseases classified elsewhere; B96.89 Other specified bacterial agents as the cause of diseases classified elsewhere; E03.9 Hypothyroidism, unspecified; E11.21 Type 2 diabetes mellitus with diabetic nephropathy; E11.22 Type 2 diabetes mellitus with diabetic chronic kidney disease; E11.40 Type 2 diabetes mellitus with diabetic neuropathy, unspecified; E55.9 Vitamin D deficiency, unspecified; E78.5 Hyperlipidemia, unspecified; E83.42 Hypomagnesemia; E87.6 Hypokalemia; I50.9 Heart failure, unspecified; K21.9 Gastro-esophageal reflux disease without esophagitis; L89.159 Pressure ulcer of sacral region, unspecified stage; N18.3 Chronic kidney disease, stage 3 (moderate); N30.21 Other chronic cystitis with hematuria; N31.9 Neuromuscular dysfunction of bladder, unspecified; R62.7 Adult failure to thrive; Y84.2 Radiological procedure and radiotherapy as the cause of abnormal reaction of the patient, or of later complication, without mention of misadventure at the time of the procedure; Z66 Do not resuscitate; Z87.891 Personal history of nicotine dependence; Z93.6 Other artificial openings of urinary tract status; Z99.3 Dependence on wheelchair; Z68.27 Body mass index [BMI] 27.0-27.9, adult
CPT/HCPCS: 36415; 36430; 50432; 51702; 71045; 74018; 74420; 76000; 76770; 76942; 80048; 80053; 80069; 81001; 82043; 82306; 82330; 82533; 82570; 82962; 83605; 83735; 83880; 83970; 84100; 84156; 84484; 84550; 85014; 85018; 85025; 85610; 85730; 86850; 86900; 86923; 87040; 87081; 87086; 87106; 93005; C1894; G0378; J2250; J2405; J2543; J2704; J3010; J3480; J7070; Q9967; C1729; C1769; J0330; J1450; J2310; J3475; J7030; J7050; J7120; P9016